=== PATIENT | female | born 1955 | race Caucasian/White ===

== ENCOUNTER 2021-05-18 13:40 | Outpatient (CLI) | payer MEDICARE ==
--- NOTE | 2021-05-18 16:54 | XRAY Report ---
PROCEDURE: Hip w/Pelvis 2-3V RT INDICATIONS: PAIN IN RIGHT HIP TECHNIQUE: AP pelvis with lateral view(s) of the hip(s). COMPARISON: None. FINDINGS: Bones: No acute fractures or dislocations. There is mild flattening deformity of the right femoral h ead. Pelvic ring appears intact. No suspicious bony lesions. Severe right hip joint space narrowing . Moderate right hip joint periarticular osteophyte formation. Subchondral cyst formation and scleros is adjacent to the right hip. Soft tissues: The visualized bowel gas pattern is normal. No suspicious soft tissue calcifications. IMPRESSION: 1. Severe right hip osteoarthritis, possibly secondary to avascular necrosis. Initial further assessm ent with MRI is recommended. Reviewed by: Satish Mccallum MD on 05/18/2021 4:53 PM PST Approved by: Satish Mccallum MD on 05/18/2021 4:53 PM [facility] Station ID: [id number]
== END 2021-05-18 13:41 | disposition home or self-care (01) ==
LOC: DI.N 13:40
PROVIDERS: ATTEND Internal Medicine
DX: M16.11 Unilateral primary osteoarthritis, right hip (principal)

== ENCOUNTER 2021-06-28 12:30 | Outpatient (CLI) | payer MEDICARE ==
--- NOTE | 2021-06-28 16:30 | MRI Report ---
PROCEDURE: Hip RT W/O INDICATIONS: RIGHT HIP PAIN TECHNIQUE: Noncontrast coronal T1 spin echo and STIR through the bony pelvis. Coronal and axial T2 fast spin ec ho with fat saturation, sagittal T1 spin echo, and oblique axial T2 fast spin echo with fat saturatio n through the hip. COMPARISON: Right hip radiographs 05/18/2021. FINDINGS: Image quality: Excellent. Bones and joints: There is full-thickness cartilage loss in the right hip with subchondral cystic ch anges and prominent subchondral edema on both sides of the joint. Marginal osteophytes are present. T here is a moderate joint effusion with moderate synovial hypertrophy. No double line sign is seen to suggest active osteonecrosis. There is mild remodeling of the superior humeral head. Diffuse labral d egeneration is noted. Bone marrow of the pelvic ring and left proximal femur show normal signal throughout. No intraosseo us lesions or acute fractures. Disc desiccation and degenerative endplate changes are seen in the inc luded lower lumbar spine, most prominent at L5-S1. 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 Tendons: The gluteus medius and minimus tendons appear intact, without associated muscle atrophy. T he iliopsoas tendon appears intact, without adjacent bursal fluid collections. Mild proximal hamstrin g tendinosis bilaterally. The tendons for the direct and indirect heads of the rectus femoris muscle appear intact. Soft tissues: There is mild generalized fatty infiltration of the musculature surrounding the hips.. The proximal sciatic neurovascular bundle appears normal adjacent to the hamstring tendons. A large right adnexal simple appearing cyst is seen measuring up to 7.4 x 7.0 x 7.5 cm. IMPRESSION: 1.Severe end-stage degenerative changes in the right hip with mild remodeling of the right femoral he ad and moderate surrounding osseous edema. A moderate joint effusion is seen with synovial hypertroph y. Findings may be secondary to primary osteoarthrosis versus prior trauma or avascular necrosis with secondary degenerative changes, or possibly a nonspecific chronic infectious or inflammatory process . No signs of active osteonecrosis. 2.Degenerative changes in the included lower lumbar spine. 3.Large right adnexal 7.5 cm simple appearing cyst. Consider gynecological consultation. Reviewed by: Dirk Lin MD on 06/28/2021 4:28 PM PDT Approved by: Dirk Lin MD on 06/28/2021 4:28 PM PDT Station ID: [id number]
== END 2021-06-28 12:31 | disposition home or self-care (01) ==
LOC: DI 12:30
PROVIDERS: ATTEND Internal Medicine
DX: M16.11 Unilateral primary osteoarthritis, right hip (principal); M25.451 Effusion, right hip; M67.251 Synovial hypertrophy, not elsewhere classified, right thigh; M47.816 Spondylosis without myelopathy or radiculopathy, lumbar region; N83.8 Other noninflammatory disorders of ovary, fallopian tube and broad ligament

== ENCOUNTER 2022-01-28 11:48 | Outpatient (CLI) | payer MEDICARE ==
--- NOTE | 2022-01-29 07:58 | XRAY Report ---
PROCEDURE: Hip w/Pelvis 1V RT INDICATIONS: R HIP PX TECHNIQUE: AP pelvis with lateral view(s) of the right hip(s). COMPARISON: 05/18/2021 FINDINGS: Bones: No fractures or dislocations. There is severe asymmetric degenerative change in the right hip including superior migration of the femoral head and the acetabulum, flattening and subcortical cyst ic changes of the femoral head, spurring and subcortical sclerosis, and cystic changes at the superio r acetabulum. 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 Pelvic r ing appears intact. No suspicious bony lesions. Soft tissues: The visualized bowel gas pattern is normal. No suspicious soft tissue calcifications. IMPRESSION: 1. 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 2. No significant progression since the prior study of 05/18/2021. Reviewed by: Radha Contreras MD on 01/29/2022 7:56 AM PST Approved by: Radha Contreras MD on 01/29/2022 7:56 AM PST Station ID: [id number]
== END 2022-01-28 11:49 | disposition home or self-care (01) ==
LOC: DI.N 11:48
PROVIDERS: ATTEND Orthopaedic Surgery
DX: M16.11 Unilateral primary osteoarthritis, right hip (principal); Q65.89 Other specified congenital deformities of hip

== ENCOUNTER 2022-02-13 06:47 | Inpatient (IN) | payer MEDICARE ==
[~2022-02-13 06:47] MED LIST: ACETAMINOPHEN 500 MG TABLET PO ONE; CEFAZOLIN 2G/50ML 0.9% NS 2 GM/50 ML BAG IV ONE; CELECOXIB 100 MG CAPSULE PO ONE
[2022-02-13] MEDS ORDERED: VANCOMYCIN 1 GM VIAL ONE (06:55)
[2022-02-13] MEDS ORDERED: BUPIVACAINE 0.25% PF 10 ML VIAL ONE (06:59)
[2022-02-13] MEDS ORDERED: PROPOFOL 500 MG/50 ML 500 MG/50 ML VIAL ONE ×3 (07:18→10:37)
[2022-02-13] MEDS ORDERED: DEXAMETHASONE 10 MG/ML VIAL ONE (07:19)
[2022-02-13] MEDS ORDERED: TRANEXAMIC ACID 1,000 MG/10 ML VIAL ONE (07:19)
[2022-02-13] MEDS ORDERED: BUPIVACAINE 0.5% PF 10 ML VIAL ONE (07:19)
[2022-02-13] MEDS ORDERED: PROPOFOL 200 MG/20 ML VIAL IVP ONE ×3 (07:19→08:50)
[2022-02-13] MEDS ORDERED: fentaNYL 100 MCG/2 ML VIAL ONE ×2 (07:20→12:35)
[2022-02-13] MEDS ORDERED: MIDAZOLAM 2 MG/2 ML VIAL ONE (07:20)
--- NOTE | 2022-02-13 07:37 | ANESTHESIA ---
Pre-Anesthesia VS, & Labs - Diagnosis right hip ostoarthritis - Procedure total hip arthroplasty Vital Signs: Temp Pulse Resp BP Pulse Ox O2 Flow Rate 36.6 C 77 20 194/106 H 97 02/13/22 06:53 02/13/22 06:53 02/13/22 06:53 02/13/22 06:53 02/13/22 06:53 Height: 5 ft 8 in Weight (kg): 76 kg Body Mass Index: 25.4 BMI Classification: Overweight - NPO >8 hours - Is Patient ?: No - Lab Results Current Lab Results: Laboratory Tests 02/13/22 07:13: POC Whole Bld Glucose 107 H Home Medications and Allergies Home Medications: Ambulatory Orders Acetaminophen [Tylenol] 650 mg PO Q6H PRN 02/07/22 Bupropion HCl [Wellbutrin Xl] 300 mg PO DAILY 02/07/22 Calcium Carbonate [Calcium] 600 mg PO DAILY 02/07/22 Cholecalciferol [Vitamin D3] 50 mcg PO DAILY 02/07/22 Gabapentin [Neurontin] 300 mg PO DAILY 02/07/22 Ibuprofen [Motrin] 600 mg PO Q6H PRN 02/07/22 Lisinopril [Zestril] 40 mg PO DAILY 02/07/22 Omeprazole 20 mg PO PRN PRN 02/07/22 Oxycodone HCl/Acetaminophen [Oxycodone-Acetaminophen 10-300] 1 each PO Q6H PRN 02/07/22 Propranolol ER [Inderal LA] 80 mg PO DAILY 02/07/22 Acetaminophen [Tylenol] 650 mg PO Q6H PRN 02/07/22 Bupropion HCl [Wellbutrin Xl] 300 mg PO DAILY 02/07/22 Calcium Carbonate [Calcium] 600 mg PO DAILY 02/07/22 Cholecalciferol [Vitamin D3] 50 mcg PO DAILY 02/07/22 Gabapentin [Neurontin] 300 mg PO DAILY 02/07/22 Ibuprofen [Motrin] 600 mg PO Q6H PRN 02/07/22 Lisinopril [Zestril] 40 mg PO DAILY 02/07/22 Omeprazole 20 mg PO PRN PRN 02/07/22 Oxycodone HCl/Acetaminophen [Oxycodone-Acetaminophen 10-300] 1 each PO Q6H PRN 02/07/22 Propranolol ER [Inderal LA] 80 mg PO DAILY 02/07/22 Allergies/Adverse Reactions: Allergies Allergy/AdvReac Type Severity Reaction Status Date / Time Penicillins Allergy Hives Verified 02/07/22 14:24 Anes History & Medical History - Anesthetic History Anesthesia Complications: reports: No previous complications Family history of Anesthesia Complications: Denies Family history of Malignant Hyperthermia: Denies - Medical History Cardiovascular: reports: Hypertension Pulmonary: reports: None, Other Gastrointestinal: reports: None Urinary: reports: Incontinence Musculoskeletal: reports: Osteoarthritis, Chronic back pain Endocrine/Autoimmune: reports: None Skin: reports: Eczema Smoking Status: Former smoker Psychosocial: reports: No issues indicated - Surgical History Orthopedic: reports: Other Exam General: Alert, Oriented x3, Cooperative, No acute distress Dental: Loose/Frag, Poor dentition Mouth Openin Fingerbreadth Neck Mobility: Normal Mallampati classification: III Thyromental Distance: less than 4 cm Respiratory: Wheezing, Expiration Cardiovascular: Regular rate, Normal S1, Normal S2, No murmurs Mental/Cognitive Status: Alert/Oriented X3, Normal for patient Cognitive Status: Within normal limits Plan Anesthesia Type: General, Spinal, Fascia Iliaca Block Consent for Procedure(s) Verified and Reviewed: Yes Code Status: Attempt Resuscitation ASA classification: 2-Mild systemic disease Is this case an emergency?: No
[2022-02-13] MEDS ORDERED: BUPIVACAINE 0.25% PF 10 ML VIAL SUBQ ONE (09:08)
[2022-02-13] MEDS ORDERED: VANCOMYCIN 1 GM VIAL MC ONE ×2 (09:32)
[2022-02-13] MEDS ORDERED: ONDANSETRON 4 MG/2 ML VIAL ONE (10:05)
--- NOTE | 2022-02-13 11:13 | OPERATIVE REPORT ---
Operative Report - General Procedure Date: 02/13/22 Planned Procedure: Right total hip replacement Pre-Op Diagnosis: Osteoarthritis right hip Procedure Performed: Right total hip replacement using Lopez & Nephew total hip system: 52 mm R3 manuel tabular cup, dual mobility liner and femoral head, #15 cemented Synergy femoral component, +4 femoral neck Post Op Diagnosis: Same as preoperative diagnosis - Procedure Note Primary Surgeon: Ricci Nunez MD Secondary Surgeon: Jessy Harris, KAREN; KAREN De La Garza Anesthesia Provider: Jennifer Hudson CRNA Anesthesia Technique: Regional block, Spinal Estimated Blood Loss (mL): 200 Indications: This is a 66-year-old woman with chronic and progressive pain to right hip. She has marked pain in the right hip and groin with weightbearing. She has limited mobility and limited walking distance. Most all of her activities are confined at home. She uses a walking aid full-time as has pain most of the time with weightbearing and to lesser time at rest. Her exam showed limited and painful movement of right hip, positive Stinchfield and positive FADIR test reproducing her pain. Her x-ray showed advanced degenerative joint disease with decreased coverage of femoral head, abnormal shape of head with collapse, complete loss of joint space over weightbearing dome, osteophytes. She has end-stage osteoarthritis of the right hip. Her comorbidities are longstanding cigarette smoking and hypertension. She has some chronic lung disease as well from long- term cigarette smoking. She did quit smoking several weeks ago to be able to more safely undergo hip replacement surgery. She has had preoperative medical evaluation and has attended joint camp. Informed consent had been obtained at the office. Findings: There was complete loss of articular cartilage to the abnormally shaped femoral head, osteophytes about the femoral head and neck. Much of the acetabular cartilage was gone as well. There are osteophytes about the acetabulum. Complications: None - Other Other Information/Narrative: After satisfactory spinal anesthesia had been achieved, the patient was placed in a lateral decubitus position with the right hip facing superiorly. The patient was secured in the lateral decubitus position using a pegboard with 2 post securing the torso and 2 posts securing the pelvis. The right hip and r ight lower extremity were prepped and draped in a sterile manner in the usual fashion. A timeout procedure was performed by the entire operating room team and all were in agreement. A longitudinal incision was made about the lateral right hip beginning at the vastus lateralis ridge of the proximal femur and extending it proximally approximately 3 fingerbreadths above the trochanter. The subcutaneous tissue and fascia johnny were split in line with the incision. The anterior one third of the gluteus medius was incised at the myotendinous junction. The gluteus medius was retracted medially. The hip capsule was exposed and was split in a T-shaped fashion. Part of the anterior hip capsule was excised. The femoral head was dislocated with flexion, adduction and external rotation. An osteotomy was done to the femoral neck using a osteotomy guide. Retractors were placed behind the femoral neck to protect the soft tissues from the oscillating saw When performing the femoral neck osteotomy. The proximal femur was retracted. 2 acetabular retractors were placed one anteriorly directly against bone to reduce any soft tissue impingement to femoral nerve. The second retractor was placed more posteriorly directly against bone and preventing any impingement against sciatic nerve. The acetabulum was prepared with a large curette. Medialization of the acetabulum was performed with a small acetabular reamer and then widening was done up to a 51 mm reamer the final reamers were placed in approximately 20 degrees anteversion and 45 degrees of abduction. A trial acetabular component was inserted, 51 mm and this fit well. A permanent 52 mm R3 acetabular 3-hole component was then impacted in 40 degrees of abduction and approximately 20 degrees of anteversion. This had good fixation to push pull and rotation. A single 30 mm superior acetabular screw was inserted. The stability of the acetabular cup was very good. A Dual mobility acetabular liner was inserted into the cup. The femoral canal was opened with a box osteotome, starting reamersUp to 15 mm. Broaching was carried out to a #15. Calcar reaming was performed. Good fit and stability to the #15 stem was achieved. Trial reduction was performed. Hip motion was very good and the hip was stable to dislocation maneuvers. The trial components were removed. The femoral canal was cleaned with pulsatile lavage. A cement plug was inserted distally.Antibiotic impregnated cement was injected with glue gun into femoral canal .The #15 Synergy standard offset femoral stem was impacted and fully seated. The femoral head was impacted on the femoral trunnion. There was good stability to push pull and rotation. A Dual mobility +4 head was impacted on the trunnion. The hip was reduced, had good leg length tension and good stability with dislocation maneuvers. The hip had a tendency to dislocate with adduction past neutral with external rotation, very stable in neutral adduction and rotation, flexion and in ternal rotation. 3-minute lavage with dilute Betadine was performed. 2 g of vancomycin powder was inserted about the joint. The hip abductors were repaired at the myotendinous junction with #1 Strata fix. The fascia johnny was closed with #1 Strata fix. The subcutaneous tissue was closed with 2-0 Vicryl. The skin was closed with a 3-0 Monocryl subcuticular closure and Dermabond. The patient tolerated the procedure well. A physician assistant administrator was utilized during the procedure to provide retraction and protection of neurovascular structures as well as to facilitate dislocation and reduction of the hip joint.The patient received 2 g of Ancef intravenously and a gram of Tranexamic acid
[2022-02-13] MEDS ORDERED: oxyCODONE 5 MG TABLET PO PRN (11:52)
[2022-02-13] MEDS ORDERED: SODIUM CHLORIDE FLUSH 0.9% 10 ML SYRINGE IVP PRN (11:52)
[2022-02-13] MEDS ORDERED: ONDANSETRON 4 MG/2 ML VIAL IVP PRN ×2 (11:52→12:29)
[2022-02-13] MEDS ORDERED: SODIUM CHLORIDE 0.9% 1,000 ML IV ONE (11:52)
[2022-02-13] MEDS ORDERED: DOCUSATE SODIUM 100 MG CAPSULE PO PRN (11:52)
[2022-02-13] MEDS ORDERED: fentaNYL 250 MCG/5 ML VIAL IVP PRN (11:52)
[2022-02-13] MEDS ORDERED: LACTATED RINGERS 500 ML IV ONE (12:09)
[2022-02-13] MEDS ORDERED: IPRATROPIUM/ALBUTEROL 3 ML NEB INH PRN (12:17)
[2022-02-13] MEDS ORDERED: NALOXONE 0.4 MG/ML VIAL IVP PRN (12:29)
[2022-02-13] MEDS ORDERED: ATROPINE ABBOJECT 1 MG/10 ML SYRINGE IVP PRN (12:29)
[2022-02-13] MEDS ORDERED: MORPHINE 2 MG/ML CARPUJECT IVP PRN (12:29)
[2022-02-13] MEDS ORDERED: HYDROmorphone 0.5 MG/0.5 ML SYRINGE IVP PRN (12:29)
[2022-02-13] MEDS: fentaNYL 100 MCG/2 ML VIAL IVP PRN ×2 (12:35→12:45)
--- NOTE | 2022-02-13 12:46 | XRAY Report ---
PROCEDURE: Hip w/Pelvis 2-3V RT INDICATIONS: Post operative imaging TECHNIQUE: AP pelvis with lateral view(s) of the right hip(s). COMPARISON: X-ray pelvis right hip, 01/28/2022. FINDINGS: There is rotation. Bones: Status post right hip arthroplasty. The prosthesis is in expected position. Moderate left hip joint degeneration is present. Pelvic ring appears intact. No suspicious bony lesions. Degenerativ e joint disease in sacroiliac joints. Degenerative disc and facet disease in the lower lumbar spine. Soft tissues: The visualized bowel gas pattern is normal. No suspicious soft tissue calcifications. IMPRESSION: Expected postsurgical changes after right hip arthroplasty. Reviewed by: Brent Soliman MD on 02/13/2022 12:44 PM PST Approved by: Brent Soliman MD on 02/13/2022 12:44 PM PST Station ID: [id number]
--- NOTE | 2022-02-13 12:58 | ANESTHESIA POST OP EVALUATION ---
Anesthesia Post Eval - Post Anesthesia Eval Vitals: Last Vital Signs Temp 36.9 C 02/13/22 12:50 Pulse 61 02/13/22 12:50 Resp 16 02/13/22 12:50 BP 145/76 H 02/13/22 12:50 Pulse Ox 100 02/13/22 12:50 O2 Flow Rate CV Function Including HR & BP: Stable Pain Control: Satisfactory Nausea & Vomiting: Negative Mental Status: Baseline Respiratory Status: Airway Patent Hydration Status: Satisfactory Anesthesia Complications: None
[2022-02-13] MEDS ORDERED: LACTATED RINGERS 1,000 ML IV SCH (13:00)
[2022-02-13] MEDS: NS W/20 MEQ KCL 1,000 ML IV SCH (13:36)
[2022-02-13] MEDS: ACETAMINOPHEN 500 MG TABLET PO SCH ×2 (13:42→17:40)
[2022-02-13] MEDS ORDERED: GABAPENTIN 300 MG CAPSULE PO SCH (14:00)
[2022-02-13] MEDS: PROPRANOLOL 40 MG TABLET PO SCH (15:19)
[2022-02-13] MEDS: buPROPion SR 150 MG TABLET PO SCH (15:19)
[2022-02-13] MEDS: oxyCODONE 5 MG TABLET PO PRN ×2 (16:15→21:15)
[2022-02-13] MEDS: CEFAZOLIN 2G/50ML 0.9% NS 2 GM/50 ML BAG IV SCH (17:32)
[2022-02-13] MEDS: SODIUM CHLORIDE FLUSH 0.9% 10 ML SYRINGE IVP SCH (17:36)
[2022-02-13] MEDS: ethyl alcohoL 62% SWAB AMPULE NAS SCH (21:15)
[2022-02-13] MEDS: CELECOXIB 100 MG CAPSULE PO SCH (21:15)
[2022-02-14] MEDS: ACETAMINOPHEN 500 MG TABLET PO SCH ×4 (00:31→20:48)
[2022-02-14] MEDS: CEFAZOLIN 2G/50ML 0.9% NS 2 GM/50 ML BAG IV SCH (00:32)
[2022-02-14] MEDS ORDERED: fentaNYL 100 MCG/2 ML VIAL ONE ×3 (00:57→18:48)
[2022-02-14] MEDS ORDERED: fentaNYL 100 MCG/2 ML VIAL IVP PRN ×2 (01:18→12:46)
[2022-02-14] MEDS: SODIUM CHLORIDE FLUSH 0.9% 10 ML SYRINGE IVP SCH ×3 (01:39→15:58)
[2022-02-14] MEDS: NS W/20 MEQ KCL 1,000 ML IV SCH (02:03)
[2022-02-14] MEDS: oxyCODONE 5 MG TABLET PO PRN ×3 (04:44→12:42)
--- NOTE | 2022-02-14 08:31 | PROVIDER PROGRESS NOTE ---
Subjective - General Admit Date: 02/14/22 Procedure Date: 02/13/22 Post Op Days: 1 Procedure Performed: Right total hip arthroplasty - Review of Systems Wound/Incisions: positive: Dressing dry and intact, No drainage General: positive: No symptoms. negative: Fever, Weakness, Chills - Other Other Information/Narrative: Alert and oriented, lying in bed, alone in room Denies chest pain, dyspnea, fever, chills Reports significant episode of pain overnight described as spasms of the right leg. States she is in significant pain on current pain regimen Walked 2 steps with physical therapy yesterday Objective - Patient Data Vital Signs: Vital Signs x48h Temp Pulse Resp BP Pulse Ox 02/14/22 06:29 155/86 H 02/14/22 04:36 36.7 C 63 20 173/86 H 96 02/14/22 00:32 36.6 C 64 18 125/84 H 97 Weight: Weight 02/12/22 02/13/22 02/14/22 23:59 23:59 23:59 Weight (kg) 76 kg Intake & Output: Intake and Output Totals x24h 02/12/22 02/13/22 02/14/22 23:59 23:59 23:59 Intake Total 960 933.75 Output Total 200 950 Balance 760 -16.25 - Imaging Results Radiology Imaging: positive: Final report received, EMP read indepedently - Current Medications Current Medications: Current Medications Generic Name Dose Route Start Last Admin Trade Name Freq PRN Reason Stop Dose Admin Acetaminophen 1,000 mg 02/13/22 12:00 02/14/22 00:31 Acetaminophen 500 Mg Tablet PO 1,000 mg Q6H AKI Administration Alcohol 1 amp 02/13/22 21:00 02/13/22 21:15 Ethyl Alcohol 62% Swab Ampule SETH 1 amp BID AKI Administration Bupropion HCl 300 mg 02/13/22 15:00 02/13/22 15:19 Bupropion Sr 150 Mg Tablet PO 300 mg DAILY AKI Administration Celecoxib 200 mg 02/13/22 21:00 02/13/22 21:15 Celecoxib 100 Mg Capsule PO 200 mg BID AKI Administration Fentanyl 25 mcg 02/14/22 01:18 02/14/22 01:25 Fentanyl 100 Mcg/2 Ml Vial IVP 25 mcg Q2HR PRN Administration Breakthrough Pain Potassium Chloride/Sodium Chloride 1,000 mls @ 75 mls/hr 02/13/22 12:00 02/14/22 02:03 Normal Saline 0.9% W/20 Meq Kcl IV 75 mls/hr .[id number] AKI Administration Oxycodone HCl 10 mg 02/13/22 15:47 02/14/22 04:44 Oxycodone 5 Mg Tablet PO 10 mg Q4HR PRN Administration PAIN Propranolol HCl 80 mg 02/13/22 15:00 02/13/22 15:19 Propranolol 40 Mg Tablet PO 80 mg DAILY AKI Administration Sodium Chloride 10 ml 02/13/22 17:00 02/14/22 01:39 Sodium Chloride Flush 0.9% 10 Ml Syringe IVP 10 ml 0100,0900,1700 AKI Administration - Physical Exam Wound/Incisions: positive: Healing well, Dressing dry and intact, No drainage. negative: Drainage, Erythema General Appearance: positive: No acute distress, Alert Skin: positive: Color nml, Warm, Dry Neurologic/Psychiatric: positive: Oriented x3, Mood/affect nml Comments/Other: Neurovascularly intact to right lower extremity, femoral and sciatic nerve function intact. Pain with passive hip abduction and flexion as well as knee flexion. Weak quadriceps contraction. Mepilex dressing in place, no drainage or bleeding, no hematoma Impression/Plan - Problem List Problem List: 66-year-old female with a past medical history of hypertension, depression and peripheral neuropathy is postoperative day 1 from a right total hip arthroplasty by Dr. Nunez at [facility] on 02/13/2022. She is neurovascularly intact and tolerating an oral diet. No systemic symptoms. Her pain is not well controlled on exam this morning. She was seen by Dr. Nunez and myself. Plan: -Outpatient discharge instructions provided yesterday please see document for detailed home discharge instructions -Added tramadol 50 mg every 6 hours for pain control -Changed gabapentin from daily to 3 times daily per patient home medication reg imen -She takes at least 20 mg of oxycodone daily prescribed by her primary care provider, I have ordered 10 mg of oxycodone every 6 as needed. At minimum two 10 mg tablets of oxycodone should be given in the evening before bed. -DVT prophylaxis with 81 mg of aspirin twice daily and SCDs -Updated pain regimen includes Celebrex, Tylenol, oxycodone, tramadol and IV fentanyl for breakthrough pain -Continue regular diet, no IV fluids needed at this time -Ambulate at all times with front wheel walker -Physical therapy to evaluate and treat the patient today, will provide recommendation for safe discharge -No outpatient antibiotics needed at this time UDPATE 12:45 PM: Call received from nurse stating patient is in intense pain which is still poorly controlled despite above regimen. Pain inhibits her ability to walk and complete physical therapy with therapist today. I discussed with hospitalist Dr. Abebe who stated the patient has been transferred to observation status as she has been in the hospital for greater than 24 hours after outpatient surgery. I transferred her from outpatient to observation status. In order to better assess her pain control needs, she was transitioned to IV pain medications only. This included IV fentanyl 25 mg every 3 hours. The total population of her IV narcotic intake will be used to calculate her outpatient oral narcotic needs in order to achieve satisfactory pain control and allow her to work with physical therapy. Per nurse, physical therapy stated the patient is not safe for discharge at this time. Physical therapy has involved social work stating the patient may need discharge to a fci rather than home as planned.
[2022-02-14] MEDS: ethyl alcohoL 62% SWAB AMPULE NAS SCH ×2 (08:37→20:48)
[2022-02-14] MEDS: CELECOXIB 100 MG CAPSULE PO SCH ×2 (08:37→20:48)
[2022-02-14] MEDS: PROPRANOLOL 40 MG TABLET PO SCH (08:37)
[2022-02-14] MEDS: ASPIRIN EC 81 MG TABLET PO SCH ×2 (08:38→20:48)
[2022-02-14] MEDS: GABAPENTIN 300 MG CAPSULE PO SCH ×3 (08:38→20:49)
[2022-02-14] MEDS: buPROPion SR 150 MG TABLET PO SCH (08:38)
[2022-02-14] MEDS ORDERED: MIDAZOLAM 2 MG/2 ML VIAL ONE (09:59)
[2022-02-14] MEDS: traMADol 50 MG TABLET PO SCH ×2 (10:25→17:43)
[2022-02-14] MEDS ORDERED: MORPHINE 10 MG/ML VIAL IVP PRN (13:02)
[2022-02-14] MEDS ORDERED: fentaNYL 100 MCG/2 ML VIAL IVP SCH (15:00)
--- NOTE | 2022-02-14 17:21 | PROVIDER PROGRESS NOTE ---
Subjective - General Admit Date: 02/14/22 Procedure Date: 02/13/22 Post Op Days: 1 Procedure Performed: Right total hip arthroplasty - Review of Systems Wound/Incisions: positive: Healing well, Dressing dry and intact, No drainage. negative: Drainage, Erythema General: positive: No symptoms. negative: Fever, Weakness, Chills - Other Other Information/Narrative: During the course of today, the patient's pain with movement of her right leg has been quite marked. I have seen her at least twice and her pain seemed to be better for a while with increasing her pain medications but when I last saw her early this afternoon her pain was still quite marked with attempt at movement. She is relatively comfortable when not moving her right leg. She denies any abdominal discomfort. She cannot recall an episode where the pain abruptly changed as seem to occur yesterday after physical therapy. She had an abduction brace in place most of the night. She was moved several times during the evening to try to help her pain. Objective - Patient Data Vital Signs: Vital Signs x48h Temp Pulse Resp BP Pulse Ox 02/14/22 16:20 36.4 C L 57 L 17 141/76 H 97 02/14/22 10:00 36.7 C 58 L 18 136/76 H 98 Weight: Weight 02/12/22 02/13/22 02/14/22 23:59 23:59 23:59 Weight (kg) 76 kg Intake & Output: Intake and Output Totals x24h 02/12/22 02/13/22 02/14/22 23:59 23:59 23:59 Intake Total 960 2423.75 Output Total 200 1650 Balance 760 773.75 - Imaging Results Imaging Results Comments: The patient had a CT scan of the right hip. This shows a disengagement of the Dual mobility hip replacement, fracture acetabulum, no change in femoral component or acetabular cup position when compared to initial postoperative AP and lateral xrays. - Current Medications Current Medications: Current Medications Generic Name Dose Route Start Last Admin Trade Name Freq PRN Reason Stop Dose Admin Acetaminophen 1,000 mg 02/13/22 12:00 02/14/22 14:33 Acetaminophen 500 Mg Tablet PO 1,000 mg Q6H AKI Administration Alcohol 1 amp 02/13/22 21:00 02/14/22 08:37 Ethyl Alcohol 62% Swab Ampule SETH 1 amp BID AKI Administration Aspirin 81 mg 02/14/22 09:00 02/14/22 08:38 Aspirin Ec 81 Mg Tablet PO 81 mg BID AKI Administration Bupropion HCl 300 mg 02/13/22 15:00 02/14/22 08:38 Bupropion Sr 150 Mg Tablet PO 300 mg DAILY AKI Administration Celecoxib 200 mg 02/13/22 21:00 02/14/22 08:37 Celecoxib 100 Mg Capsule PO 200 mg BID AKI Administration Gabapentin 300 mg 02/14/22 09:00 02/14/22 14:34 Gabapentin 300 Mg Capsule PO 300 mg TID AKI Administration Propranolol HCl 80 mg 02/13/22 15:00 02/14/22 08:37 Propranolol 40 Mg Tablet PO 80 mg DAILY AKI Administration Sodium Chloride 10 ml 02/13/22 17:00 02/14/22 15:58 Sodium Chloride Flush 0.9% 10 Ml Syringe IVP 10 ml 0100,0900,1700 AKI Administration Tramadol HCl 50 mg 02/14/22 10:00 02/14/22 10:25 Tramadol 50 Mg Tablet PO 50 mg Q6HR AKI Administration - Physical Exam Wound/Incisions: positive: Dressing dry and intact General Appearance: positive: Mild distress Neurologic/Psychiatric: positive: Oriented x3 Comments/Other: The patient's abdomen is soft and nontender. The right leg does not show clinical deformity but there is some shortening of the right leg. The incision is clean and dry, no drainage or sign of hematoma. Femoral and sciatic nerve functions are completely intact. She has good peripheral pulses. She has marked pain with any attempted movement of right leg Impression/Plan - Problem List Problem List: Postoperative complication with acute dislocation right total hip replacement and disassociation of the dual mobility component. The disassociation of the dual mobility component will make it more complicated for close reduction to be accomplished. I discussed the complication with the patient and patient's son Jamie. I spoke to Jamie over the telephone. The plan is to attempt a closed reduction of the right hip. If this cannot be accomplished, no further treatment tonight would be rendered. If the hip cannot be reduced, then she needs to have open surgery for her right hip done electively but urgently. The plan will be for close reduction right total hip replacement under general anesthesia. I discussed the risk, goals and alternatives with the patient and her son. Both are agreement to proceeding with a closed reduction of the right hip. If this can be successfully accomplished, her pain should be markedly improved. Informed consent was obtained from patient and verbal from son. I have also discussed the complication and need for surgery this evening with Dr. Abebe our hospitalist
--- NOTE | 2022-02-14 17:38 | CT Report ---
PROCEDURE: PELVIS WO INDICATIONS: s/p hip replacment and inc pain TECHNIQUE: Noncontrast 3 mm axial sections acquired through the bony pelvis, with coronal and sagittal reformatt ing. For radiation dose reduction, the following was used: automated exposure control, adjustment of mA and/or kV according to patient size. COMPARISON: None. FINDINGS: Image quality: Excellent. Imaging findings shows a dislocated right hip prosthesis. There is also air in the subcutaneous tissu es about the hip extending down the proximal thigh which may be secondary to acute injury versus rece nt surgery and clinical correlation is recommended. I do not definitely identify any fracture. Atherosclerotic calcifications are noted. There is a 10 cm cystic structure in the region of the patient's right adnexa. If further evaluation clinically indicated pelvic ultrasound may be of further clinical value. IMPRESSION: 1. Dislocated right total hip prosthesis. There is associated subcutaneous air and what is likely hem atoma extending down from the hip joint region into the lateral proximal thigh. Question whether this is secondary to acute injury or recent postsurgical change. 2. 10 cm cystic mass involving the region of the patient's right adnexa. Recommend a pelvic ultrasoun d and gynecologic consultation. 3. Atherosclerotic vascular calcifications. 4. No definite evidence for acute fracture seen. Reviewed by: Arnav White MD on 02/14/2022 5:37 PM PST Approved by: Arnav White MD on 02/14/2022 5:37 PM PST Station ID: [id number]
[2022-02-14] MEDS ORDERED: KETAMINE 500 MG/10 ML VIAL ONE (18:08)
[2022-02-14] MEDS ORDERED: PROPOFOL 200 MG/20 ML VIAL IVP ONE (18:29)
[2022-02-14] MEDS ORDERED: BUPIVACAINE 0.5% PF 10 ML VIAL ONE (18:40)
--- NOTE | 2022-02-14 18:51 | OPERATIVE REPORT ---
Operative Report - General Admit Date: 02/14/22 Planned Procedure: Closed reduction right hip dislocation, arthroplasty Pre-Op Diagnosis: Dislocation of right total hip arthroplasty Procedure Performed: Closed reduction of right hip dislocation arthroplasty Post Op Diagnosis: Same as preoperative diagnosis - Procedure Note Primary Surgeon: Ricci Nunez MD Secondary Surgeon: Jessy JONES Anesthesia Provider: Lakisha Vick CRNA Anesthesia Technique: MAC Estimated Blood Loss (mL): 0 Indications: This is a 66-year-old woman who underwent a right total hip arthroplasty yesterday with a dual mobility cup. She had considerable pain today without any significant improvement when moving her right hip. She had pain with passive movement of right hip. Her incision was clean and dry, dressing dry. Femoral and sciatic nerve functions were intact. She had no deficit to pulses right leg. Her CT scan obtained this afternoon showed a dislocation of the right hip, dissociation of the dual mobility cup, inferior acetabular fracture in the area of the ischium. Neither the cup position or the femoral component were changed in alignment. Surgery was being done on a emergent basis, close reduction of right hip arthroplasty after informed consent of complication to patient and her son. Findings: Hip dislocation with dissociation of dual mobility acetabular liner, right hipThe femoral component was stable. The acetabular cup did not seem to move with range of motion. The hip seem to reduce with longitudinal traction and internal rotation. However, its not clear that the 2 piece dual mobility is fully engaged.The hip was stable with abduction And rotation. The hip seem to redislocate with flexion and neutral hip rotation but not when the hip was in 90 degrees of flexion and slight abduction. Complications: none - Other Other Information/Narrative: Patient was brought to the operating room, placed in a supine position on the operating room table. After satisfactory anesthesia was achieved, a timeout procedure was performed by the entire operating room team and all were in agreement. The C-arm image intensifier was available for radiographic visualization. The hip could be reduced with longitudinal traction in the supine position with internal rotation, countertraction over the superior iliac spines. After the hip had been reduced and verified, the hip was placed to range of motion to determine stability. The hip seemed to really dislocate with 90 degrees of flexion and neutral rotation but not with flexion at 90 degrees with slight abduction. Internal rotation was stable. Doing continuous fluoroscopy, I did not see any motion in the femoral component or acetabular component. Radiographs were not fully discernible as to the dual mobility liner realigning or whether there was still partially dissociation. The shortening and discrepancy in leg appearance was corrected. The patient was secured in the hip abduction pillow with no sign of clinical deformity to her right leg.The post operative x-rays in the recovery room do not show any intra prosthetic dislocation.
[2022-02-14] MEDS ORDERED: LACTATED RINGERS 1,000 ML IV ONE (18:55)
--- NOTE | 2022-02-14 19:17 | XRAY Report ---
PROCEDURE: Hip w/Pelvis 1V RT INDICATIONS: post reduction imaging TECHNIQUE: AP pelvis with lateral view(s) of the right hip(s). COMPARISON: CT pelvis 02/14/2022 FINDINGS: Bones: Right hip arthroplasty is present. Visualized portions of the prosthesis are intact without fr acture. Distal aspect of the prosthetic femoral shaft is not included within the [id number]. Arth ritic changes are present within the left hip. Soft tissues: The visualized bowel gas pattern is normal. No suspicious soft tissue calcifications. IMPRESSION: Right hip arthroplasty as above.. Reviewed by: Sonja Lewis MD on 02/14/2022 7:15 PM PST Approved by: Sonja Lewis MD on 02/14/2022 7:15 PM PST Station ID: [id number]
--- NOTE | 2022-02-14 19:34 | XRAY Report ---
PROCEDURE: OR C-Arm Procedure INDICATIONS: CLOSED REDUCTION SURGERY FLUORO TIME: 0.27 TECHNIQUE: Intraoperative images provided for evaluation. COMPARISON: None. FINDINGS: Partially visualized right hip arthroplasty is present. There is good anatomic alignment. It is noted that the entirety of the acetabulum as well as distal shaft are not included in the [id number]. IMPRESSION: Intraoperative reduction of hip arthroplasty. Reviewed by: Sonja Lewis MD on 02/14/2022 7:33 PM PST Approved by: Sonja Lewis MD on 02/14/2022 7:33 PM PST Station ID: [id number]
--- NOTE | 2022-02-14 20:02 | ANESTHESIA ---
Pre-Anesthesia VS, & Labs - Diagnosis dislocation right hip post total hip arthroplasty - Procedure manupulation of right hip Vital Signs: Temp Pulse Resp BP Pulse Ox O2 Flow Rate 36.5 C 59 L 16 179/97 H 97 2 02/14/22 19:50 02/14/22 19:50 02/14/22 19:50 02/14/22 19:50 02/14/22 19:50 02/14/22 19:50 Height: 5 ft 8 in Weight (kg): 76 kg Body Mass Index: 25.4 BMI Classification: Overweight - NPO >8 hours - Is Patient ?: No - Lab Results Current Lab Results: Laboratory Tests 02/13/22 07:13: POC Whole Bld Glucose 107 H Home Medications and Allergies Home Medications: Ambulatory Orders Acetaminophen [Tylenol] 650 mg PO Q6H PRN 02/07/22 Bupropion HCl [Wellbutrin Xl] 300 mg PO DAILY 02/07/22 Calcium Carbonate [Calcium] 600 mg PO DAILY 02/07/22 Cholecalciferol [Vitamin D3] 50 mcg PO DAILY 02/07/22 Gabapentin [Neurontin] 300 mg PO DAILY 02/07/22 Ibuprofen [Motrin] 600 mg PO Q6H PRN 02/07/22 Lisinopril [Zestril] 40 mg PO DAILY 02/07/22 Omeprazole 20 mg PO PRN PRN 02/07/22 Oxycodone HCl/Acetaminophen [Oxycodone-Acetaminophen 10-300] 1 each PO Q6H PRN 02/07/22 Propranolol ER [Inderal LA] 80 mg PO DAILY 02/07/22 Active Medications Acetaminophen (Acetaminophen 500 Mg Tablet) 1,000 mg PO Q6H [facility] Last Admin: 02/14/22 14:33 Dose: 1,000 mg Albuterol/Ipratropium (Ipratropium/Albuterol 3 Ml Neb) 3 ml INH Q4HR PRN PRN Reason: Wheezing Alcohol (Ethyl Alcohol 62% Swab Ampule) 1 amp SETH BID [facility] Last Admin: 02/14/22 08:37 Dose: 1 amp Aspirin (Aspirin Ec 81 Mg Tablet) 81 mg PO BID [facility] Last Admin: 02/14/22 08:38 Dose: 81 mg Bupropion HCl (Bupropion Sr 150 Mg Tablet) 300 mg PO DAILY [facility] Last Admin: 02/14/22 08:38 Dose: 300 mg Celecoxib (Celecoxib 100 Mg Capsule) 200 mg PO BID [facility] Last Admin: 02/14/22 08:37 Dose: 200 mg Docusate Sodium (Docusate Sodium 100 Mg Capsule) 100 mg PO BID PRN PRN Reason: Constipation Fentanyl (Fentanyl 100 Mcg/2 Ml Vial) 12.5 mcg IVP Q3HR PRN PRN Reason: Severe Pain Gabapentin (Gabapentin 300 Mg Capsule) 300 mg PO TID [facility] Last Admin: 02/14/22 14:34 Dose: 300 mg Ondansetron HCl (Ondansetron 4 Mg/2 Ml Vial) 4 mg IVP Q6HR PRN PRN Reason: Nausea / Vomiting Propranolol HCl (Propranolol 40 Mg Tablet) 80 mg PO DAILY [facility] Last Admin: 02/14/22 08:37 Dose: 80 mg Sodium Chloride (Sodium Chloride Flush 0.9% 10 Ml Syringe) 10 ml IVP 0100,0900,1700 [facility] Last Admin: 02/14/22 15:58 Dose: 10 ml Sodium Chloride (Sodium Chloride Flush 0.9% 10 Ml Syringe) 10 ml IVP PRN PRN PRN Reason: NEEDED PER PROVIDER ORDERS Tramadol HCl (Tramadol 50 Mg Tablet) 50 mg PO Q6HR [facility] Last Admin: 02/14/22 17:43 Dose: 50 mg Acetaminophen [Tylenol] 650 mg PO Q6H PRN 02/07/22 Bupropion HCl [Wellbutrin Xl] 300 mg PO DAILY 02/07/22 Calcium Carbonate [Calcium] 600 mg PO DAILY 02/07/22 Cholecalciferol [Vitamin D3] 50 mcg PO DAILY 02/07/22 Gabapentin [Neurontin] 300 mg PO DAILY 02/07/22 Ibuprofen [Motrin] 600 mg PO Q6H PRN 02/07/22 Lisinopril [Zestril] 40 mg PO DAILY 02/07/22 Omeprazole 20 mg PO PRN PRN 02/07/22 Oxycodone HCl/Acetaminophen [Oxycodone-Acetaminophen 10-300] 1 each PO Q6H PRN 02/07/22 Propranolol ER [Inderal LA] 80 mg PO DAILY 02/07/22 Allergies/Adverse Reactions: Allergies Allergy/AdvReac Type Severity Reaction Status Date / Time Penicillins Allergy Hives Verified 02/07/22 14:24 Anes History & Medical History - Anesthetic History Anesthesia Complications: reports: No previous complications - Medical History Cardiovascular: reports: Hypertension Pulmonary: reports: None, Other Gastrointestinal: reports: None Urinary: reports: Incontinence Musculoskeletal: reports: Osteoarthritis, Chronic back pain Endocrine/Autoimmune: reports: None Skin: reports: Eczema Smoking Status: Former smoker Psychosocial: reports: No issues indicated History of Cancer?: No - Surgical History Orthopedic: reports: Hip replacement, Other Exam General: Alert, Oriented x3, Cooperative, Moderate distress Dental: Loose/Frag, Poor dentition Mouth Opening: Greater than 4 Fingerbreadths Neck Mobility: Normal Mallampati classification: III Thyromental Distance: greater than 6 cm Respiratory: Lungs clear, Decreased breath sounds Cardiovascular: Regular rate, Normal S1, Normal S2 Plan Anesthesia Type: General, Total IV, Fascia Iliaca Block Consent for Procedure(s) Verified and Reviewed: Yes Code Status: Attempt Resuscitation ASA classification: 2-Mild systemic disease Is this case an emergency?: No
--- NOTE | 2022-02-14 20:04 | ANESTHESIA POST OP EVALUATION ---
Anesthesia Post Eval - Post Anesthesia Eval Vitals: Last Vital Signs Temp 36.5 C 02/14/22 19:50 Pulse 59 L 02/14/22 19:50 Resp 16 02/14/22 19:50 BP 179/97 H 02/14/22 19:50 Pulse Ox 97 02/14/22 19:50 O2 Flow Rate 2 02/14/22 19:50 CV Function Including HR & BP: Stable Pain Control: Satisfactory Nausea & Vomiting: Negative Mental Status: Baseline Respiratory Status: Airway Patent Hydration Status: Satisfactory Anesthesia Complications: None
[2022-02-14] MEDS: fentaNYL 100 MCG/2 ML VIAL IVP PRN (22:06)
[2022-02-15] MEDS: traMADol 50 MG TABLET PO SCH ×4 (00:23→18:25)
[2022-02-15] MEDS: SODIUM CHLORIDE FLUSH 0.9% 10 ML SYRINGE IVP SCH ×3 (00:25→17:00)
[2022-02-15] MEDS: ACETAMINOPHEN 500 MG TABLET PO SCH ×4 (02:11→21:19)
[2022-02-15] MEDS: GABAPENTIN 300 MG CAPSULE PO SCH ×3 (05:31→21:19)
[2022-02-15] MEDS: PROPRANOLOL 40 MG TABLET PO SCH (09:08)
[2022-02-15] MEDS: ethyl alcohoL 62% SWAB AMPULE NAS SCH ×2 (09:08→20:37)
[2022-02-15] MEDS: buPROPion SR 150 MG TABLET PO SCH (09:09)
[2022-02-15] MEDS: CELECOXIB 100 MG CAPSULE PO SCH ×2 (09:09→20:37)
[2022-02-15] MEDS: ASPIRIN EC 81 MG TABLET PO SCH ×2 (09:10→20:37)
--- NOTE | 2022-02-15 10:53 | PHARMACY PROGRESS NOTE ---
- Best Possible Medication History Admit Date and Time: 02/14/22 1237 Processed by: Nursing Medication History completed: Yes As the person ultimately responsible for medication therapy, providers are able to order a medication from an existing home medication list in [facility] via the "Reconcile Routine" prior to Confirmation of that medication by functional support analyst. Such practice is discouraged except when the physician, in their clinical judgment, deems that a medical need exists for a medication without regard to previous use.
--- NOTE | 2022-02-15 12:09 | PROVIDER PROGRESS NOTE ---
Subjective - General Admit Date: 02/14/22 Procedure Date: 02/13/22 Post Op Days: 2 Procedure Performed: Right total hip arthroplasty - Review of Systems Wound/Incisions: positive: Dressing dry and intact General: positive: No symptoms. negative: Fever, Weakness, Chills - Other Other Information/Narrative: She definitely has better pain control this morning since closed reduction of her right hip dislocation. She is an abduction pillow. She denies chest pain, shortness of breath, nausea or vomiting.He is tolerating diet and voiding. Objective - Patient Data Vital Signs: Vital Signs x48h Temp Pulse Resp BP Pulse Ox O2 Flow Rate 02/15/22 11:21 36.4 C L 52 L 18 144/71 H 97 02/15/22 08:20 36.5 C 70 169/71 H 100 2 02/15/22 05:27 36.6 C 61 18 159/89 H 98 2 Weight: Weight 02/13/22 02/14/22 02/15/22 23:59 23:59 23:59 Weight (kg) 76 kg 76 kg Intake & Output: Intake and Output Totals x24h 02/13/22 02/14/22 02/15/22 23:59 23:59 23:59 Intake Total 960 3223.75 240 Output Total 200 2400 850 Balance 760 823.75 -610 - Current Medications Current Medications: Current Medications Generic Name Dose Route Start Last Admin Trade Name Freq PRN Reason Stop Dose Admin Acetaminophen 1,000 mg 02/13/22 12:00 02/15/22 09:12 Acetaminophen 500 Mg Tablet PO 1,000 mg Q6H AKI Administration Alcohol 1 amp 02/13/22 21:00 02/15/22 09:08 Ethyl Alcohol 62% Swab Ampule SETH 1 amp BID AKI Administration Aspirin 81 mg 02/14/22 09:00 02/15/22 09:10 Aspirin Ec 81 Mg Tablet PO 81 mg BID AKI Administration Bupropion HCl 300 mg 02/13/22 15:00 02/15/22 09:09 Bupropion Sr 150 Mg Tablet PO 300 mg DAILY AKI Administration Celecoxib 200 mg 02/13/22 21:00 02/15/22 09:09 Celecoxib 100 Mg Capsule PO 200 mg BID AKI Administration Docusate Sodium 100 mg 02/13/22 11:52 02/15/22 09:09 Docusate Sodium 100 Mg Capsule PO 100 mg BID PRN Administration Constipation Fentanyl 12.5 mcg 02/14/22 16:30 02/14/22 22:06 Fentanyl 100 Mcg/2 Ml Vial IVP 12.5 mcg Q3HR PRN Administration Severe Pain Gabapentin 300 mg 02/14/22 09:00 02/15/22 05:31 Gabapentin 300 Mg Capsule PO 300 mg TID AKI Administration Propranolol HCl 80 mg 02/13/22 15:00 02/15/22 09:08 Propranolol 40 Mg Tablet PO 80 mg DAILY AKI Administration Sodium Chloride 10 ml 02/13/22 17:00 02/15/22 09:13 Sodium Chloride Flush 0.9% 10 Ml Syringe IVP 10 ml 0100,0900,1700 AKI Administration Tramadol HCl 50 mg 02/14/22 10:00 02/15/22 05:31 Tramadol 50 Mg Tablet PO 50 mg Q6HR AKI Administration - Physical Exam Respiratory: positive: No respiratory distress Neurologic/Psychiatric: positive: Oriented x3 Comments/Other: She is alert, oriented, states she had a relatively restful night and had good sleep. Her pain is controlled, appears to be comfortable sitting upright, abduction pillow in place. Pulses are intact, circulation intact to right leg. Sciatic and femoral nerve functions are intact to right leg. Leg lengths appear to be relatively equal without sign of clinical deformity to right leg Impression/Plan - Problem List Problem List: Status post hip arthroplasty with complication of fracture dislocation involving right hip requiring closed reduction on postop day 1 in the operating room. I do have concerns for redislocation, obviously this is positional but she is most stable in abduction and internal rotation. Before proceeding with ambulation, I have sought input from [facility] orthopedics. I have placed a call but it has been 3 hours and still have not talked to the orthopedist on-call. I have discussed this with our patient.
--- NOTE | 2022-02-15 13:56 | PROVIDER PROGRESS NOTE ---
Subjective - General Admit Date: 02/14/22 Procedure Date: 02/13/22 Post Op Days: 2 Procedure Performed: Right total hip arthroplasty - Review of Systems Wound/Incisions: positive: Dressing dry and intact General: positive: No symptoms. negative: Fever, Weakness, Chills Objective - Patient Data Vital Signs: Vital Signs x48h Temp Pulse Resp BP Pulse Ox O2 Flow Rate 02/15/22 11:21 36.4 C L 52 L 18 144/71 H 97 02/15/22 08:20 36.5 C 70 169/71 H 100 2 Weight: Weight 02/13/22 02/14/22 02/15/22 23:59 23:59 23:59 Weight (kg) 76 kg 76 kg Intake & Output: Intake and Output Totals x24h 02/13/22 02/14/22 02/15/22 23:59 23:59 23:59 Intake Total 960 3223.75 240 Output Total 200 2400 850 Balance 760 823.75 -610 - Lab Results Other Lab Results: Lab Results x24hrs 02/15/22 Range/Units 12:30 SARS-CoV-2 (PCR) NOT DETECTED - Current Medications Current Medications: Current Medications Generic Name Dose Route Start Last Admin Trade Name Freq PRN Reason Stop Dose Admin Acetaminophen 1,000 mg 02/13/22 12:00 02/15/22 13:11 Acetaminophen 500 Mg Tablet PO 1,000 mg Q6H AKI Administration Alcohol 1 amp 02/13/22 21:00 02/15/22 09:08 Ethyl Alcohol 62% Swab Ampule SETH 1 amp BID AKI Administration Aspirin 81 mg 02/14/22 09:00 02/15/22 09:10 Aspirin Ec 81 Mg Tablet PO 81 mg BID AKI Administration Bupropion HCl 300 mg 02/13/22 15:00 02/15/22 09:09 Bupropion Sr 150 Mg Tablet PO 300 mg DAILY AKI Administration Celecoxib 200 mg 02/13/22 21:00 02/15/22 09:09 Celecoxib 100 Mg Capsule PO 200 mg BID AKI Administration Docusate Sodium 100 mg 02/13/22 11:52 02/15/22 09:09 Docusate Sodium 100 Mg Capsule PO 100 mg BID PRN Administration Constipation Fentanyl 12.5 mcg 02/14/22 16:30 02/14/22 22:06 Fentanyl 100 Mcg/2 Ml Vial IVP 12.5 mcg Q3HR PRN Administration Severe Pain Gabapentin 300 mg 02/14/22 09:00 02/15/22 13:09 Gabapentin 300 Mg Capsule PO 300 mg TID AKI Administration Propranolol HCl 80 mg 02/13/22 15:00 02/15/22 09:08 Propranolol 40 Mg Tablet PO 80 mg DAILY AKI Administration Sodium Chloride 10 ml 02/13/22 17:00 02/15/22 09:13 Sodium Chloride Flush 0.9% 10 Ml Syringe IVP 10 ml 0100,0900,1700 AKI Administration Tramadol HCl 50 mg 02/14/22 10:00 02/15/22 13:09 Tramadol 50 Mg Tablet PO 50 mg Q6HR AKI Administration Impression/Plan - Problem List Problem List: This is an addendum to my previous progress note of today. The patient's condition remains the same. I did have the opportunity to discuss the case with [facility] professor, Dr. Oscar Mcfarlane, orthopedic joint specialist by phone. He was able to review the pushed x-rays and CT and I was able to communicate the necessary clinical information. He recommended nonoperative treatment with strict hip dislocation precautions and a hip spica brace to help control rotation and adduction. As with any brace, there is still the potential for redislocation but it is certainly reasonable and can be successful in number of patients and can prevent revision surgery. If she re dislocates, then surgical revision might be necessary. She needs to stay in the hospital until it is proven that she is safe ambulator for discharge and hopefully with brace. There are not any prosthetists or staging technician on [facility] that service would be hospital that can do hip spica braces. We will try to get the patient up with physical therapy with my presence to make sure she does not externally rotate her foot or adduct her leg past midline.
[2022-02-15] MEDS ORDERED: SIMETHICONE 40 MG/0.6 ML 30 ML BOTTLE PO PRN (14:42)
[2022-02-15] MEDS: fentaNYL 100 MCG/2 ML VIAL IVP PRN (16:54)
[2022-02-16] MEDS: traMADol 50 MG TABLET PO SCH ×4 (00:43→18:42)
[2022-02-16] MEDS: SODIUM CHLORIDE FLUSH 0.9% 10 ML SYRINGE IVP SCH ×3 (00:43→18:43)
[2022-02-16] MEDS: fentaNYL 100 MCG/2 ML VIAL IVP PRN ×3 (02:02→14:30)
[2022-02-16] MEDS: ACETAMINOPHEN 500 MG TABLET PO SCH ×4 (03:48→21:27)
[2022-02-16] MEDS: GABAPENTIN 300 MG CAPSULE PO SCH ×2 (05:03→21:27)
[2022-02-16] MEDS ORDERED: oxyCODONE 5 MG TABLET PO PRN (05:13)
[2022-02-16] MEDS: ethyl alcohoL 62% SWAB AMPULE NAS SCH ×2 (09:10→21:27)
[2022-02-16] MEDS: buPROPion SR 150 MG TABLET PO SCH (09:11)
[2022-02-16] MEDS: CELECOXIB 100 MG CAPSULE PO SCH ×2 (09:13→21:27)
[2022-02-16] MEDS: PROPRANOLOL 40 MG TABLET PO SCH (09:13)
[2022-02-16] MEDS: ASPIRIN EC 81 MG TABLET PO SCH ×2 (09:13→21:27)
[2022-02-16] MEDS: SIMETHICONE CHEW 80 MG TABLET PO PRN (09:19)
--- NOTE | 2022-02-16 10:44 | XRAY Report ---
PROCEDURE: Pelvis 1 View INDICATIONS: Sharp increase in pain, possible dislocation TECHNIQUE: 1 view(s) of the pelvis acquired. COMPARISON: None. FINDINGS: Bones: Dislocation of the right hip arthroplasty is present. No suspicious bony lesions. Soft tissues: Visualized bowel gas pattern is normal. No suspicious soft tissue calcifications. IMPRESSION: Right hip arthroplasty dislocation. Reviewed by: Satish Mccallum MD on 02/16/2022 9:43 AM [facility] Approved by: Satish Mccallum MD on 02/16/2022 9:43 AM [facility] Station ID: [id number]
--- NOTE | 2022-02-16 10:47 | PROVIDER PROGRESS NOTE ---
Subjective - General Admit Date: 02/15/22 Procedure Date: 02/13/22 Post Op Days: 3 Procedure Performed: Right total hip arthroplasty - Review of Systems Wound/Incisions: positive: Dressing dry and intact General: positive: No symptoms. negative: Fever, Weakness, Chills - Other Other Information/Narrative: Alert and oriented, lying in bed with abduction pillow in place Reports leg cramping overnight which is consistent with her restless leg syndrome She reports groin pain is moderately controlled Ate breakfast at 7am without nausea or emesis No chest pain, dyspnea, fever or chills Objective - Patient Data Vital Signs: Vital Signs x48h Temp Pulse Resp BP Pulse Ox 02/16/22 07:43 36.5 C 62 18 156/90 H 97 02/16/22 05:53 36.3 C L 64 20 159/93 H 96 Weight: Weight 02/14/22 02/15/22 02/16/22 23:59 23:59 23:59 Weight (kg) 76 kg Intake & Output: Intake and Output Totals x24h 02/14/22 02/15/22 02/16/22 23:59 23:59 23:59 Intake Total 3223.75 980 340 Output Total 2400 1450 300 Balance 823.75 -470 40 - Lab Results Other Lab Results: Lab Results x24hrs 02/15/22 Range/Units 12:30 SARS-CoV-2 (PCR) NOT DETECTED - Imaging Results Radiology Imaging: positive: EMP read indepedently Imaging Results Comments: Right hip x-ray obtained on 02/16/2022 which shows a dislocation of the right hip No visualized fractures or dislocations - Current Medications Current Medications: Current Medications Generic Name Dose Route Start Last Admin Trade Name Graham PRN Reason Stop Dose Admin Acetaminophen 1,000 mg 02/16/22 09:30 02/16/22 09:12 Acetaminophen 500 Mg Tablet PO 1,000 mg Q6H AKI Administration Alcohol 1 amp 02/13/22 21:00 02/16/22 09:10 Ethyl Alcohol 62% Swab Ampule SETH 1 amp BID AKI Administration Aspirin 81 mg 02/14/22 09:00 02/16/22 09:13 Aspirin Ec 81 Mg Tablet PO 81 mg BID AKI Administration Bupropion HCl 300 mg 02/13/22 15:00 02/16/22 09:11 Bupropion Sr 150 Mg Tablet PO 300 mg DAILY AKI Administration Celecoxib 200 mg 02/13/22 21:00 02/16/22 09:13 Celecoxib 100 Mg Capsule PO 200 mg BID AKI Administration Docusate Sodium 100 mg 02/13/22 11:52 02/15/22 09:09 Docusate Sodium 100 Mg Capsule PO 100 mg BID PRN Administration Constipation Fentanyl 12.5 mcg 02/14/22 16:30 02/16/22 10:44 Fentanyl 100 Mcg/2 Ml Vial IVP 12.5 mcg Q3HR PRN Administration Severe Pain Propranolol HCl 80 mg 02/13/22 15:00 02/16/22 09:13 Propranolol 40 Mg Tablet PO 80 mg DAILY AKI Administration Simethicone 80 mg 02/15/22 14:46 02/16/22 09:19 Simethicone Chew 80 Mg Tablet PO 80 mg Q6HR PRN Administration GAS Sodium Chloride 10 ml 02/13/22 17:00 02/16/22 09:14 Sodium Chloride Flush 0.9% 10 Ml Syringe IVP 10 ml 0100,0900,1700 AKI Administration Sodium Chloride 10 ml 02/13/22 11:52 02/16/22 10:44 Sodium Chloride Flush 0.9% 10 Ml Syringe IVP 10 ml PRN PRN Administration NEEDED PER PROVIDER ORDERS Tramadol HCl 50 mg 02/14/22 10:00 02/16/22 09:13 Tramadol 50 Mg Tablet PO 50 mg Q6HR AKI Administration - Physical Exam Comments/Other: Dressing dry and intact, no drainage, no hematoma, no sanguineous discharge Neurovascularly intact to right lower extremity including the femoral and sciatic nerves Knee flexion to approximately 20 degrees in the abduction pillow Right foot remains with slight internal rotation REEXAMINATION: Right leg is shortened and externally rotated Marked pain with any movement of right lower extremity ABX Reporting Has patient been on IV antibiotics over the past 48 hours?: No Impression/Plan - Problem List Problem List: 66 year old female is post operative day 3 from a right total hip arthroplasty with complication of dislocation on post operative day 1 and day 3. She underwent closed reduction of right hip in the operating room on post operative day 1. Prior to dislocation today, her pain was moderately controlled, now she has marked pain with all movement and at rest. She will undergo closed reduction in the operating room today. Dr. Nunez was called after initial evaluation of patient by nurse. Reportedly, the head of the bed was being lowered in preparation of toileting the patient when the patient had a sharp increase in pain. Orthopedic surgeon attended the bedside to find the right leg shortened and externally rotated. X- rays of the right hip were obtained and show dislocation of the right hip. Plan for closed reduction in the operating room today. Plan: - DVT prophylaxis: Aspirin 81 mg twice daily, SCDs - Diet: NPO for planned closed reduction, regular diet after procedure - Antibiotics: none - Weight bearing: none weight bearing - Pain: celebrex BID, acetaminophen q6hrs, oxycodone 10 mg q6hrs, IVP Fentanyl 12.5 mg q3hrs PRN - Mobility restrictions: NO external rotation, active abduction or adduction of the right lower extremity. If up to chair, multi person assist required - Physical therapy and occupational therapy following - Awaiting brace for immobilization of right hip, expected to arrive Friday02/18/2022 - Appreciate input of hospitalist physician - Restless leg syndrome: Gabapentin 300 mg TID home medication, increased evening dose to 600mg given persistent night pain and leg cramping
[2022-02-16] MEDS ORDERED: KETAMINE 500 MG/10 ML VIAL ONE (11:19)
[2022-02-16] MEDS ORDERED: PROPOFOL 200 MG/20 ML VIAL IVP ONE (11:19)
[2022-02-16] MEDS ORDERED: BUPIVACAINE 0.5% PF 10 ML VIAL ONE (11:20)
[2022-02-16] MEDS ORDERED: fentaNYL 100 MCG/2 ML VIAL ONE ×2 (11:20→12:41)
[2022-02-16] MEDS ORDERED: DEXAMETHASONE 4 MG/ML VIAL ONE (11:20)
[2022-02-16] MEDS ORDERED: ePHEDrine 50 MG/ML VIAL IVP PRN (11:45)
[2022-02-16] MEDS ORDERED: NALOXONE 0.4 MG/ML VIAL IVP PRN (11:45)
[2022-02-16] MEDS ORDERED: ATROPINE ABBOJECT 1 MG/10 ML SYRINGE IVP PRN (11:45)
[2022-02-16] MEDS ORDERED: MORPHINE 2 MG/ML CARPUJECT IVP PRN (11:45)
[2022-02-16] MEDS ORDERED: METOCLOPRAMIDE 10 MG/2 ML VIAL IVP PRN (11:45)
[2022-02-16] MEDS ORDERED: HYDROmorphone 0.5 MG/0.5 ML SYRINGE IVP PRN (11:45)
[2022-02-16] MEDS ORDERED: ONDANSETRON 4 MG/2 ML VIAL IVP PRN (11:45)
[2022-02-16] MEDS ORDERED: fentaNYL 100 MCG/2 ML VIAL IVP PRN (11:45)
--- NOTE | 2022-02-16 11:45 | ANESTHESIA ---
Pre-Anesthesia VS, & Labs - Diagnosis hip dislocation - Procedure closed reduction for right hip dislocation Vital Signs: Temp Pulse Resp BP Pulse Ox O2 Flow Rate 36.5 C 62 18 156/90 H 97 2 02/16/22 07:43 02/16/22 07:43 02/16/22 07:43 02/16/22 07:43 02/16/22 07:43 02/15/22 08:20 Height: 5 ft 8 in Weight (kg): 76 kg Body Mass Index: 25.4 BMI Classification: Overweight - NPO >8 hours - Is Patient ?: No - Lab Results Current Lab Results: Laboratory Tests 02/13/22 07:13: POC Whole Bld Glucose 107 H Home Medications and Allergies Home Medications: Ambulatory Orders Acetaminophen [Tylenol] 650 mg PO Q6H PRN 02/07/22 Bupropion HCl [Wellbutrin Xl] 300 mg PO DAILY 02/07/22 Calcium Carbonate [Calcium] 600 mg PO DAILY 02/07/22 Cholecalciferol [Vitamin D3] 50 mcg PO DAILY 02/07/22 Gabapentin [Neurontin] 300 mg PO DAILY 02/07/22 Ibuprofen [Motrin] 600 mg PO Q6H PRN 02/07/22 Lisinopril [Zestril] 40 mg PO DAILY 02/07/22 Omeprazole 20 mg PO PRN PRN 02/07/22 Oxycodone HCl/Acetaminophen [Oxycodone-Acetaminophen 10-300] 1 each PO Q6H PRN 02/07/22 Propranolol HCl [Propranolol HCl ER] 120 mg PO DAILY 02/15/22 Active Medications Acetaminophen (Acetaminophen 500 Mg Tablet) 1,000 mg PO Q6H [facility] Last Admin: 02/16/22 09:12 Dose: 1,000 mg Albuterol/Ipratropium (Ipratropium/Albuterol 3 Ml Neb) 3 ml INH Q4HR PRN PRN Reason: Wheezing Alcohol (Ethyl Alcohol 62% Swab Ampule) 1 amp SETH BID [facility] Last Admin: 02/16/22 09:10 Dose: 1 amp Aspirin (Aspirin Ec 81 Mg Tablet) 81 mg PO BID [facility] Last Admin: 02/16/22 09:13 Dose: 81 mg Bupropion HCl (Bupropion Sr 150 Mg Tablet) 300 mg PO DAILY [facility] Last Admin: 02/16/22 09:11 Dose: 300 mg Celecoxib (Celecoxib 100 Mg Capsule) 200 mg PO BID [facility] Last Admin: 02/16/22 09:13 Dose: 200 mg Docusate Sodium (Docusate Sodium 100 Mg Capsule) 100 mg PO BID PRN PRN Reason: Constipation Last Admin: 02/15/22 09:09 Dose: 100 mg Fentanyl (Fentanyl 100 Mcg/2 Ml Vial) 12.5 mcg IVP Q3HR PRN PRN Reason: Severe Pain Last Admin: 02/16/22 10:44 Dose: 12.5 mcg Gabapentin (Gabapentin 300 Mg Capsule) 300 mg PO DAILY [facility] Gabapentin (Gabapentin 300 Mg Capsule) 300 mg PO DAILY [facility] Gabapentin (Gabapentin 300 Mg Capsule) 600 mg PO QPM [facility] Ondansetron HCl (Ondansetron 4 Mg/2 Ml Vial) 4 mg IVP Q6HR PRN PRN Reason: Nausea / Vomiting Oxycodone HCl (Oxycodone 5 Mg Tablet) 10 mg PO Q6HR [facility] Propranolol HCl (Propranolol 40 Mg Tablet) 80 mg PO DAILY [facility] Last Admin: 02/16/22 09:13 Dose: 80 mg Simethicone (Simethicone Chew 80 Mg Tablet) 80 mg PO Q6HR PRN PRN Reason: GAS Last Admin: 02/16/22 09:19 Dose: 80 mg Sodium Chloride (Sodium Chloride Flush 0.9% 10 Ml Syringe) 10 ml IVP 0100,0900,1700 [facility] Last Admin: 02/16/22 09:14 Dose: 10 ml Sodium Chloride (Sodium Chloride Flush 0.9% 10 Ml Syringe) 10 ml IVP PRN PRN PRN Reason: NEEDED PER PROVIDER ORDERS Last Admin: 02/16/22 10:44 Dose: 10 ml Tramadol HCl (Tramadol 50 Mg Tablet) 50 mg PO Q6HR [facility] Last Admin: 02/16/22 09:13 Dose: 50 mg Acetaminophen [Tylenol] 650 mg PO Q6H PRN 02/07/22 Bupropion HCl [Wellbutrin Xl] 300 mg PO DAILY 02/07/22 Calcium Carbonate [Calcium] 600 mg PO DAILY 02/07/22 Cholecalciferol [Vitamin D3] 50 mcg PO DAILY 02/07/22 Gabapentin [Neurontin] 300 mg PO DAILY 02/07/22 Ibuprofen [Motrin] 600 mg PO Q6H PRN 02/07/22 Lisinopril [Zestril] 40 mg PO DAILY 02/07/22 Omeprazole 20 mg PO PRN PRN 02/07/22 Oxycodone HCl/Acetaminophen [Oxycodone-Acetaminophen 10-300] 1 each PO Q6H PRN 02/07/22 Propranolol HCl [Propranolol HCl ER] 120 mg PO DAILY 02/15/22 Allergies/Adverse Reactions: Allergies Allergy/AdvReac Type Severity Reaction Status Date / Time Penicillins Allergy Hives Verified 02/07/22 14:24 Anes History & Medical History - Anesthetic History Anesthesia Complications: reports: No previous complications - Medical History Cardiovascular: reports: Hypertension Pulmonary: reports: None, Other Gastrointestinal: reports: None Urinary: reports: Incontinence Musculoskeletal: reports: Osteoarthritis, Chronic back pain Endocrine/Autoimmune: reports: None Skin: reports: Eczema Smoking Status: Former smoker Psychosocial: reports: No issues indicated History of Cancer?: No - Surgical History Orthopedic: reports: Hip replacement, Other Exam General: Alert, Oriented x3 Dental: Loose/Frag, Poor dentition Mouth Opening: Greater than 4 Fingerbreadths Neck Mobility: Limited Mallampati classification: III Thyromental Distance: greater than 6 cm Respiratory: Lungs clear Cardiovascular: Regular rate Plan Anesthesia Type: Total IV, Fascia Iliaca Block Consent for Procedure(s) Verified and Reviewed: Yes Code Status: Attempt Resuscitation ASA classification: 2-Mild systemic disease Is this case an emergency?: No
[2022-02-16] MEDS: oxyCODONE 5 MG TABLET PO SCH ×2 (11:46→18:42)
[2022-02-16] MEDS ORDERED: LACTATED RINGERS 1,000 ML IV SCH (12:00)
[2022-02-16] MEDS ORDERED: LACTATED RINGERS 1,000 ML IV ONE ×2 (12:48→13:30)
--- NOTE | 2022-02-16 12:54 | OPERATIVE REPORT ---
Operative Report - General Admit Date: 02/15/22 Procedure Date: 02/16/22 Planned Procedure: Closed reduction right hip arthroplasty dislocation Pre-Op Diagnosis: Recurrent dislocation right hip arthroplasty, postop Procedure Performed: Closed reduction right hip arthroplasty Post Op Diagnosis: Same as preoperative diagnosis - Procedure Note Primary Surgeon: Ricci Nunez MD Secondary Surgeon: Jessy JONES Anesthesia Provider: Lakisha JONES Anesthesia Technique: Moderate sedation Estimated Blood Loss (mL): 0 Indications: This is a 66-year-old woman with end-stage osteoarthritis, osteoporosis who underwent right total hip arthroplasty on 02/13/2022. The day following surgery 02/14/2022 she dislocated her right hip. Her initial postop films in recovery room showed no sign of dislocation to her right hip. She does have restless leg syndrome which requires her to get up and move her leg around on a regular basis prior to surgery. After the dislocation was reduced on her right hip, 10/27/2021, she was placed in abduction pillow. I wanted to place her in a hip abduction brace but there is none available on the [place] and the soonest that we could obtain 1 is 02/18/2022. The goal of the brace is to prevent redislocation. There is also no physical therapy on the weekends at the hospital.This morning after I saw her the nurses were lowering the head of the bed in preparation of turning her to clean her bottom. While lowering her head, according to the nurses the patient had sudden increase in pain. I was still in the hospital, came to her bedside noted change in alignment to her right leg consistent with dislocation and confirmed by a portable x-ray of the right hip. She was consented for closed reduction of the right hip, informed consent obtained from patient. Findings: The hip arthroplasty was dislocated anteriorly. The hip was stable in abduction, at least 20 degrees. Further abduction, right leg was unstable and wanted to be dislocate. I can flex, extend and rotate the leg with the hip in abduction. Complications: none - Other Other Information/Narrative: Patient was brought to the operating room, transferred from her bed to operating room table. After satisfactory anesthesia was obtained, a timeout procedure was performed by the entire operating staff and all were in agreement. Of the hip was reduced with the patient in a supine position. Traction was applied to the right leg, internal rotation and slight abduction. This reduced the hip, confirmed by C arm image intensifier. I can take the hip through range of motion with the hip abducted including flexion, extension and rotation and the hip was stable. As soon as the leg was brought closer to the midline, the hip became unstable and wanted to dislocate. I suspect this is due to an impingement. She was placed in a modified abduction pillow to keep the legs, particular right leg in an abducted position until we can obtain the hip spica brace. Patient tolerated the procedure well.
--- NOTE | 2022-02-16 13:38 | XRAY Report ---
PROCEDURE: Pelvis 1 View INDICATIONS: Post reduction film TECHNIQUE: 1 view(s) of the pelvis acquired. COMPARISON: Plain films dated 02/16/2022 FINDINGS: Bones: No fractures or dislocations. Relocation of right hip arthroplasty. No suspicious bony lesio ns. Soft tissues: Visualized bowel gas pattern is normal. No suspicious soft tissue calcifications. IMPRESSION: Relocation of right hip arthroplasty. Reviewed by: Satish Mccallum MD on 02/16/2022 12:37 PM [place] Approved by: Satish Mccallum MD on 02/16/2022 12:37 PM [facility] Station ID: [id number]
--- NOTE | 2022-02-16 13:57 | ANESTHESIA POST OP EVALUATION ---
Anesthesia Post Eval - Post Anesthesia Eval Vitals: Last Vital Signs Temp 36.8 C 02/16/22 13:30 Pulse 60 02/16/22 13:45 Resp 17 02/16/22 13:45 BP 164/81 H 02/16/22 13:45 Pulse Ox 97 02/16/22 13:45 O2 Flow Rate 2 02/15/22 08:20 CV Function Including HR & BP: Stable Pain Control: Satisfactory Nausea & Vomiting: Negative Mental Status: Baseline Respiratory Status: Airway Patent Hydration Status: Satisfactory Anesthesia Complications: None
[2022-02-17] MEDS: oxyCODONE 5 MG TABLET PO SCH ×5 (00:26→23:45)
[2022-02-17] MEDS: traMADol 50 MG TABLET PO SCH ×5 (00:26→23:45)
[2022-02-17] MEDS: SODIUM CHLORIDE FLUSH 0.9% 10 ML SYRINGE IVP SCH ×3 (00:35→16:54)
[2022-02-17] MEDS: ACETAMINOPHEN 500 MG TABLET PO SCH ×2 (03:13→03:23)
[2022-02-17] MEDS: GABAPENTIN 300 MG CAPSULE PO SCH ×4 (06:01→21:29)
[2022-02-17] MEDS: ethyl alcohoL 62% SWAB AMPULE NAS SCH ×2 (08:44→21:28)
[2022-02-17] MEDS: buPROPion SR 150 MG TABLET PO SCH (08:45)
[2022-02-17] MEDS: CELECOXIB 100 MG CAPSULE PO SCH ×2 (08:45→21:28)
[2022-02-17] MEDS: ASPIRIN EC 81 MG TABLET PO SCH ×2 (08:45→21:28)
[2022-02-17] MEDS: PROPRANOLOL 40 MG TABLET PO SCH (08:46)
[2022-02-17] MEDS: lisinopriL 20 MG TABLET PO SCH (08:46)
[2022-02-17] MEDS: SIMETHICONE CHEW 80 MG TABLET PO PRN (08:51)
[2022-02-17] MEDS ORDERED: TEMAZEPAM 15 MG CAPSULE PO PRN (10:07)
--- NOTE | 2022-02-17 10:16 | PROVIDER PROGRESS NOTE ---
Subjective - General Admit Date: 02/15/22 Procedure Date: 02/16/22 Post Op Days: 1 Procedure Performed: Right total hip arthroplasty - Review of Systems Wound/Incisions: positive: Dressing dry and intact General: positive: No symptoms. negative: Fever, Weakness, Chills Gastrointestinal: positive: No symptoms. negative: Nausea, Vomiting - Other Other Information/Narrative: Alert and oriented, laying in bed Abduction pillow in place John Ayala present Tolerating oral intake without nausea or emesis, some flatus yesterday after closed reduction, improved today Pain is controlled Reporting improved sleep last night Reporting numbness on right thigh after nerve block yesterday Reports worsening of restless leg syndrome with high doses of acetaminophen at home, took 500 mg last night instead of 1000mg scheduled Objective - Patient Data Vital Signs: Vital Signs x48h Temp Pulse Resp BP Pulse Ox 02/17/22 08:14 36.8 C 75 16 150/79 H 92 02/17/22 06:24 36.7 C 65 16 177/110 H 94 02/17/22 03:00 36.6 C 59 L 18 166/74 H 95 Weight: Weight 02/15/22 02/16/22 02/17/22 23:59 23:59 23:59 Weight (kg) 76 kg Intake & Output: Intake and Output Totals x24h 02/15/22 02/16/22 02/17/22 23:59 23:59 23:59 Intake Total 980 1460 580 Output Total 1450 2225 550 Balance -470 -765 30 - Imaging Results Radiology Imaging: positive: Final report received, EMP read indepedently - Current Medications Current Medications: Current Medications Generic Name Dose Route Start Last Admin Trade Name Graham PRN Reason Stop Dose Admin Acetaminophen 1,000 mg 02/16/22 09:30 02/17/22 03:23 Acetaminophen 500 Mg Tablet PO 500 mg Q6H AKI Administration Alcohol 1 amp 02/13/22 21:00 02/17/22 08:44 Ethyl Alcohol 62% Swab Ampule SETH 1 amp BID AKI Administration Aspirin 81 mg 02/14/22 09:00 02/17/22 08:45 Aspirin Ec 81 Mg Tablet PO 81 mg BID AKI Administration Bupropion HCl 300 mg 02/13/22 15:00 02/17/22 08:45 Bupropion Sr 150 Mg Tablet PO 300 mg DAILY AKI Administration Celecoxib 200 mg 02/13/22 21:00 02/17/22 08:45 Celecoxib 100 Mg Capsule PO 200 mg BID AKI Administration Docusate Sodium 100 mg 02/13/22 11:52 02/15/22 09:09 Docusate Sodium 100 Mg Capsule PO 100 mg BID PRN Administration Constipation Fentanyl 12.5 mcg 02/14/22 16:30 02/16/22 14:30 Fentanyl 100 Mcg/2 Ml Vial IVP 12.5 mcg Q3HR PRN Administration Severe Pain Gabapentin 300 mg 02/17/22 06:00 02/17/22 08:47 Gabapentin 300 Mg Capsule PO 300 mg DAILY AKI Administration Gabapentin 600 mg 02/16/22 22:00 02/16/22 21:27 Gabapentin 300 Mg Capsule PO 600 mg QPM AKI Administration Lisinopril 40 mg 02/17/22 09:00 02/17/22 08:46 Lisinopril 20 Mg Tablet PO 40 mg DAILY AKI Administration Oxycodone HCl 10 mg 02/16/22 12:00 02/17/22 06:00 Oxycodone 5 Mg Tablet PO 10 mg Q6HR AKI Administration Propranolol HCl 80 mg 02/13/22 15:00 02/17/22 08:46 Propranolol 40 Mg Tablet PO 80 mg DAILY AKI Administration Simethicone 80 mg 02/15/22 14:46 02/17/22 08:51 Simethicone Chew 80 Mg Tablet PO 80 mg Q6HR PRN Administration GAS Sodium Chloride 10 ml 02/13/22 17:00 02/17/22 08:47 Sodium Chloride Flush 0.9% 10 Ml Syringe IVP 10 ml 0100,0900,1700 AKI Administration Sodium Chloride 10 ml 02/13/22 11:52 02/16/22 10:44 Sodium Chloride Flush 0.9% 10 Ml Syringe IVP 10 ml PRN PRN Administration NEEDED PER PROVIDER ORDERS Tramadol HCl 50 mg 02/14/22 10:00 02/17/22 06:00 Tramadol 50 Mg Tablet PO 50 mg Q6HR AKI Administration - Physical Exam Comments/Other: Well developed, well nourished, 66 year old female More alert than yesterday Dressing is dry and intact without hematoma formation Abduction pillow in place Limbs equal in length Neurovascularly intact to right lower extremity, femoral and sciatic nerve intact Impression/Plan - Problem List Problem List: 66 year old female is post operative day 4 from a right total hip arthroplasty complicated by 2 dislocations on 02/14 and 02/16/2022. She has underwent 2 closed reductions after right hip dislocation. Her pain control has improved today and she is tolerated oral intake. Overall she appears improved today. Plan: - DVT prophylaxis: Aspirin 81 mg twice daily, SCDs - Diet: soft diet, no IV fluids - Antibiotics: none - Weight bearing: Non weight bearing - Pain: Celebrex BID, acetaminophen 1000 mg qhrs PRN, oxycodone 10 mg qhrs scheduled, tramadol 50 mg scheduled, IVP fentanyl 12.5 mg q3hrs PRN - Mobility restrictions: non external rotation, active abduction, no adduction to right lower extremity - Disposition: pending physical therapy evaluation, likely will need a rehabilitation or [facility]p facility - Follow up with orthopedic office within 2 weeks of discharge - Physical therapy and occupational therapy following - Awaiting immobilization brace for right hip, expected to arrive tomorrow - Appreciate input of hospitalist physician - Gabapentin for restless leg syndrome, increased evening dose to 600 mg with good effect - Lisinopril for chronic hypertension - Contreras catheter given weight bearing status and mobility restrictions - Restoril 7.5 mg in the evening to aid sleep
[2022-02-17] MEDS ORDERED: lisinopriL 5 MG TABLET PO SCH (11:00)
[2022-02-17] MEDS ORDERED: GABAPENTIN 300 MG CAPSULE PO SCH (14:00)
[2022-02-17] MEDS: fentaNYL 100 MCG/2 ML VIAL IVP PRN (16:54)
[2022-02-18] MEDS: ACETAMINOPHEN 500 MG TABLET PO PRN (02:14)
[2022-02-18] MEDS: SODIUM CHLORIDE FLUSH 0.9% 10 ML SYRINGE IVP SCH ×4 (02:15→23:39)
[2022-02-18] MEDS: CYCLOBENZAPRINE 10 MG TABLET PO PRN ×3 (02:58→21:05)
[2022-02-18] MEDS: oxyCODONE 5 MG TABLET PO SCH ×4 (06:04→23:38)
[2022-02-18] MEDS: ASPIRIN EC 81 MG TABLET PO SCH ×2 (08:43→21:05)
[2022-02-18] MEDS: PROPRANOLOL 40 MG TABLET PO SCH (08:43)
[2022-02-18] MEDS: lisinopriL 20 MG TABLET PO SCH (08:44)
[2022-02-18] MEDS: CELECOXIB 100 MG CAPSULE PO SCH ×2 (08:44→21:05)
[2022-02-18] MEDS: buPROPion SR 150 MG TABLET PO SCH (08:44)
[2022-02-18] MEDS: ethyl alcohoL 62% SWAB AMPULE NAS SCH ×2 (08:44→21:05)
[2022-02-18] MEDS: GABAPENTIN 300 MG CAPSULE PO SCH ×3 (08:44→21:05)
--- NOTE | 2022-02-18 14:23 | XRAY Report ---
PROCEDURE: OR C-Arm Procedure INDICATIONS: Dislocation Right Hip FLUORO TIME: 0.27 TECHNIQUE: Single intraoperative fluoroscopic spot COMPARISON: None. FINDINGS: Single low-resolution intraoperative fluoroscopic spot films shows complete disarticulation of a righ t total hip arthroplasty. IMPRESSION: Fluoroscopic guidance Reviewed by: Bennie Mccormick MD on 02/18/2022 1:21 PM [place] Approved by: Bennie Mccormick MD on 02/18/2022 1:21 PM [place] Station ID: [id number]
--- NOTE | 2022-02-18 14:35 | PROVIDER PROGRESS NOTE ---
Subjective - General Admit Date: 02/15/22 Procedure Date: 02/16/22 Post Op Days: 2 Procedure Performed: Right total hip arthroplasty, Close reduction dislocated right total hip - Review of Systems Wound/Incisions: positive: Healing well, Dressing dry and intact General: positive: No symptoms. negative: Fever, Weakness, Chills Gastrointestinal: positive: No symptoms. negative: Nausea, Vomiting Psychiatric: positive: No symptoms - Other Other Information/Narrative: The patient is doing better since her last procedure. Her pain is decreasing, her pain is under better control, she can move her leg On the right side. There was no physical therapy this weekend so she has been mostly at bedrest, especially, since we do not have the hip spica brace available. A Contreras catheter was inserted because of hip dislocation.She denies chest pain, shortness of breath, nausea or vomiting. Objective - Patient Data Vital Signs: Vital Signs x48h Temp Pulse Resp BP Pulse Ox 02/18/22 11:29 36.6 C 59 L 20 126/75 96 02/18/22 08:42 113/65 02/18/22 07:21 36.4 C L 71 17 148/86 H 96 Weight: Weight 02/16/22 02/17/22 02/18/22 23:59 23:59 23:59 Weight (kg) 76 kg Intake & Output: Intake and Output Totals x24h 02/16/22 02/17/22 02/18/22 23:59 23:59 23:59 Intake Total 1460 2010 1190 Output Total 2225 1950 3000 Balance -765 60 -1810 - Current Medications Current Medications: Current Medications Generic Name Dose Route Start Last Admin Trade Name Freq PRN Reason Stop Dose Admin Acetaminophen 1,000 mg 02/17/22 10:19 02/18/22 02:14 Acetaminophen 500 Mg Tablet PO 500 mg Q6H PRN Administration PAIN 1-4 Alcohol 1 amp 02/13/22 21:00 02/18/22 08:44 Ethyl Alcohol 62% Swab Ampule SETH 1 amp BID AKI Administration Aspirin 81 mg 02/14/22 09:00 02/18/22 08:43 Aspirin Ec 81 Mg Tablet PO 81 mg BID AKI Administration Bupropion HCl 300 mg 02/13/22 15:00 02/18/22 08:44 Bupropion Sr 150 Mg Tablet PO 300 mg DAILY AKI Administration Celecoxib 200 mg 02/13/22 21:00 02/18/22 08:44 Celecoxib 100 Mg Capsule PO 200 mg BID AKI Administration Cyclobenzaprine HCl 10 mg 02/18/22 02:41 02/18/22 11:20 Cyclobenzaprine 10 Mg Tablet PO 10 mg TID PRN Administration Spasms Docusate Sodium 100 mg 02/13/22 11:52 02/15/22 09:09 Docusate Sodium 100 Mg Capsule PO 100 mg BID PRN Administration Constipation Fentanyl 12.5 mcg 02/14/22 16:30 02/17/22 16:54 Fentanyl 100 Mcg/2 Ml Vial IVP 12.5 mcg Q3HR PRN Administration Severe Pain Gabapentin 300 mg 02/17/22 06:00 02/18/22 08:44 Gabapentin 300 Mg Capsule PO 300 mg DAILY AKI Administration Gabapentin 600 mg 02/16/22 22:00 02/17/22 21:29 Gabapentin 300 Mg Capsule PO 600 mg QPM AKI Administration Gabapentin 300 mg 02/17/22 14:00 02/18/22 14:08 Gabapentin 300 Mg Capsule PO 300 mg 1400 AKI Administration Lisinopril 40 mg 02/17/22 09:00 02/18/22 08:44 Lisinopril 20 Mg Tablet PO 40 mg DAILY AKI Administration Oxycodone HCl 10 mg 02/16/22 12:00 02/18/22 12:37 Oxycodone 5 Mg Tablet PO 10 mg Q6HR AKI Administration Propranolol HCl 80 mg 02/13/22 15:00 02/18/22 08:43 Propranolol 40 Mg Tablet PO 80 mg DAILY AKI Administration Simethicone 80 mg 02/15/22 14:46 02/17/22 08:51 Simethicone Chew 80 Mg Tablet PO 80 mg Q6HR PRN Administration GAS Sodium Chloride 10 ml 02/13/22 17:00 02/18/22 08:45 Sodium Chloride Flush 0.9% 10 Ml Syringe IVP 10 ml 0100,0900,1700 AKI Administration Sodium Chloride 10 ml 02/13/22 11:52 02/16/22 10:44 Sodium Chloride Flush 0.9% 10 Ml Syringe IVP 10 ml PRN PRN Administration NEEDED PER PROVIDER ORDERS - Physical Exam Wound/Incisions: positive: Healing well Skin: positive: Color nml Neurologic/Psychiatric: positive: Oriented x3 Comments/Other: She is alert, oriented, appears not to be in any acute distress. Her incision appears to be clean and dry, dressing intact. Swelling about the right hip is decreasing. Neurovascular is completely intact right. There is no clinical deformity to the right leg. 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 This is a shelf brace as best we can do and it does seem to fit reasonably well. The hip spica brace was applied. She was placed in 20 degrees of abduction And flexion from 0 to 70 degrees right hip. The knee was held in neutral rotation. With physical therapy present, the patient was transferred to sitting position with brace. She was able to stand with her walker. She has a fair amount of generalized weakness but did good for her first episode in the brace. There is no clinical deformity to her right leg. She was returned back to bed, No clin ical deformity. She did have some hip discomfort with moving about to a standing position but tolerated this well. The plan is to progress her each day with gait training. She can bear as much weight on the right leg as feels comfortable. She can be sitting, working on motion to right knee and can do quadricep strengthening while sitting. She requires maximum assist of the physical therapist at this time. She will need to use the brace on a full-time basis. The plan is for [facility] facility until she is able to be safely discharged to home; This would require her to be fully ambulatory with walker in the brace.The fitting of the brace was discussed with nursing staff and physical therapy. The Contreras catheter will be removed tomorrow when she is able to hopefully get up to bedside commode
[2022-02-18] MEDS: fentaNYL 100 MCG/2 ML VIAL IVP PRN (15:31)
[2022-02-19] MEDS: oxyCODONE 5 MG TABLET PO SCH ×2 (05:26→12:11)
[2022-02-19] MEDS: CYCLOBENZAPRINE 10 MG TABLET PO PRN ×2 (05:35→17:05)
[2022-02-19] MEDS: ASPIRIN EC 81 MG TABLET PO SCH ×2 (09:06→20:56)
[2022-02-19] MEDS: CELECOXIB 100 MG CAPSULE PO SCH ×2 (09:06→20:55)
[2022-02-19] MEDS: PROPRANOLOL 40 MG TABLET PO SCH (09:06)
[2022-02-19] MEDS: ACETAMINOPHEN 500 MG TABLET PO PRN ×2 (09:06→17:05)
[2022-02-19] MEDS: GABAPENTIN 300 MG CAPSULE PO SCH ×3 (09:06→20:56)
[2022-02-19] MEDS: buPROPion SR 150 MG TABLET PO SCH (09:07)
[2022-02-19] MEDS: ethyl alcohoL 62% SWAB AMPULE NAS SCH ×2 (09:07→20:56)
[2022-02-19] MEDS: lisinopriL 20 MG TABLET PO SCH (09:08)
[2022-02-19] MEDS: SODIUM CHLORIDE FLUSH 0.9% 10 ML SYRINGE IVP SCH ×2 (09:08→17:05)
--- NOTE | 2022-02-19 16:32 | PROVIDER PROGRESS NOTE ---
Subjective - General Admit Date: 02/15/22 Procedure Date: 02/16/22 Post Op Days: 3 Procedure Performed: Right total hip arthroplasty, Close reduction dislocated right total hip - Review of Systems Wound/Incisions: positive: Healing well General: positive: No symptoms. negative: Fever, Weakness, Chills Gastrointestinal: positive: No symptoms. negative: Nausea, Vomiting Psychiatric: positive: No symptoms - Other Other Information/Narrative: Pain to her right hip continues to improve. She is not comfortable in the brace with sleeping at night, hip spica brace that was applied yesterday. She is tolerating her diet, voiding. She made some gains today as physical therapy, walker and hip spica brace. She was able to get to the bedside commode and returned to bed. Objective - Patient Data Vital Signs: Vital Signs x48h Temp Pulse Resp BP Pulse Ox 02/19/22 15:39 36.6 C 65 16 122/70 98 02/19/22 11:22 36.8 C 63 16 106/63 94 Intake & Output: Intake and Output Totals x24h 02/17/22 02/18/22 02/19/22 23:59 23:59 23:59 Intake Total 2009 1758 1030 Output Total 1950 3575 2050 Balance 60 -1817 -1020 - Current Medications Current Medications: Current Medications Generic Name Dose Route Start Last Admin Trade Name Freq PRN Reason Stop Dose Admin Acetaminophen 1,000 mg 02/17/22 10:19 02/19/22 09:06 Acetaminophen 500 Mg Tablet PO 500 mg Q6H PRN Administration PAIN 1-4 Alcohol 1 amp 02/13/22 21:00 02/19/22 09:07 Ethyl Alcohol 62% Swab Ampule SETH 1 amp BID AKI Administration Aspirin 81 mg 02/14/22 09:00 02/19/22 09:06 Aspirin Ec 81 Mg Tablet PO 81 mg BID AKI Administration Bupropion HCl 300 mg 02/13/22 15:00 02/19/22 09:07 Bupropion Sr 150 Mg Tablet PO 300 mg DAILY AKI Administration Celecoxib 200 mg 02/13/22 21:00 02/19/22 09:06 Celecoxib 100 Mg Capsule PO 200 mg BID AKI Administration Cyclobenzaprine HCl 10 mg 02/18/22 02:41 02/19/22 05:35 Cyclobenzaprine 10 Mg Tablet PO 10 mg TID PRN Administration Spasms Docusate Sodium 100 mg 02/13/22 11:52 02/15/22 09:09 Docusate Sodium 100 Mg Capsule PO 100 mg BID PRN Administration Constipation Gabapentin 300 mg 02/17/22 06:00 02/19/22 09:06 Gabapentin 300 Mg Capsule PO 300 mg DAILY AKI Administration Gabapentin 600 mg 02/16/22 22:00 02/18/22 21:05 Gabapentin 300 Mg Capsule PO 600 mg QPM AKI Administration Gabapentin 300 mg 02/17/22 14:00 02/19/22 14:35 Gabapentin 300 Mg Capsule PO 300 mg 1400 AKI Administration Lisinopril 40 mg 02/17/22 09:00 02/19/22 09:08 Lisinopril 20 Mg Tablet PO 40 mg DAILY AKI Administration Propranolol HCl 80 mg 02/13/22 15:00 02/19/22 09:06 Propranolol 40 Mg Tablet PO 80 mg DAILY AKI Administration Simethicone 80 mg 02/15/22 14:46 02/17/22 08:51 Simethicone Chew 80 Mg Tablet PO 80 mg Q6HR PRN Administration GAS Sodium Chloride 10 ml 02/13/22 17:00 02/19/22 09:08 Sodium Chloride Flush 0.9% 10 Ml Syringe IVP 10 ml 0100,0900,1700 AKI Administration Sodium Chloride 10 ml 02/13/22 11:52 02/16/22 10:44 Sodium Chloride Flush 0.9% 10 Ml Syringe IVP 10 ml PRN PRN Administration NEEDED PER PROVIDER ORDERS - Physical Exam General Appearance: positive: No acute distress Neurologic/Psychiatric: positive: Oriented x3 Comments/Other: Brace seems to be fitting well. Her right leg is in good alignment, no clinical deformity. Neurovascular is intact right lower extremities. Incision healing well right hip, no infection. Impression/Plan - Problem List Problem List: Status post hip replacement right, dislocation closed left hip has noted And plan is ambulation with walker, hip spica abduction brace family services specialist is working on a penitentiary facility transfer as she will need penitentiary facility to help with gait training. Contreras catheter will be removed , pain medication to change oxycodone to prn
[2022-02-19] MEDS: oxyCODONE 5 MG TABLET PO PRN (20:24)
[2022-02-19] MEDS: TEMAZEPAM 15 MG CAPSULE PO PRN (23:33)
[2022-02-20] MEDS: CYCLOBENZAPRINE 10 MG TABLET PO PRN ×2 (00:59→18:38)
[2022-02-20] MEDS: fentaNYL 100 MCG/2 ML VIAL IVP PRN ×3 (01:35→18:34)
[2022-02-20] MEDS: SODIUM CHLORIDE FLUSH 0.9% 10 ML SYRINGE IVP SCH ×3 (01:39→16:54)
[2022-02-20] MEDS: oxyCODONE 5 MG TABLET PO PRN ×2 (05:07→13:02)
[2022-02-20] MEDS: CELECOXIB 100 MG CAPSULE PO SCH ×2 (09:08→21:59)
[2022-02-20] MEDS: ethyl alcohoL 62% SWAB AMPULE NAS SCH ×2 (09:08→21:59)
[2022-02-20] MEDS: PROPRANOLOL 40 MG TABLET PO SCH (09:09)
[2022-02-20] MEDS: buPROPion SR 150 MG TABLET PO SCH (09:09)
[2022-02-20] MEDS: ASPIRIN EC 81 MG TABLET PO SCH ×2 (09:09→21:59)
[2022-02-20] MEDS: lisinopriL 20 MG TABLET PO SCH (09:09)
[2022-02-20] MEDS: GABAPENTIN 300 MG CAPSULE PO SCH ×3 (09:09→21:59)
--- NOTE | 2022-02-20 13:25 | XRAY Report ---
PROCEDURE: Pelvis 1 View INDICATIONS: Possible dislocation, sharp change in pain TECHNIQUE: 1 view(s) of the pelvis acquired. COMPARISON: 02/14/2022, 02/16/2022 FINDINGS: Bones: Total right hip arthroplasty with no evidence of hardware failure or loosening. No dislocatio n. Irregularity of the right inferior pubic ramus is consistent with a subtle fracture. Relationships of the bony acetabular cup to the pelvis is unchanged. No fractures or dislocations. No suspicious bony lesions. Soft tissues: Visualized bowel gas pattern is normal. No suspicious soft tissue calcifications. IMPRESSION: Subtle fracture of the inferior right pubic ramus. Reviewed by: Riley Wagner MD on 02/20/2022 1:23 PM PST Approved by: Riley Wagner MD on 02/20/2022 1:23 PM PST Station ID: [id number]
--- NOTE | 2022-02-20 14:16 | PROVIDER PROGRESS NOTE ---
Subjective - General Admit Date: 02/15/22 Procedure Date: 02/16/22 Post Op Days: 4 Procedure Performed: Right total hip arthroplasty, Close reduction dislocated right total hip - Review of Systems Wound/Incisions: positive: Healing well General: positive: No symptoms. negative: Fever, Weakness, Chills Gastrointestinal: positive: No symptoms. negative: Nausea, Vomiting Psychiatric: positive: No symptoms - Other Other Information/Narrative: Alert and oriented, awake in bed She is reporting significant pain when weight bearing with physical therapy Pain improves with resting in bed She has good appetite, no nausea No chest pain, dyspnea, chills, fever, nausea or vomiting Objective - Patient Data Vital Signs: Vital Signs x48h Temp Pulse Resp BP Pulse Ox 02/20/22 11:35 36.6 C 62 18 110/73 97 02/20/22 07:29 36.7 C 75 17 139/67 H 96 Intake & Output: Intake and Output Totals x24h 02/18/22 02/19/22 02/20/22 23:59 23:59 23:59 Intake Total 1758 1330 870 Output Total 3575 2300 250 Balance -1817 -970 620 - Imaging Results Radiology Imaging: positive: EMP read indepedently - Current Medications Current Medications: Current Medications Generic Name Dose Route Start Last Admin Trade Name Freq PRN Reason Stop Dose Admin Acetaminophen 1,000 mg 02/17/22 10:19 02/19/22 17:05 Acetaminophen 500 Mg Tablet PO 500 mg Q6H PRN Administration PAIN 1-4 Alcohol 1 amp 02/13/22 21:00 02/20/22 09:08 Ethyl Alcohol 62% Swab Ampule SETH 1 amp BID AKI Administration Aspirin 81 mg 02/14/22 09:00 02/20/22 09:09 Aspirin Ec 81 Mg Tablet PO 81 mg BID AKI Administration Bupropion HCl 300 mg 02/13/22 15:00 02/20/22 09:09 Bupropion Sr 150 Mg Tablet PO 300 mg DAILY AKI Administration Celecoxib 200 mg 02/13/22 21:00 02/20/22 09:08 Celecoxib 100 Mg Capsule PO 200 mg BID AKI Administration Cyclobenzaprine HCl 10 mg 02/18/22 02:41 02/20/22 00:59 Cyclobenzaprine 10 Mg Tablet PO 10 mg TID PRN Administration Spasms Docusate Sodium 100 mg 02/13/22 11:52 02/15/22 09:09 Docusate Sodium 100 Mg Capsule PO 100 mg BID PRN Administration Constipation Fentanyl 12.5 mcg 02/19/22 12:44 02/20/22 11:25 Fentanyl 100 Mcg/2 Ml Vial IVP 12.5 mcg Q4HR PRN Administration Severe Pain 8-10 Gabapentin 300 mg 02/17/22 06:00 02/20/22 09:09 Gabapentin 300 Mg Capsule PO 300 mg DAILY AKI Administration Gabapentin 600 mg 02/16/22 22:00 02/19/22 20:56 Gabapentin 300 Mg Capsule PO 600 mg QPM AKI Administration Gabapentin 300 mg 02/17/22 14:00 02/20/22 13:01 Gabapentin 300 Mg Capsule PO 300 mg 1400 AKI Administration Lisinopril 40 mg 02/17/22 09:00 02/20/22 09:09 Lisinopril 20 Mg Tablet PO 40 mg DAILY AKI Administration Oxycodone HCl 10 mg 02/19/22 12:45 02/20/22 13:02 Oxycodone 5 Mg Tablet PO 10 mg Q8HR PRN Administration PAIN 5-7 Propranolol HCl 80 mg 02/13/22 15:00 02/20/22 09:09 Propranolol 40 Mg Tablet PO 80 mg DAILY AKI Administration Simethicone 80 mg 02/15/22 14:46 02/17/22 08:51 Simethicone Chew 80 Mg Tablet PO 80 mg Q6HR PRN Administration GAS Sodium Chloride 10 ml 02/13/22 17:00 02/20/22 09:09 Sodium Chloride Flush 0.9% 10 Ml Syringe IVP 10 ml 0100,0900,1700 AKI Administration Sodium Chloride 10 ml 02/13/22 11:52 02/16/22 10:44 Sodium Chloride Flush 0.9% 10 Ml Syringe IVP 10 ml PRN PRN Administration NEEDED PER PROVIDER ORDERS Temazepam 15 mg 02/19/22 12:45 02/19/22 23:33 Temazepam 15 Mg Capsule PO 15 mg QPM PRN Administration Insomnia - Physical Exam Wound/Incisions: positive: Healing well, Dressing dry and intact, No drainage. negative: Erythema General Appearance: positive: No acute distress, Alert Neurologic/Psychiatric: positive: Oriented x3, Mood/affect nml Comments/Other: Limbs are equal in length No external rotation Dressing dry and intact No acute distress Neurovascularly intact to right lower extremity Knee flexion and extension intact Impression/Plan - Problem List Problem List: 66-year-old female who is postoperative day 5 from a right total hip arth roplasty by Dr. Nunez at [facility]. Patient has an increase in pain today when ambulating with PT. The patient was seen by Dr. Nunez and myself today. Her disposition is pending placement for care home facility. I was called by the patient's nurse due to a sharp increase pain while ambulating with physical therapy today. An x-ray of the right hip was obtained which showed no evidence of dislocation. Her right leg is not shortened, and is in neutral alignment without external rotation. She was able to sit in bed upright without pain. She is tolerating hip flexion from 0 to 40 degrees in abduction brace in bed. Her pain decreases when resting in bed but increases when weightbearing. There was some changes to her pain medications yesterday, however it is unlikely that the sharp increase in pain is due to dislocation. For this reason, the hospitalist physician is consulting on pain management. Plan: -Weightbearing as tolerated with front wheeled walker and hip abduction brace -Brace to remain in place at all times, skin was marked with correct location of the brace -DVT prophylaxis aspirin 81 mg twice daily for 6 weeks -Pain management with Tylenol, i Celebrex, tramadol, oxycodone and IV fentanyl as needed. - Diet: Soft diet, no IV fluids -Antibiotics: None - Mobility restrictions: No external rotation, active abduction or adduction to right lower extremity. Brace to remain in place at all times -Disposition: Cannot attend [facility] due to co-pay, awaiting further placement from social work -Follow-up in orthopedic office within 2 weeks of discharge -Physical therapy and Occupational Therapy following -Appreciate input of hospitalist physician for ongoing pain management medical comorbidities -Continue gabapentin for restless leg syndrome, lisinopril for chronic hypertension and Restoril 15 mg for sleep
[2022-02-20] MEDS ORDERED: LIDOCAINE PATCH 5% TOP PRN (14:41)
--- NOTE | 2022-02-20 14:44 | CONSULTATION NOTE ---
Referring Provider Name of Referring Provider:: Ortho service Consult Date: 02/20/22 Chief Complaint - Chief Complaint Chief Complaint: Pain control after 3 ortho surgeries History of Present Illness - History of Present Illness HPI Comment/Other: This is a 66-year-old female with a history of arthritic pain who recently underwent orthopedic surgery which was successful. The following day she had dislocation of the prosthesis and had to return to the OR. The following day again with movement there was dislocation and needed to go to the OR a third time. She now wears a brace. Orthopedics has ordered for her to go to SNF for rehab and she will need to wear the brace 30/09 for 6 weeks. The question from Orthopedics is how to manage pain control. The patient has been on gabapentin and Tylenol with codeine for pain at home before this admission. History - Past Medical History Cardiovascular: reports: Hypertension Respiratory: reports: None, Other Endocrine/Autoimmune: reports: None GI: reports: None : reports: Incontinence HEENT: reports: Chronic vision loss Psych: reports: Depression, Anxiety, Panic attacks Musculoskeletal: reports: Osteoarthritis, Chronic back pain Derm: reports: Eczema MRSA Hx?: No - Past Surgical History Ortho: reports: Hip replacement - Family & Social History Living arrangement: At home Meds/Allgy - Home Medications Home Medications: Ambulatory Orders Medication Instructions Recorded Confirmed Acetaminophen [Tylenol] 650 mg PO Q6H PRN 02/07/22 02/07/22 Bupropion HCl [Wellbutrin Xl] 300 mg PO DAILY 02/07/22 02/13/22 Calcium Carbonate [Calcium] 600 mg PO DAILY 02/07/22 02/13/22 Cholecalciferol [Vitamin D3] 50 mcg PO DAILY 02/07/22 02/13/22 Gabapentin [Neurontin] 300 mg PO DAILY 02/07/22 02/13/22 Ibuprofen [Motrin] 600 mg PO Q6H PRN 02/07/22 02/13/22 Lisinopril [Zestril] 40 mg PO DAILY 02/07/22 02/13/22 Omeprazole 20 mg PO PRN PRN 02/07/22 02/13/22 Oxycodone HCl/Acetaminophen 1 each PO Q6H PRN 02/07/22 02/13/22 [Oxycodone-Acetaminophen 10-300] Propranolol HCl [Propranolol HCl 120 mg PO DAILY 02/15/22 02/15/22 ER] - Allergies Allergies/Adverse Reactions: Allergies Allergy/AdvReac Type Severity Reaction Status Date / Time Penicillins Allergy Hives Verified 02/07/22 14:24 Review of Systems - Constitutional Constitutional: reports: Weakness - Musculoskeletal Musculoskeletal: reports: Stiffness, Limited range of motion, Joint pain Exam - Vital Signs Vital Signs: Vital Signs x48h Temp Pulse Resp BP Pulse Ox 02/20/22 11:35 36.6 C 62 18 110/73 97 02/20/22 07:29 36.7 C 75 17 139/67 H 96 - Physical Exam General Appearance: positive: No acute distress, Alert Eyes Bilateral: positive: EOMI, Other (wearing glasses) ENT: positive: No signs of dehydration Neck: positive: Nml inspection Respiratory: positive: Breath sounds nml Cardiovascular: positive: Regular rate & rhythm, No murmur Abdomen: positive: Non-tender, Other (wearing a brace, which covers her abdomen) Skin: positive: Warm, Dry Extremities: positive: Other (brace over hip) Conclusion/Plan - Problem List (1) Hip joint painful on movement Conclusion/Plan: Because of needing to go to the OR repeatedly for several procedures now needing to wear a brace she needs to start PT rehab. She has pain with weightbearing. Currently she is getting gabapentin, Tylenol 1000 every 6 hours as needed, Tylenol with codeine as needed, aspirins twice daily scheduled, Motrin twice daily scheduled. Plan: Continue with the aspirin and NSAIDs scheduled Recommend stopping this very high-dose of prn Tylenol. Recommend combining her Tylenol and narcotic dosing to Acetaminophen/hydrocodone 300/5 mg every 4 hours as needed pain. Expect that she will need a dose of this 30 minutes before doing physical therapy. 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
[2022-02-20] MEDS: HYDROcod/ACETAM 10 MG/325 MG TABLET PO PRN ×2 (16:54→21:59)
[2022-02-20] MEDS: CALCIUM CARBONATE CHEW 500 MG TABLET PO SCH (21:59)
[2022-02-21] MEDS: TEMAZEPAM 15 MG CAPSULE PO PRN ×2 (00:06→23:37)
[2022-02-21] MEDS: SODIUM CHLORIDE FLUSH 0.9% 10 ML SYRINGE IVP SCH ×3 (01:30→17:36)
[2022-02-21] MEDS: ASPIRIN EC 81 MG TABLET PO SCH ×2 (08:18→21:39)
[2022-02-21] MEDS: buPROPion SR 150 MG TABLET PO SCH (08:18)
[2022-02-21] MEDS: CELECOXIB 100 MG CAPSULE PO SCH ×2 (08:18→21:39)
[2022-02-21] MEDS: CALCIUM CARBONATE CHEW 500 MG TABLET PO SCH ×2 (08:18→21:39)
[2022-02-21] MEDS: GABAPENTIN 300 MG CAPSULE PO SCH ×3 (08:19→21:38)
[2022-02-21] MEDS: CHOLECALCIFEROL 25 MCG TABLET PO SCH (08:19)
[2022-02-21] MEDS: PROPRANOLOL 40 MG TABLET PO SCH (08:19)
[2022-02-21] MEDS: ethyl alcohoL 62% SWAB AMPULE NAS SCH ×2 (08:19→21:39)
[2022-02-21] MEDS: lisinopriL 20 MG TABLET PO SCH (08:19)
[2022-02-21] MEDS: HYDROcod/ACETAM 10 MG/325 MG TABLET PO PRN ×4 (08:20→23:37)
[2022-02-21 09:38] LABS: BASOPHILS % (AUTO) 0.5 %; EOSINOPHILS # (AUTO) 0.4 10^3/uL (0.0-0.7); EOSINOPHILS % (AUTO) 4.7 %; HCT - HEMATOCRIT 31.8 % (37.0-47.0); HGB - HEMOGLOBIN 10.1 g/dL (12.0-16.0); LYMPHOCYTES # (AUTO) 1.4 10^3/uL (1.5-3.5); LYMPHOCYTES % (AUTO) 17.1 %; MEAN CORPUSCULAR HEMOGLOBIN 29.4 pg (27.0-31.0); MEAN CORPUSCULAR HGB CONC 31.8 g/dL (32.0-36.0); MEAN CORPUSCULAR VOLUME 92.4 fL (81.0-99.0); MEAN PLATELET VOLUME 9.4 fL (7.9-10.8); MONOCYTES # (AUTO) 0.6 10^3/uL (0.0-1.0); MONOCYTES % (AUTO) 7.2 %; NEUTROPHILS # (AUTO) 5.7 10^3/uL (1.5-6.6); NEUTROPHILS % (AUTO) 69.9 %; PLT - PLATELET COUNT 450 10^3/uL (130-450); RED BLOOD COUNT 3.44 10^6/uL (4.20-5.40); RED CELL DISTRIBUTION WIDTH 14.6 % (12.0-15.0); WHITE BLOOD COUNT 8.1 x10^3/uL (4.8-10.8)
[2022-02-21 09:52] LABS: ALBUMIN 2.7 g/dL (3.2-5.5); ALBUMIN/GLOBULIN RATIO 0.9 (1.0-2.2); BILIRUBIN,TOTAL 0.7 mg/dL (0.2-1.0); CALCIUM 8.7 mg/dL (8.5-10.3); CREATININE 0.8 mg/dL (0.4-1.0); TOTAL PROTEIN 5.8 g/dL (6.7-8.2)
[2022-02-21] MEDS: POTASSIUM CHLORIDE 10 MEQ CAPSULE PO SCH ×2 (11:56→21:39)
--- NOTE | 2022-02-21 13:48 | PROVIDER PROGRESS NOTE ---
Assessment/Plan - Problem List (1) Hip joint painful on movement Assessment/Plan: Because of needing to go to the OR repeatedly for several procedures, now needing to wear a brace, she needs to start PT rehab. She has pain with weightbearing. Her pain control improved after the changes in meds I madde yesterday. Plan: Continue with the aspirin and NSAIDs scheduled We stopped this very high-dose of prn Tylenol 1000mg q6h. We combined her Tylenol and narcotic dosing to Acetaminophen/hydrocodone 300/5 mg every 4 hours as needed pain. Expect that she will need a dose of this 30 minutes before doing physical therapy. 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 PT and OT wanted clarification today as to whether she could take a shower, and Ortho PA said No, she must get a sponge bath and shampoo in bed. SW is looking for a SNF toaccept this patient, for PT and OT rehab, for this patient. (3) HTN Impression: Blood pressure is well controlled on her present meds Plan: Check a set of routine labs, since none have been done this entire hospital stay or the last stay, when she was officially in Observation status getting the hip surgery. Continue present BP meds (4) Hypokalemia Impression: Routine labs show she is severely hypokalemic with a K of 3.0. Plan: Replace potassium orally Check a serum magnesium level, which is often low when potassium is low. Follow BMP daily til electrolytes are stable. - Current Meds Current Meds: Current Medications Generic Name Dose Route Start Last Admin Trade Name Freq PRN Reason Stop Dose Admin Hydrocodone Bitart/Acetaminophen 1 tab 02/20/22 14:41 02/21/22 08:20 Hydrocod/Acetam 10 Mg/325 Mg Tablet PO 1 tab Q4HR PRN Administration PAIN Alcohol 1 amp 02/13/22 21:00 02/21/22 08:19 Ethyl Alcohol 62% Swab Ampule SETH 1 amp BID AKI Administration Aspirin 81 mg 02/14/22 09:00 02/21/22 08:18 Aspirin Ec 81 Mg Tablet PO 81 mg BID AKI Administration Bupropion HCl 300 mg 02/13/22 15:00 02/21/22 08:18 Bupropion Sr 150 Mg Tablet PO 300 mg DAILY AKI Administration Calcium Carbonate/Glycine 500 mg 02/20/22 21:00 02/21/22 08:18 Calcium Carbonate Chew 500 Mg Tablet PO 500 mg BID AKI Administration Celecoxib 200 mg 02/13/22 21:00 02/21/22 08:18 Celecoxib 100 Mg Capsule PO 200 mg BID AKI Administration Cholecalciferol 50 mcg 02/21/22 09:00 02/21/22 08:19 Cholecalciferol 25 Mcg Tablet PO 50 mcg DAILY AKI Administration Cyclobenzaprine HCl 10 mg 02/18/22 02:41 02/20/22 18:38 Cyclobenzaprine 10 Mg Tablet PO 10 mg TID PRN Administration Spasms Docusate Sodium 100 mg 02/13/22 11:52 02/15/22 09:09 Docusate Sodium 100 Mg Capsule PO 100 mg BID PRN Administration Constipation Fentanyl 12.5 mcg 02/19/22 12:44 02/20/22 18:34 Fentanyl 100 Mcg/2 Ml Vial IVP 12.5 mcg Q4HR PRN Administration Severe Pain 8-10 Gabapentin 300 mg 02/17/22 06:00 02/21/22 08:19 Gabapentin 300 Mg Capsule PO 300 mg DAILY AKI Administration Gabapentin 600 mg 02/16/22 22:00 02/20/22 21:59 Gabapentin 300 Mg Capsule PO 600 mg QPM AKI Administration Gabapentin 300 mg 02/17/22 14:00 02/20/22 13:01 Gabapentin 300 Mg Capsule PO 300 mg 1400 AKI Administration Lisinopril 40 mg 02/17/22 09:00 02/21/22 08:19 Lisinopril 20 Mg Tablet PO 40 mg DAILY AKI Administration Potassium Chloride 20 meq 02/21/22 12:00 02/21/22 11:56 Potassium Chloride 10 Meq Capsule PO 20 meq BID AKI Administration Propranolol HCl 80 mg 02/13/22 15:00 02/21/22 08:19 Propranolol 40 Mg Tablet PO 80 mg DAILY AKI Administration Simethicone 80 mg 02/15/22 14:46 02/17/22 08:51 Simethicone Chew 80 Mg Tablet PO 80 mg Q6HR PRN Administration GAS Sodium Chloride 10 ml 02/13/22 17:00 02/21/22 08:20 Sodium Chloride Flush 0.9% 10 Ml Syringe IVP 10 ml 0100,0900,1700 AKI Administration Sodium Chloride 10 ml 02/13/22 11:52 02/16/22 10:44 Sodium Chloride Flush 0.9% 10 Ml Syringe IVP 10 ml PRN PRN Administration NEEDED PER PROVIDER ORDERS Temazepam 15 mg 02/19/22 12:45 02/21/22 00:06 Temazepam 15 Mg Capsule PO 15 mg QPM PRN Administration Insomnia - Lab Result Fish Bone Diagrams: 02/21/22 09:33 02/21/22 09:33 - Additional Planning My Orders: My Active Orders 02/20/22 14:41 HYDROcodone/ACET 10/325 [Pettibone 10 mg/325 mg] 1 tab PO Q4HR PRN Lidocaine Patch 5% [Lidoderm Patch] 1 patch TOP DAILY PRN 02/21/22 11:26 Miscellaenous Nursing Order [RC] QSHIFT 02/21/22 12:00 Potassium Chloride [Micro-K] 20 meq PO BID 02/22/22 05:00 BMP - BASIC METABOLIC PANEL [CHEM] DAILYLAB MAGNESIUM [CHEM] DAILYLAB Subjective - Subjective Patient Reports: Feeling Better (Less pain with jorgensen meds changed) Objective Vital Signs: Vital Signs - 24 hr 02/20/22 02/21/22 02/21/22 15:30 01:57 08:50 Temperature 36.3 C L 36.3 C L 36.5 C Heart Rate [ 61 64 69 Brachial] Respiratory 18 18 18 Rate Blood Pressure 131/73 H 115/85 H 117/58 L [Right Brachial artery] O2 Saturation 99 93 99 Oxygen O2 Source Room air I&O (Last 24 Hrs): Intake and Output Totals x24h 02/19/22 02/20/22 02/21/22 23:59 23:59 23:59 Intake Total 1330 1695 360 Output Total 2300 850 1000 Balance -970 845 -640 General: Alert, Oriented x3, No acute distress HEENT: Mucous membr. moist/pink Neck: Supple Neuro: Alert, Non Focal Cardiovascular: Regular rate, No murmurs Respiratory: No respiratory distress, Breath sounds nml Abdomen: Soft, Other (In body brace which covers abdomen) Extremities: No edema - Results Results: Laboratory Results WBC 8.1 x10^3/uL (4.8-10.8) 02/21/22 09:33 RBC 3.44 10^6/uL (4.20-5.40) L 02/21/22 09:33 Hgb 10.1 g/dL (12.0-16.0) L 02/21/22 09:33 Hct 31.8 % (37.0-47.0) L 02/21/22 09:33 MCV 92.4 fL (81.0-99.0) 02/21/22 09:33 MCH 29.4 pg (27.0-31.0) 02/21/22 09:33 MCHC 31.8 g/dL (32.0-36.0) L 02/21/22 09:33 RDW 14.6 % (12.0-15.0) 02/21/22 09:33 Plt Count 450 10^3/uL (130-450) 02/21/22 09:33 MPV 9.4 fL (7.9-10.8) 02/21/22 09:33 Neut # (Auto) 5.7 10^3/uL (1.5-6.6) 02/21/22 09:33 Lymph # (Auto) 1.4 10^3/uL (1.5-3.5) L 02/21/22 09:33 [place] # (Auto) 0.6 10^3/uL (0.0-1.0) 02/21/22 09:33 Eos # (Auto) 0.4 10^3/uL (0.0-0.7) 02/21/22 09:33 Baso # (Auto) 0.0 10^3/uL (0.0-0.1) 02/21/22 09:33 Absolute Nucleated RBC 0.00 x10^3/uL 02/21/22 09:33 Nucleated RBC % 0.0 /100WBC 02/21/22 09:33 Sodium 137 mmol/L (135-145) 02/21/22 09:33 Potassium 3.0 mmol/L (3.5-5.0) L 02/21/22 09:33 Chloride 100 mmol/L (101-111) L 02/21/22 09:33 Carbon Dioxide 29 mmol/L (21-32) 02/21/22 09:33 Anion Gap 8.0 (6-13) 02/21/22 09:33 BUN 18 mg/dL (6-20) 02/21/22 09:33 Creatinine 0.8 mg/dL (0.4-1.0) 02/21/22 09:33 Estimated GFR (MDRD) 71 (>89) L 02/21/22 09:33 Glucose 174 mg/dL (70-100) H 02/21/22 09:33 POC Whole Bld Glucose 107 mg/dL (70 - 100) H 02/13/22 07:13 Calcium 8.7 mg/dL (8.5-10.3) 02/21/22 09:33 Magnesium 1.7 mg/dL (1.7-2.8) 02/21/22 09:33 Total Bilirubin 0.7 mg/dL (0.2-1.0) 02/21/22 09:33 AST 19 IU/L (10-42) 02/21/22 09:33 ALT 18 IU/L (10-60) 02/21/22 09:33 Alkaline Phosphatase 97 IU/L (42-121) 02/21/22 09:33 Total Protein 5.8 g/dL (6.7-8.2) L 02/21/22 09:33 Albumin 2.7 g/dL (3.2-5.5) L 02/21/22 09:33 Globulin 3.1 g/dL (2.1-4.2) 02/21/22 09:33 Albumin/Globulin Ratio 0.9 (1.0-2.2) L 02/21/22 09:33 SARS-CoV-2 (PCR) NOT DETECTED 02/15/22 12:30
--- NOTE | 2022-02-21 14:41 | PROVIDER PROGRESS NOTE ---
Subjective - General Admit Date: 02/15/22 Procedure Date: 02/16/22 Post Op Days: 5 Procedure Performed: Right total hip arthroplasty, Close reduction dislocated right total hip - Review of Systems Wound/Incisions: positive: Healing well, Dressing dry and intact, No drainage. negative: Erythema General: positive: No symptoms. negative: Fever, Weakness, Chills Gastrointestinal: positive: No symptoms. negative: Nausea, Vomiting Psychiatric: positive: No symptoms - Other Other Information/Narrative: Asleep in bed, comfortable Leg is in abduction, brace in place Nursing reports she slept well overnight, pain is under better control today Objective - Patient Data Vital Signs: Vital Signs x48h Temp Pulse Resp BP Pulse Ox 02/21/22 08:50 36.5 C 69 18 117/58 L 99 Intake & Output: Intake and Output Totals x24h 02/19/22 02/20/22 02/21/22 23:59 23:59 23:59 Intake Total 1330 1695 920 Output Total 2300 850 1200 Balance -970 845 -280 - Lab Results Lab Results: 02/21/22 09:33 02/21/22 09:33 Other Lab Results: Lab Results x24hrs 02/21/22 02/21/22 02/21/22 Range/Units 09:33 09:33 09:33 WBC 8.1 (4.8-10.8) x10^3/uL RBC 3.44 L (4.20-5.40) 10^6/uL Hgb 10.1 L (12.0-16.0) g/dL Hct 31.8 L (37.0-47.0) % MCV 92.4 (81.0-99.0) fL MCH 29.4 (27.0-31.0) pg MCHC 31.8 L (32.0-36.0) g/dL RDW 14.6 (12.0-15.0) % Plt Count 450 (130-450) 10^3/uL MPV 9.4 (7.9-10.8) fL Neut # (Auto) 5.7 (1.5-6.6) 10^3/uL Lymph # (Auto) 1.4 L (1.5-3.5) 10^3/uL [place] # (Auto) 0.6 (0.0-1.0) 10^3/uL Eos # (Auto) 0.4 (0.0-0.7) 10^3/uL Baso # (Auto) 0.0 (0.0-0.1) 10^3/uL Absolute Nucleated RBC 0.00 x10^3/uL Nucleated RBC % 0.0 /100WBC Sodium 137 (135-145) mmol/L Potassium 3.0 L (3.5-5.0) mmol/L Chloride 100 L (101-111) mmol/L Carbon Dioxide 29 (21-32) mmol/L Anion Gap 8.0 (6-13) BUN 18 (6-20) mg/dL Creatinine 0.8 (0.4-1.0) mg/dL Estimated GFR (MDRD) 71 L (>89) Glucose 174 H (70-100) mg/dL Calcium 8.7 (8.5-10.3) mg/dL Magnesium 1.7 (1.7-2.8) mg/dL Total Bilirubin 0.7 (0.2-1.0) mg/dL AST 19 (10-42) IU/L ALT 18 (10-60) IU/L Alkaline Phosphatase 97 (42-121) IU/L Total Protein 5.8 L (6.7-8.2) g/dL Albumin 2.7 L (3.2-5.5) g/dL Globulin 3.1 (2.1-4.2) g/dL Albumin/Globulin Ratio 0.9 L (1.0-2.2) - Imaging Results Radiology Imaging: positive: Final report received - Current Medications Current Medications: Current Medications Generic Name Dose Route Start Last Admin Trade Name Freq PRN Reason Stop Dose Admin Hydrocodone Bitart/Acetaminophen 1 tab 02/20/22 14:41 02/21/22 14:31 Hydrocod/Acetam 10 Mg/325 Mg Tablet PO 1 tab Q4HR PRN Administration PAIN Alcohol 1 amp 02/13/22 21:00 02/21/22 08:19 Ethyl Alcohol 62% Swab Ampule SETH 1 amp BID AKI Administration Aspirin 81 mg 02/14/22 09:00 02/21/22 08:18 Aspirin Ec 81 Mg Tablet PO 81 mg BID AKI Administration Bupropion HCl 300 mg 02/13/22 15:00 02/21/22 08:18 Bupropion Sr 150 Mg Tablet PO 300 mg DAILY AKI Administration Calcium Carbonate/Glycine 500 mg 02/20/22 21:00 02/21/22 08:18 Calcium Carbonate Chew 500 Mg Tablet PO 500 mg BID AKI Administration Celecoxib 200 mg 02/13/22 21:00 02/21/22 08:18 Celecoxib 100 Mg Capsule PO 200 mg BID AKI Administration Cholecalciferol 50 mcg 02/21/22 09:00 02/21/22 08:19 Cholecalciferol 25 Mcg Tablet PO 50 mcg DAILY AKI Administration Cyclobenzaprine HCl 10 mg 02/18/22 02:41 02/20/22 18:38 Cyclobenzaprine 10 Mg Tablet PO 10 mg TID PRN Administration Spasms Docusate Sodium 100 mg 02/13/22 11:52 02/15/22 09:09 Docusate Sodium 100 Mg Capsule PO 100 mg BID PRN Administration Constipation Fentanyl 12.5 mcg 02/19/22 12:44 02/20/22 18:34 Fentanyl 100 Mcg/2 Ml Vial IVP 12.5 mcg Q4HR PRN Administration Severe Pain 8-10 Gabapentin 300 mg 02/17/22 06:00 02/21/22 08:19 Gabapentin 300 Mg Capsule PO 300 mg DAILY AKI Administration Gabapentin 600 mg 02/16/22 22:00 02/20/22 21:59 Gabapentin 300 Mg Capsule PO 600 mg QPM AKI Administration Gabapentin 300 mg 02/17/22 14:00 02/21/22 14:31 Gabapentin 300 Mg Capsule PO 300 mg 1400 AKI Administration Lisinopril 40 mg 02/17/22 09:00 02/21/22 08:19 Lisinopril 20 Mg Tablet PO 40 mg DAILY AKI Administration Potassium Chloride 20 meq 02/21/22 12:00 02/21/22 11:56 Potassium Chloride 10 Meq Capsule PO 20 meq BID AKI Administration Propranolol HCl 80 mg 02/13/22 15:00 02/21/22 08:19 Propranolol 40 Mg Tablet PO 80 mg DAILY AKI Administration Simethicone 80 mg 02/15/22 14:46 02/17/22 08:51 Simethicone Chew 80 Mg Tablet PO 80 mg Q6HR PRN Administration GAS Sodium Chloride 10 ml 02/13/22 17:00 02/21/22 08:20 Sodium Chloride Flush 0.9% 10 Ml Syringe IVP 10 ml 0100,0900,1700 AKI Administration Sodium Chloride 10 ml 02/13/22 11:52 02/16/22 10:44 Sodium Chloride Flush 0.9% 10 Ml Syringe IVP 10 ml PRN PRN Administration NEEDED PER PROVIDER ORDERS Temazepam 15 mg 02/19/22 12:45 02/21/22 00:06 Temazepam 15 Mg Capsule PO 15 mg QPM PRN Administration Insomnia - Physical Exam Comments/Other: Dressing is dry and intact, drainage. She is in no acute distress. Limbs are equal in length, no external rotation to right lower extremity. ABX Reporting Has patient been on IV antibiotics over the past 48 hours?: No Impression/Plan - Problem List Problem List: 66-year-old female who is postoperative day 5 from a right total hip art hroplasty by Dr. Nunez at [facility]. Today she has improved pain control and is resting comfortably. She was seen by Dr. Nunez and myself today. Plan: -Weightbearing as tolerated with front wheeled walker and hip in abduction brace. -Mobility restrictions: No external rotation, active abduction or abduction to right lower extremity. -Brace to remain in place at all times, skin was marked with correct location of the brace. Brace should not be removed for showering, sponge bath around the brace is appropriate. -Physical therapy and Occupational Therapy following -DVT prophylaxis with 81 mg of aspirin twice daily for 6 weeks -Pain control under management of hospitalist, will defer to her expertise -Diet: Soft diet, no IV fluids -Antibiotics: None -Disposition: Awaiting placement at group home facility. -Follow-up: Orthopedic office within 2 weeks of discharge -Appreciate input of hospitalist physician for management of comorbidities. Continue gabapentin for restless leg syndrome and lisinopril for chronic hypertension. -[id number] mg for sleep, good effect
[2022-02-21] MEDS: SIMETHICONE CHEW 80 MG TABLET PO PRN (15:40)
[2022-02-21] MEDS: CYCLOBENZAPRINE 10 MG TABLET PO PRN (19:23)
[2022-02-22] MEDS: SODIUM CHLORIDE FLUSH 0.9% 10 ML SYRINGE IVP SCH ×3 (01:00→17:26)
[2022-02-22 05:10] LABS: CREATININE 0.8 mg/dL (0.4-1.0); MAGNESIUM 1.8 mg/dL (1.7-2.8)
--- NOTE | 2022-02-22 07:40 | PROVIDER PROGRESS NOTE ---
Assessment/Plan - Problem List (1) Hip joint painful on movement Assessment/Plan: Because of needing to go to the OR repeatedly for several procedures, now needing to wear a brace, she needs to start PT rehab. She has pain with weightbearing. Her pain control improved after the changes in meds I madde yesterday. Plan: Continue with the aspirin and NSAIDs scheduled We stopped this very high-dose of prn Tylenol 1000mg q6h. We combined her Tylenol and narcotic dosing to Acetaminophen/hydrocodone 300/5 mg every 4 hours as needed pain. Expect that she will need a dose of this 30 minutes before doing physical therapy. Also, being on scheduled ASA and Celoxicab, she needs to be on Protonix, to prevent a gastric ulcer. I ordered this. 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 PT and OT wanted clarification as to whether she could take a shower, and Ortho PA said No, she must get a sponge bath and shampoo in bed. Plan: Management as per Ortho. SW is looking for a SNF to accept this patient, for PT and OT rehab. (3) Hypoxia Impression: She has some documented saturations on room air of 90%, which is borderline low unless she was a smoker. Plan: Check a CXR If she has atelectasis, as I suspect due to wearing the body brace, she needs more aggressive pulmonary toilet, and Incentive Spirometry TID>> Incentive Spirometry orderd and she needs to be [facility] on this (4) Hyperglycemia Impression: Two sets of fasting a.m. labs reveal mildly elevated glu > 100. Plan: Check an A1c If A1c is >7, start a Diabetic diet and Diabetic education would need to be ordered. (5) HTN Impression: Blood pressure is well controlled on her present meds Plan: Continue present BP meds (6) Hypokalemia Impression: Improved Yesterday routine labs showed she was severely hypokalemic with a K of 3.0. It was replaced orally Plan: Check a serum magnesium level, which is often low when potassium is low. Follow BMP daily til electrolytes are stable. - Current Meds Current Meds: Current Medications Generic Name Dose Route Start Last Admin Trade Name Freq PRN Reason Stop Dose Admin Hydrocodone Bitart/Acetaminophen 1 tab 02/20/22 14:41 02/21/22 23:37 Hydrocod/Acetam 10 Mg/325 Mg Tablet PO 1 tab Q4HR PRN Administration PAIN Alcohol 1 amp 02/13/22 21:00 02/21/22 21:39 Ethyl Alcohol 62% Swab Ampule SETH 1 amp BID AKI Administration Aspirin 81 mg 02/14/22 09:00 02/21/22 21:39 Aspirin Ec 81 Mg Tablet PO 81 mg BID AKI Administration Bupropion HCl 300 mg 02/13/22 15:00 02/21/22 08:18 Bupropion Sr 150 Mg Tablet PO 300 mg DAILY AKI Administration Calcium Carbonate/Glycine 500 mg 02/20/22 21:00 02/21/22 21:39 Calcium Carbonate Chew 500 Mg Tablet PO 500 mg BID AKI Administration Celecoxib 200 mg 02/13/22 21:00 02/21/22 21:39 Celecoxib 100 Mg Capsule PO 200 mg BID AKI Administration Cholecalciferol 50 mcg 02/21/22 09:00 02/21/22 08:19 Cholecalciferol 25 Mcg Tablet PO 50 mcg DAILY AKI Administration Cyclobenzaprine HCl 10 mg 02/18/22 02:41 02/21/22 19:23 Cyclobenzaprine 10 Mg Tablet PO 10 mg TID PRN Administration Spasms Docusate Sodium 100 mg 02/13/22 11:52 02/15/22 09:09 Docusate Sodium 100 Mg Capsule PO 100 mg BID PRN Administration Constipation Fentanyl 12.5 mcg 02/19/22 12:44 02/20/22 18:34 Fentanyl 100 Mcg/2 Ml Vial IVP 12.5 mcg Q4HR PRN Administration Severe Pain 8-10 Gabapentin 300 mg 02/17/22 06:00 02/21/22 08:19 Gabapentin 300 Mg Capsule PO 300 mg DAILY AKI Administration Gabapentin 600 mg 02/16/22 22:00 02/21/22 21:38 Gabapentin 300 Mg Capsule PO 600 mg QPM AKI Administration Gabapentin 300 mg 02/17/22 14:00 02/21/22 14:31 Gabapentin 300 Mg Capsule PO 300 mg 1400 AKI Administration Lisinopril 40 mg 02/17/22 09:00 02/21/22 08:19 Lisinopril 20 Mg Tablet PO 40 mg DAILY AKI Administration Potassium Chloride 20 meq 02/21/22 12:00 02/21/22 21:39 Potassium Chloride 10 Meq Capsule PO 20 meq BID AKI Administration Propranolol HCl 80 mg 02/13/22 15:00 02/21/22 08:19 Propranolol 40 Mg Tablet PO 80 mg DAILY AKI Administration Simethicone 80 mg 02/15/22 14:46 02/21/22 15:40 Simethicone Chew 80 Mg Tablet PO 80 mg Q6HR PRN Administration GAS Sodium Chloride 10 ml 02/13/22 17:00 02/22/22 01:00 Sodium Chloride Flush 0.9% 10 Ml Syringe IVP 10 ml 0100,0900,1700 AKI Administration Sodium Chloride 10 ml 02/13/22 11:52 02/16/22 10:44 Sodium Chloride Flush 0.9% 10 Ml Syringe IVP 10 ml PRN PRN Administration NEEDED PER PROVIDER ORDERS Temazepam 15 mg 02/19/22 12:45 02/21/22 23:37 Temazepam 15 Mg Capsule PO 15 mg QPM PRN Administration Insomnia - Lab Result Fish Bone Diagrams: 02/21/22 09:33 02/22/22 04:46 - Additional Planning My Orders: My Active Orders 02/21/22 11:26 Miscellaenous Nursing Order [RC] QSHIFT 02/21/22 12:00 Potassium Chloride [Micro-K] 20 meq PO BID 02/22/22 07:38 Chest 1 View X-Ray [XR] Stat 02/22/22 08:00 Pantoprazole [Protonix] 40 mg PO QDAC Subjective - Subjective Patient Reports: No Complaints Objective Vital Signs: Vital Signs - 24 hr 02/21/22 02/21/22 02/22/22 08:50 16:23 00:20 Temperature 36.5 C 36.4 C L 36.5 C Heart Rate [ 69 60 62 Brachial] Respiratory 18 20 20 Rate Blood Pressure 117/58 L 120/73 86/53 L [Right Brachial artery] O2 Saturation 99 94 90 L 02/22/22 01:30 Temperature Heart Rate [ 64 Brachial] Respiratory Rate Blood Pressure 111/62 [Right Brachial artery] O2 Saturation Oxygen O2 Source Room air I&O (Last 24 Hrs): Intake and Output Totals x24h 02/20/22 02/21/22 02/22/22 23:59 23:59 23:59 Intake Total 1695 1340 350 Output Total 850 1400 800 Balance 845 -60 -450 General: Alert, Oriented x3 HEENT: Mucous membr. moist/pink Neck: Supple Neuro: Alert, Non Focal Cardiovascular: Regular rate Respiratory: No respiratory distress Abdomen: Soft, Other (Brace covers part of abd) Extremities: No edema - Results Results: Laboratory Results WBC 8.1 x10^3/uL (4.8-10.8) 02/21/22 09:33 RBC 3.44 10^6/uL (4.20-5.40) L 02/21/22 09:33 Hgb 10.1 g/dL (12.0-16.0) L 02/21/22 09:33 Hct 31.8 % (37.0-47.0) L 02/21/22 09:33 MCV 92.4 fL (81.0-99.0) 02/21/22 09:33 MCH 29.4 pg (27.0-31.0) 02/21/22 09:33 MCHC 31.8 g/dL (32.0-36.0) L 02/21/22 09:33 RDW 14.6 % (12.0-15.0) 02/21/22 09:33 Plt Count 450 10^3/uL (130-450) 02/21/22 09:33 MPV 9.4 fL (7.9-10.8) 02/21/22 09:33 Neut # (Auto) 5.7 10^3/uL (1.5-6.6) 02/21/22 09:33 Lymph # (Auto) 1.4 10^3/uL (1.5-3.5) L 02/21/22 09:33 [place] # (Auto) 0.6 10^3/uL (0.0-1.0) 02/21/22 09:33 Eos # (Auto) 0.4 10^3/uL (0.0-0.7) 02/21/22 09:33 Baso # (Auto) 0.0 10^3/uL (0.0-0.1) 02/21/22 09:33 Absolute Nucleated RBC 0.00 x10^3/uL 02/21/22 09:33 Nucleated RBC % 0.0 /100WBC 02/21/22 09:33 Sodium 140 mmol/L (135-145) 02/22/22 04:46 Potassium 4.0 mmol/L (3.5-5.0) 02/22/22 04:46 Chloride 104 mmol/L (101-111) 02/22/22 04:46 Carbon Dioxide 28 mmol/L (21-32) 02/22/22 04:46 Anion Gap 8.0 (6-13) 02/22/22 04:46 BUN 20 mg/dL (6-20) 02/22/22 04:46 Creatinine 0.8 mg/dL (0.4-1.0) 02/22/22 04:46 Estimated GFR (MDRD) 71 (>89) L 02/22/22 04:46 Glucose 128 mg/dL (70-100) H 02/22/22 04:46 POC Whole Bld Glucose 107 mg/dL (70 - 100) H 02/13/22 07:13 Calcium 9.0 mg/dL (8.5-10.3) 02/22/22 04:46 Magnesium 1.8 mg/dL (1.7-2.8) 02/22/22 04:46 Total Bilirubin 0.7 mg/dL (0.2-1.0) 02/21/22 09:33 AST 19 IU/L (10-42) 02/21/22 09:33 ALT 18 IU/L (10-60) 02/21/22 09:33 Alkaline Phosphatase 97 IU/L (42-121) 02/21/22 09:33 Total Protein 5.8 g/dL (6.7-8.2) L 02/21/22 09:33 Albumin 2.7 g/dL (3.2-5.5) L 02/21/22 09:33 Globulin 3.1 g/dL (2.1-4.2) 02/21/22 09:33 Albumin/Globulin Ratio 0.9 (1.0-2.2) L 02/21/22 09:33 SARS-CoV-2 (PCR) NOT DETECTED 02/15/22 12:30
[2022-02-22] MEDS: CELECOXIB 100 MG CAPSULE PO SCH ×2 (09:03→20:44)
[2022-02-22] MEDS: buPROPion SR 150 MG TABLET PO SCH (09:03)
[2022-02-22] MEDS: PROPRANOLOL 40 MG TABLET PO SCH (09:04)
[2022-02-22] MEDS: ethyl alcohoL 62% SWAB AMPULE NAS SCH ×2 (09:04→20:44)
[2022-02-22] MEDS: CALCIUM CARBONATE CHEW 500 MG TABLET PO SCH ×2 (09:08→20:44)
[2022-02-22] MEDS: GABAPENTIN 300 MG CAPSULE PO SCH ×3 (09:08→20:44)
[2022-02-22] MEDS: CHOLECALCIFEROL 25 MCG TABLET PO SCH (09:08)
[2022-02-22] MEDS: POTASSIUM CHLORIDE 10 MEQ CAPSULE PO SCH ×2 (09:08→20:44)
[2022-02-22] MEDS: polyethylene glycoL 3350 17 GM PACKET PO SCH (09:09)
[2022-02-22] MEDS: ASPIRIN EC 81 MG TABLET PO SCH ×2 (09:09→20:44)
[2022-02-22] MEDS: SENNA 8.6 MG TABLET PO SCH (09:09)
[2022-02-22] MEDS: PANTOPRAZOLE 40 MG TABLET PO SCH (09:19)
--- NOTE | 2022-02-22 09:36 | XRAY Report ---
PROCEDURE: Chest 1 View X-Ray INDICATIONS: Hypoxia TECHNIQUE: One view of the chest was acquired. COMPARISON: None. FINDINGS: Surgical changes and devices: None. Lungs and pleura: No pleural effusions or pneumothorax. Lungs are clear. Mediastinum: Mediastinal contours appear normal. Heart size is normal. Bones and chest wall: No suspicious bony lesions. Overlying soft tissues appear unremarkable. IMPRESSION: No evidence acute pulmonary process. Reviewed by: Riley Wagner MD on 02/22/2022 9:34 AM [facility] Approved by: Riley Wagner MD on 02/22/2022 9:34 AM [facility] Station ID: [id number]
--- NOTE | 2022-02-22 11:42 | DISCHARGE SUMMARY ---
"Discharge Summary Admit Date: 02/15/22 Discharge Date: 02/22/22 Discharging Provider: Jessy Olsen PA-C Primary Care Provider: Shar Cueva PA-C Code Status: Attempt Resuscitation Condition at Discharge: Stable Discharge Disposition: 03 SNF DC/Xfer Discharge [facility]: [facility] - DIAGNOSES Admission Diagnoses: 1. Right hip total arthroplasty 2. Dislocation of right hip arthroplasty 3. Oxygen desaturation 4. Hypokalemia 5. Hyperglycemia 6. Hypertension 7. Fracture of ischium 8. Restless leg syndrome 9. Essential tremor 10. Dysuria Discharge Diagnoses with Status of Each Condition: 1. Right total hip arthroplasty - stable 2. Right hip dislocation - closed reduction under anesthesia successfully twice, brace has inhibited dislocation for 7 days 3. Fracture of acetabulum - stable, will follow in orthopedic clinic 4. Episodes of hypoxia - stable on room air, needs incentive spirometry three times daily 5. Hypokalemia - stable, successful oral repletion 6. Hyperglycemia - needs outpatient work up, stable for discharge 7. Hypertension - stable on home medication lisinopril 8. Restless leg syndrome-increased gabapentin dose to 600 mg in the evening, no change to dosage of other gabapentin doses 300 in the morning and afternoon 9. Essential tremor -stable on 80 mg of propanolol 10. Dysuria - reported the morning of discharge, stat CBC with WBC of 11.4. UA showed small occult blood without nitrites or luekocyte esterases. No culture indicated. No antibiotics initiated prior to discharge - HPI History of Present Illness: 66 year old female underwent elective right total hip arthroplasty on 02/13/2022 at [facility] by Dr. Ricci Nunez. She had longstanding right hip osteoarthritis which was progressive and failed conservative management. For this reason she underwent elective right total hip arthroplasty. She experienced dislocation of the right hip arthroplasty on postoperative day 0 requiring closed reduction under anesthesia and had unmanageable pain. For this reason she was not discharged on postop day 0 and instead was placed in observation. All of her pain medications were converted to the IV route to better quantify the most appropriate oral pain medication dose for discharge into the outpatient setting. However she experienced a second right hip dislocation with successful reduction under anesthesia. At this time she was admitted to [facility] for stabilization of right hip dislocation, this is a surgical complication. - CONSULTS | PROCEDURES Consultations: Hospitalist Procedures: Right total hip arthroplasty on 02/13/[address] Nunez. Complicated by 2 dislocations of right hip. She underwent successful closed reduction under anesthesia twice before hip abduction brace was placed with desired effect of inhibiting dislocation and adhering to mobility restrictions. 02/13/2022 Right hip X-ray - Expected post operative changes for right total hip arthroplasty 02/14/[address] - Dislocated right hip prosthesis with subcutaneous air vs. hematoma. 10 cm cystic mass in the right adenexa. Athertosclerotic vascular calcification. No definite acute fracture 02/14/2022 Closed reduction of right hip under anesthesia, successful 02/14/2022 Right hip x-ray - right hip in anatomic position 02/16/2022 Right hip X-ray - Right hip arthroplasty dislocation 02/16/2022 Closed reduction of right hip under anesthesia, successful 02/16/2022 Right hip x-ray - Relocation of right hip arthroplasty 02/20/2022 Right hip x-ray - Total right hip arthroplasty without evidence of hardware failure or loosening, no dislocation. Subtle fracture of inferior pubic ramus 02/22/2022 Chest X-ray - No pleural effusions or pneumothorax. Lungs are clear. 02/25/2022 - UA without nitrites or luekocyte esterases. Small occult blood seen without indication for culture. - HOSPITAL COURSE Hospital Course: 66 year old female presented for elective right hip total arthroplasty on 02/13/2022. She was placed in an abduction pillow and continued in out patient status for discharge the next morning. She was changed to observation status as she had unmanaged pain on post-operative pain regimen of oral analgesics and she was changed to IV narcotics with intent to better assess an appropriate out patient oral pain regimen. A CT was obtained to better evaluate the hip given her extreme pain. The CT showed a dislocated right hip arthroplasty and a fracture of the acetabulum without displacement or changes in the prosthesis. She reported that on post operative day 0 had increased pain after sitting on the side of the bed overnight due to pain in her calves typical for her restless leg syndrome. On 02/14/2022 she underwent successful closed reduction under anesthesia by Dr. Nunez. On 02/15/2022 she was admitted to [facility] for stabilization of surgical complication of dislocation of her right total hip arthroplasty. [facility] was contacted by Dr. Nunez. He consulted with Dr. Jaime from who advised that no revision was necessary at this time after reviewing the CT obtained at [facility]. He suggested a hip abduction brace which was obtained on 02/18/2022. There was a delay as no contacted suppliers could deliver the durable medical equipment over the weekend, brace was ultimately obtained from [employer]. Prior to the brace being obtained, the patient experienced another right hip dislocation on 02/16/2022 which was again managed with successful closed reduction under anesthesia by Dr. Nunez on 02/16/2022 without complication. After the brace was obtained and placed, she continued to have pain with ambulation with physical therapy. She had no episodes of recurrent dislocation. Her pain regimen was altered with good effect and restoril was added to aid with sleep. Home medication lisinopril was resumed for hypertension. She was placed on protonix to prevent gastrointestinal bleeding with celebrex and aspirin regimen. She was found to have episodes of desaturation and a chest x-ray obtained which showed no evidence of pneumonia or pneumothorax. She was initiated on three times daily incentive spirometry. She was found to have a fasting blood sugar that was elevated which requires out patient work up. She was found to be hypokalemic with successful oral repletion. On 02/22/2022 she was accepted to [facility] [place] for continued care and physical therapy / occupational therapy services. She has experienced increased confusion on 02/22/2022 and was kept at [facility] for further observation and evaluation. No transportation was available to take her to [facility] on 02/22/2022. Her narcotic pain medications were decreased in quantity and frequency and her Restoril was discontinued due to concern it may be contributing to confusion. The next day her confusion resolved and she appeared back at her baseline cognitive status. She remained in the hospital over the weekend and transportation was arranged to [facility] on 02/25/2022 when she was discharged. At time of discharge she reported dysuria and had a slightly elevated white blood cell count, however, t he urinalysis showed no nitrites or leukocyte esterases and the patient was not initiated on oral antibiotics prior to discharge. - ALLERGIES Allergies/Adverse Reactions: Allergies Allergy/AdvReac Type Severity Reaction Status Date / Time Penicillins Allergy Hives Verified 02/07/22 14:24 - MEDICATIONS Home Medications: Ambulatory Orders Medication Instructions Recorded Confirmed Acetaminophen [Tylenol] 650 mg PO Q6H PRN 02/07/22 02/07/22 Bupropion HCl [Wellbutrin Xl] 300 mg PO DAILY 02/07/22 02/13/22 Calcium Carbonate [Calcium] 600 mg PO DAILY 02/07/22 02/13/22 Cholecalciferol [Vitamin D3] 50 mcg PO DAILY 02/07/22 02/13/22 Gabapentin [Neurontin] 300 mg PO DAILY 02/07/22 02/13/22 Omeprazole 20 mg PO PRN PRN 02/07/22 02/13/22 Propranolol HCl [Propranolol HCl 120 mg PO DAILY 02/15/22 02/15/22 ER] Aspirin EC [Ecotrin] 81 mg PO BID #60 tab 02/25/22 Calcium Carbonate [Tums (Calcium 500 mg PO BID tab 02/25/22 Carbonate 500mg)] Celecoxib [CeleBREX] 200 mg PO BID #60 cap 02/25/22 Gabapentin [Neurontin] 300 mg PO 1400 #30 cap 02/25/22 Gabapentin [Neurontin] 600 mg PO QPM #30 cap 02/25/22 HYDROcodone/ACET 7.5/325 [[place] 1 tab PO Q6HR PRN #20 tab 02/25/22 7.5/325] Lisinopril [Zestril] 40 mg PO DAILY #30 tab 02/25/22 Pantoprazole [Protonix] 40 mg PO QDAC #30 tab 02/25/22 - PHYSICAL EXAM AT DISCHARGE General Appearance: positive: No acute distress, Alert Skin: positive: No rash, Warm, Dry Neurologic/Psychiatric: positive: Oriented x3 Physical Exam Other/Comments: She is alert and oriented, sleepy Right hip Mepilex dressing is dry and intact without drainage Hip orthotic brace remains in place, skin marked with skin marker to outline correct position of brace Her foot remains in neutral alignment without external rotation Patellas appear equal in height Appropriate range of motion given hip brace in place Neurovascularly intact to right lower extremity - LABS Result Diagrams: 02/25/22 09:42 02/22/22 04:46 - DIAGNOSTIC IMAGING Diagnostic Imaging Results: Final report reviewed, Read independently - QUALITY (Female Hip Fx Only) Was patient sent home on osteoporosis medication?: No - FOLLOW UP Follow Up: Primary care provider at [facility] hyperglycemia, hypokalemia, desaturations, hypertension, chronic pain management Orthopedics at [facility] within 2 weeks of discharge - TIME SPENT Time Spent in Discharge (Minutes): 40"
--- NOTE | 2022-02-22 12:47 | Discharge Plan ---
"Discharge Plan for SNF / [facility] - Discharge Plan And Transition Orders Problem Reviewed?: Yes Disposition: 03 SNF DC/Xfer Condition: Stable Allergies and Adverse Reactions: Allergies Allergy/AdvReac Type Severity Reaction Status Date / Time Penicillins Allergy Hives Verified 02/07/22 14:24 Health Concerns: You were here for an elective right total hip arthroplasty which was complicated by 2 dislocations with successful closed reduction. Now you need to complete rehab so that you can return home safely. Reb has been arranged at [facility]. Plan of Treatment: You underwent a right total hip arthroplasty on 02/13/2022 with a dislocation on 02/14/2022 and 02/16/2022 which both were successfully reduced under anesthesia. You underwent closed reduction of right hip after dislocation under anesthesia twice. Your medications were changed to increase your gabapentin to 600 mg in the evening with 300 mg in the morning and the afternoon. This was to decrease your pain from restless leg syndrome. You were placed on aspirin 81 mg twice daily for prevention of blood clots. This will continue for 6 weeks post operative. You were placed on protonix 40 mg daily to prevent stomach and intestinal ulcers Since you are on the combination of ibuprofen and aspirin, that you are taking. You were given an incentive spirometer to improve your deep inhalation and improve the amount of oxygen into your lungs and blood. Your blood tests showed your blood sugar is slightly high. You will need to follow up with your primary care provider regarding this problem. Care Goals: Improvement in symptoms and stabilization are the goals. Assessment: The patient and her son Jamie has been informed of the plan. - SNF / [facility] Transition Orders Admit to (Facility): [facility] Under the care of (Name): Dr. Mathews Discharge Diagnosis: 1. Right total hip arthroplasty for osteoarthritis 2. Dislocation of right arthroplasty twice with closed reduction 3. Desaturations, low oxygen, improved with incentive spirometry 4. Hypokalemia, repleted with KCl oral 5. Hyperglycemia, needs further work up 6. Hypertension, stable on meds 7. Restless leg syndrome 8. Insomnia 9. Non displaced fracture of ischium Medicare Certification Statement: I certify that [facility] care is medically necessary on a continuing basis for any of the conditions for which she/he is receiving care during hospitalization. Notify PCP of admission and forward orders to primary provider for signature. Other Notification Orders: Call PCP immediately if patient develops dyspnea, chest pain/tightness or edema. House Bowel Program: Yes Additional Bowel Program Orders: If no BM after 2 days, nurse may give M.O.M. 30ml PO PRN and/or ducolax Supp 1 [place] and/or JERRY 250mg P.O., and/or senna 1-2 tabs PO. On day 3 nurse may give repeat above order until residents constipation is resolved. Annual Influenza Vaccine (between Nov 08 and June 07): Yes Two-step PPD per [facility] [id number] or approved exception documents: Yes Treatments & Other Orders: Daily PT and OT Orthopedic Orders: Hip brace must remain in place / at all times. The skin is marked with the correct location of the brace. The brace will limit adduction and maintain the hip in abduction which is a stable position for her hip. No external rotation of the right lower extremity. The brace cannot be removed for bathing. A sponge bath and dry shampoo should be used. The brace should remain in place until discontinued by her Orthopedic surgeon Dr. Nunez at [facility]. The brace is needed to prevent dislocation after right total hip arthroplasty Medication Orders: PLEASE REFER TO THE DISCHARGE MEDICATION LIST. Insulin Orders?: No - Medications New Prescriptions: HYDROcodone/ACET 7.5/325 [[place] 7.5/325] 1 tab PO Q6HR PRN #20 tab PRN Reason: Pain Celecoxib [CeleBREX] 200 mg PO BID #60 cap Aspirin EC [Ecotrin] 81 mg PO BID #60 tab Gabapentin [Neurontin] 300 mg PO 1400 #30 cap Gabapentin [Neurontin] 600 mg PO QPM #30 cap Pantoprazole [Protonix] 40 mg PO QDAC #30 tab Lisinopril [Zestril] 40 mg PO DAILY #30 tab - Diet Type: No added sugar Texture: [facility] soft Liquids: Thin May have monthly special meal: Yes - Therapies | Activity Therapy: Evaluation | Treat if indicated: PT (Hip abduction brace to remain in place at all times. Do not remove for sleep or shower. No active abduction, external rotation and adduction.), OT Rehabilitation Potential: Maximize functional status Activity: Wt Bearing as Tolerated (Weight bearing as tolerated with a front wheeled walker) Weight Bearing: Full Weight Extremities: NWBLLE Assistance Devices: Walker Follow Up: [facility] orth[facility]ics appointment needed within 2 weeks of discharge. Follow up with your primary care provider after discharge from [facility], the SNF."
[2022-02-22] MEDS: CYCLOBENZAPRINE 10 MG TABLET PO PRN (12:54)
[2022-02-22] MEDS: HYDROcod/ACETAM 10 MG/325 MG TABLET PO PRN ×2 (12:54→17:26)
--- NOTE | 2022-02-22 14:29 | PROVIDER PROGRESS NOTE ---
Subjective - General Admit Date: 02/15/22 Procedure Date: 02/16/22 Post Op Days: 6 Procedure Performed: Right total hip arthroplasty, Close reduction dislocated right total hip - Review of Systems Wound/Incisions: positive: Healing well, Dressing dry and intact, No drainage. negative: Erythema General: positive: No symptoms. negative: Fever, Weakness, Chills Gastrointestinal: positive: No symptoms. negative: Nausea, Vomiting Psychiatric: positive: Confusion - Other Other Information/Narrative: Alert, frustrated in bed She is unhappy regarding poor communication from social work/ care team about discharge. She states she has never heard of the facility to which she has been accepted and does not recall speaking with social work regarding SNF placement States she would "like to speak to a hospital traffic administrator" and stops speaking to this provider No chest pain, dyspnea, nausea, emesis Objective - Patient Data Vital Signs: Vital Signs x48h Resp BP Pulse Ox 02/22/22 09:06 19 119/70 92 Intake & Output: Intake and Output Totals x24h 02/20/22 02/21/22 02/22/22 23:59 23:59 23:59 Intake Total 1695 1340 650 Output Total 850 1400 1275 Balance 845 60 625 - Lab Results Lab Results: 02/21/22 09:33 02/22/22 04:46 Other Lab Results: Lab Results x24hrs 02/22/22 Range/Units 04:46 Sodium 140 (135-145) mmol/L Potassium 4.0 (3.5-5.0) mmol/L Chloride 104 (101-111) mmol/L Carbon Dioxide 28 (21-32) mmol/L Anion Gap 8.0 (6-13) BUN 20 (6-20) mg/dL Creatinine 0.8 (0.4-1.0) mg/dL Estimated GFR (MDRD) 71 L (>89) Glucose 128 H (70-100) mg/dL Calcium 9.0 (8.5-10.3) mg/dL Magnesium 1.8 (1.7-2.8) mg/dL - Current Medications Current Medications: Current Medications Generic Name Dose Route Start Last Admin Trade Name Freq PRN Reason Stop Dose Admin Hydrocodone Bitart/Acetaminophen 1 tab 02/20/22 14:41 02/22/22 12:54 Hydrocod/Acetam 10 Mg/325 Mg Tablet PO 1 tab Q4HR PRN Administration PAIN Alcohol 1 amp 02/13/22 21:00 02/22/22 09:04 Ethyl Alcohol 62% Swab Ampule SETH 1 amp BID AKI Administration Aspirin 81 mg 02/14/22 09:00 02/22/22 09:09 Aspirin Ec 81 Mg Tablet PO 81 mg BID AKI Administration Bupropion HCl 300 mg 02/13/22 15:00 02/22/22 09:03 Bupropion Sr 150 Mg Tablet PO 300 mg DAILY AKI Administration Calcium Carbonate/Glycine 500 mg 02/20/22 21:00 02/22/22 09:08 Calcium Carbonate Chew 500 Mg Tablet PO 500 mg BID AKI Administration Celecoxib 200 mg 02/13/22 21:00 02/22/22 09:03 Celecoxib 100 Mg Capsule PO 200 mg BID AKI Administration Cholecalciferol 50 mcg 02/21/22 09:00 02/22/22 09:08 Cholecalciferol 25 Mcg Tablet PO 50 mcg DAILY AKI Administration Cyclobenzaprine HCl 10 mg 02/18/22 02:41 02/22/22 12:54 Cyclobenzaprine 10 Mg Tablet PO 10 mg TID PRN Administration Spasms Docusate Sodium 100 mg 02/13/22 11:52 02/15/22 09:09 Docusate Sodium 100 Mg Capsule PO 100 mg BID PRN Administration Constipation Fentanyl 12.5 mcg 02/19/22 12:44 02/20/22 18:34 Fentanyl 100 Mcg/2 Ml Vial IVP 12.5 mcg Q4HR PRN Administration Severe Pain 8-10 Gabapentin 300 mg 02/17/22 06:00 02/22/22 09:08 Gabapentin 300 Mg Capsule PO 300 mg DAILY AKI Administration Gabapentin 600 mg 02/16/22 22:00 02/21/22 21:38 Gabapentin 300 Mg Capsule PO 600 mg QPM AKI Administration Gabapentin 300 mg 02/17/22 14:00 02/21/22 14:31 Gabapentin 300 Mg Capsule PO 300 mg 1400 AKI Administration Lisinopril 40 mg 02/17/22 09:00 02/21/22 08:19 Lisinopril 20 Mg Tablet PO 40 mg DAILY AKI Administration Pantoprazole Sodium 40 mg 02/22/22 08:00 02/22/22 09:19 Pantoprazole 40 Mg Tablet PO 40 mg QDAC AKI Administration Polyethylene Glycol 17 gm 02/22/22 09:00 02/22/22 09:09 Polyethylene Glycol 3350 17 Gm Packet PO Not Given DAILY AKI Potassium Chloride 20 meq 02/21/22 12:00 02/22/22 09:08 Potassium Chloride 10 Meq Capsule PO 20 meq BID AKI Administration Propranolol HCl 80 mg 02/13/22 15:00 02/22/22 09:04 Propranolol 40 Mg Tablet PO 80 mg DAILY AKI Administration Senna 8.6 - 17.2 mg 02/22/22 09:00 02/22/22 09:09 Senna 8.6 Mg Tablet PO Not Given DAILY KAI Simethicone 80 mg 02/15/22 14:46 02/21/22 15:40 Simethicone Chew 80 Mg Tablet PO 80 mg Q6HR PRN Administration GAS Sodium Chloride 10 ml 02/13/22 17:00 02/22/22 09:09 Sodium Chloride Flush 0.9% 10 Ml Syringe IVP 10 ml 0100,0900,1700 AKI Administration Sodium Chloride 10 ml 02/13/22 11:52 02/16/22 10:44 Sodium Chloride Flush 0.9% 10 Ml Syringe IVP 10 ml PRN PRN Administration NEEDED PER PROVIDER ORDERS Temazepam 15 mg 02/19/22 12:45 02/21/22 23:37 Temazepam 15 Mg Capsule PO 15 mg QPM PRN Administration Insomnia - Physical Exam Wound/Incisions: positive: Dressing dry and intact, No drainage General Appearance: positive: Alert Extremities: positive: Other Comments/Other: Right lower extremity remains in abduction with brace in place. No shortening or external rotation of the right leg Dressing dry and intact Neurovascularly intact to right lower extremity ABX Reporting Has patient been on IV antibiotics over the past 48 hours?: No Impression/Plan - Problem List Problem List: 66-year-old female who was admitted after complication of right hip total arthroplasty with 2 dislocations during her hospital stay. She now remains in an abduction brace orthosis with good effect. She is working with physical therapy and Occupational Therapy and was able to ambulate to the commode. Her disposition was awaiting acceptance at a long-term facility. Today I received a call from hospitalist physician regarding care rounds stating that the patient was accepted at [facility] in [place]. When I spoke to the patient she was very angry stating that no one discussed her choices for long-term facility with her however there is documentation in the chart that social work has been communicating with her regularly throughout her stay regarding this decision. When I spoke to the patient she was brief and her answers, frustrated and stated she wanted to talk to a hospital traffic administrator. There was no further communication with me. After speaking with social work, the patient was reportedly willing to go to long-term facility after the situation was explained. vocational rehabilitation administrator, Rip Desai, was contacted to speak with the patient. When speaking with Rip again the patient agreed to go to the long-term facility but was frustrated with the communication regarding discharge. When the hospitalist physician spoke with the patient 10 minutes later, again she was frustrated and refusing to be discharged to long-term facility. The hospitalist physician and I discussed new confusion presenting in the patient today regarding her inability to remember previous conversations. This is new for this patient has not has not been present in other days of her hospital stay. Hospitalist physician will complete work-up for altered mental status and patient will not be discharged today. Plan: -Hospitalist physician to complete work-up for altered mental status/confusion. -Patient will still need discharge to a long-term facility, will not discharge today given confusion -Continue ambulating with front wheeled walker and hip abduction brace at all times. Physical therapy and Occupational Therapy to be working with the patient daily. No external rotation, active abduction or adduction. -Continue pain regimen as per hospitalist physician, decrease narcotics today given confusion -Discontinue use of Restoril, given increased confusion -Continue DVT prophylaxis with aspirin 81 mg twice daily -Appreciate hospitalist expertise in management of other medical comorbidities including hypertension (on lisinopril), ulcer prophylaxis (on Protonix), restless leg syndrome (on gabapentin)
[2022-02-22] MEDS: lisinopriL 20 MG TABLET PO SCH (14:44)
[2022-02-22] MEDS ORDERED: fentaNYL 100 MCG/2 ML VIAL IVP PRN (17:35)
[2022-02-22] MEDS: CYCLOBENZAPRINE 10 MG TABLET PO SCH (20:44)
[2022-02-22] MEDS: HYDROcod/ACETAM 7.5 MG/325 MG TABLET PO PRN (22:27)
[2022-02-23] MEDS: SODIUM CHLORIDE FLUSH 0.9% 10 ML SYRINGE IVP SCH ×4 (00:12→23:52)
[2022-02-23] MEDS: HYDROcod/ACETAM 7.5 MG/325 MG TABLET PO PRN ×3 (06:49→22:17)
[2022-02-23] MEDS: PANTOPRAZOLE 40 MG TABLET PO SCH (06:49)
[2022-02-23 07:02] LABS: BILIRUBIN,URINE NEGATIVE (NEGATIVE); GLUCOSE, URINE (UA) NEGATIVE (NEGATIVE); KETONES,URINE (UA) NEGATIVE (NEGATIVE); LEUKOCYTE ESTERASE, URINE NEGATIVE (NEGATIVE); NITRITE,URINE NEGATIVE (NEGATIVE); OCCULT BLOOD,URINE NEGATIVE (NEGATIVE); PROTEIN,URINE NEGATIVE (NEGATIVE); UROBILINOGEN,URINE 0.2 (NORMAL) E.U./dL (NORMAL)
[2022-02-23 07:10] LABS: BACTERIA,URINE None Seen /HPF (None Seen); CLARITY,URINE CLEAR (CLEAR); RBC,URINE 0-5 /HPF (0-5); SQUAMOUS EPITHELIAL CELL,UR RARE Squamous (<= Few); WBC,URINE 0-3 /HPF (0-5)
[2022-02-23] MEDS: CALCIUM CARBONATE CHEW 500 MG TABLET PO SCH ×3 (10:26→22:18)
[2022-02-23] MEDS: lisinopriL 20 MG TABLET PO SCH (10:27)
[2022-02-23] MEDS: PROPRANOLOL 40 MG TABLET PO SCH (10:27)
[2022-02-23] MEDS: buPROPion SR 150 MG TABLET PO SCH (10:27)
[2022-02-23] MEDS: ASPIRIN EC 81 MG TABLET PO SCH ×2 (10:27→22:16)
[2022-02-23] MEDS: POTASSIUM CHLORIDE 10 MEQ CAPSULE PO SCH ×2 (10:27→22:17)
[2022-02-23] MEDS: CYCLOBENZAPRINE 10 MG TABLET PO SCH ×2 (10:28→22:17)
[2022-02-23] MEDS: CHOLECALCIFEROL 25 MCG TABLET PO SCH (10:28)
[2022-02-23] MEDS: CELECOXIB 100 MG CAPSULE PO SCH ×2 (10:28→22:17)
[2022-02-23] MEDS: ethyl alcohoL 62% SWAB AMPULE NAS SCH ×2 (10:29→22:17)
[2022-02-23] MEDS: polyethylene glycoL 3350 17 GM PACKET PO SCH (10:29)
[2022-02-23] MEDS: SENNA 8.6 MG TABLET PO SCH (10:29)
[2022-02-23 11:59] LABS: ESTIMATED AVERAGE GLUCOSE 126 mg/dL (70-100)
[2022-02-23] MEDS: GABAPENTIN 300 MG CAPSULE PO SCH ×2 (14:16→22:16)
--- NOTE | 2022-02-23 15:16 | PROVIDER PROGRESS NOTE ---
Assessment/Plan - Problem List (1) Hip joint painful on movement Assessment/Plan: Because of needing to go to the OR repeatedly for several procedures, now needing to wear a brace, she needs to start PT rehab. She has pain with weightbearing. Her pain control improved after the changes in pain meds Plan: Continue with the aspirin and NSAIDs scheduled We stopped the very high-dose of prn Tylenol 1000mg q6h. We combined her Tylenol and narcotic dosing to Acetaminophen/hydrocodone as needed for pain. The dose was decreased yestwerday, after we saw her confusion Also, being on scheduled ASA and Celoxicab, she needs to be on Protonix, to prevent a gastric ulcer. I ordered this. 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 PT and OT wanted clarification as to whether she could take a shower, and Ortho PA said No, she must get a sponge bath and shampoo in bed. Plan: Management as per Ortho. SW has found a SNF to accept this patient, for PT and OT rehab. Pt is agreeable to go to [facility] in [place], [place]. (3) Essential tremor Impression: Today, I asked about this visible but intermittent tremor and she reported that it is a familial essential tremor, for which she is on Propranolol and stopping caffeine years ago helped decrease it a little. OPlan: Continue with her usual medical management. (4) Hyperglycemia Several fasting a.m. labs revealed mildly elevated glu > 100. Plan: Checking an A1c is advised If A1c is >7, starting a Diabetic diet and Diabetic education would need to be ordered. (5) HTN Impression: Blood pressure is well controlled on her present meds Plan: Continue present BP meds (6) Hypoxia Impression: She has some documented saturations on room air of 90%, which is borderline low unless she was a smoker. Plan: Check a CXR If she has atelectasis, as I suspect due to wearing the body brace, she needs more aggressive pulmonary toilet, and Incentive Spirometry TID>> Incentive Spirometry ordered and she needs to be [facility] on this (7) Hypokalemia Impression: Improved Yesterday routine labs showed she was severely hypokalemic with a K of 3.0. It was replaced orally Plan: Check a serum magnesium level, which is often low when potassium is low. Follow BMP daily til electrolytes are stable. (8) Confusion Resolved Yesterday the pt claimed she had not been updated about her rehab locations and choices, had forgotten about speaking with SW., demanded to be seen by an Admin istrator, and she started to complain about being discharged to rehab. Because this was altered mental status for her, she was not ready for discharge. We ordered a head CT to check for neurologic event but she refused the CT. We felt that her AMS was caused by meds. Therefore, her sleeping med was stopped. Her narcotic doses were all decreased or dosing spread apart. These changes have improved her mentation and she is back to her baseline today. Plan: The discharge yesterday to [facility] for PT and OT rehab was postponed. Continue with the present lower narcotic doses. - Current Meds Current Meds: Current Medications Generic Name Dose Route Start Last Admin Trade Name Freq PRN Reason Stop Dose Admin Hydrocodone Bitart/Acetaminophen 1 tab 02/22/22 17:33 02/23/22 14:16 Hydrocod/Acetam 7.5 Mg/325 Mg Tablet PO 1 tab Q6HR PRN Administration PAIN Alcohol 1 amp 02/13/22 21:00 02/23/22 10:29 Ethyl Alcohol 62% Swab Ampule SETH 1 amp BID AKI Administration Aspirin 81 mg 02/14/22 09:00 02/23/22 10:27 Aspirin Ec 81 Mg Tablet PO 81 mg BID AKI Administration Bupropion HCl 300 mg 02/13/22 15:00 02/23/22 10:27 Bupropion Sr 150 Mg Tablet PO 300 mg DAILY AKI Administration Calcium Carbonate/Glycine 500 mg 02/20/22 21:00 02/23/22 10:26 Calcium Carbonate Chew 500 Mg Tablet PO 500 mg BID AKI Administration Celecoxib 200 mg 02/13/22 21:00 02/23/22 10:28 Celecoxib 100 Mg Capsule PO 200 mg BID AKI Administration Cholecalciferol 50 mcg 02/21/22 09:00 02/23/22 10:28 Cholecalciferol 25 Mcg Tablet PO 50 mcg DAILY AKI Administration Cyclobenzaprine HCl 10 mg 02/22/22 21:00 02/23/22 10:28 Cyclobenzaprine 10 Mg Tablet PO 10 mg BID AKI Administration Docusate Sodium 100 mg 02/13/22 11:52 02/15/22 09:09 Docusate Sodium 100 Mg Capsule PO 100 mg BID PRN Administration Constipation Gabapentin 600 mg 02/16/22 22:00 02/22/22 20:44 Gabapentin 300 Mg Capsule PO 600 mg QPM AKI Administration Gabapentin 300 mg 02/17/22 14:00 02/23/22 14:16 Gabapentin 300 Mg Capsule PO 300 mg 1400 AKI Administration Lisinopril 40 mg 02/17/22 09:00 02/23/22 10:27 Lisinopril 20 Mg Tablet PO 40 mg DAILY AKI Administration Pantoprazole Sodium 40 mg 02/22/22 08:00 02/23/22 06:49 Pantoprazole 40 Mg Tablet PO 40 mg QDAC AKI Administration Polyethylene Glycol 17 gm 02/22/22 09:00 02/23/22 10:29 Polyethylene Glycol 3350 17 Gm Packet PO Not Given DAILY AKI Potassium Chloride 20 meq 02/21/22 12:00 02/23/22 10:27 Potassium Chloride 10 Meq Capsule PO 20 meq BID AKI Administration Propranolol HCl 80 mg 02/13/22 15:00 02/23/22 10:27 Propranolol 40 Mg Tablet PO 80 mg DAILY AKI Administration Senna 8.6 - 17.2 mg 02/22/22 09:00 02/23/22 10:29 Senna 8.6 Mg Tablet PO Not Given DAILY AKI Simethicone 80 mg 02/15/22 14:46 02/21/22 15:40 Simethicone Chew 80 Mg Tablet PO 80 mg Q6HR PRN Administration GAS Sodium Chloride 10 ml 02/13/22 17:00 02/23/22 10:29 Sodium Chloride Flush 0.9% 10 Ml Syringe IVP 10 ml 0100,0900,1700 AKI Administration Sodium Chloride 10 ml 02/13/22 11:52 02/16/22 10:44 Sodium Chloride Flush 0.9% 10 Ml Syringe IVP 10 ml PRN PRN Administration NEEDED PER PROVIDER ORDERS - Lab Result Fish Bone Diagrams: 02/21/22 09:33 02/22/22 04:46 - Additional Planning My Orders: My Active Orders 02/22/22 17:33 HYDROcodone/ACET 7.5/325 [[place] 7.5/325] 1 tab PO Q6HR PRN 02/22/22 17:35 fentaNYL 12.5 mcg IVP Q6HR PRN 02/22/22 21:00 Cyclobenzaprine [Flexeril] 10 mg PO BID Subjective - Subjective Patient Reports: Feeling Better (She got up with a nurse that knows how to help her with movement, because she has the body brace on since last surgery) Objective Vital Signs: Vital Signs - 24 hr 02/22/22 02/23/22 02/23/22 15:57 00:21 07:37 Temperature 36.5 C 36.3 C L 36.6 C Heart Rate [ 59 L 54 L 60 Brachial] Respiratory 18 16 16 Rate Blood Pressure 117/81 H 96/61 112/67 [Right Brachial artery] O2 Saturation 95 93 94 02/23/22 14:44 Temperature 36.4 C L Heart Rate [ 58 L Brachial] Respiratory 18 Rate Blood Pressure 116/66 [Right Brachial artery] O2 Saturation 98 Oxygen O2 Source Room air I&O (Last 24 Hrs): Intake and Output Totals x24h 02/21/22 02/22/22 02/23/22 23:59 23:59 23:59 Intake Total 1340 1310 576 Output Total 1400 2075 1525 Balance -60 -719 -94 General: Alert, Oriented x3 HEENT: Atraumatic, Mucous membr. moist/pink Neck: Supple, No JVD Neuro: Alert, Other (Tremor of hands and lower jaw intermittently) Cardiovascular: Regular rate Respiratory: No respiratory distress Abdomen: Soft Extremities: No clubbing, No edema - Results Results: Laboratory Results WBC 8.1 x10^3/uL (4.8-10.8) 02/21/22 09:33 RBC 3.44 10^6/uL (4.20-5.40) L 02/21/22 09:33 Hgb 10.1 g/dL (12.0-16.0) L 02/21/22 09:33 Hct 31.8 % (37.0-47.0) L 02/21/22 09:33 MCV 92.4 fL (81.0-99.0) 02/21/22 09:33 MCH 29.4 pg (27.0-31.0) 02/21/22 09:33 MCHC 31.8 g/dL (32.0-36.0) L 02/21/22 09:33 RDW 14.6 % (12.0-15.0) 02/21/22 09:33 Plt Count 450 10^3/uL (130-450) 02/21/22 09:33 MPV 9.4 fL (7.9-10.8) 02/21/22 09:33 Neut # (Auto) 5.7 10^3/uL (1.5-6.6) 02/21/22 09:33 Lymph # (Auto) 1.4 10^3/uL (1.5-3.5) L 02/21/22 09:33 [place] # (Auto) 0.6 10^3/uL (0.0-1.0) 02/21/22 09:33 Eos # (Auto) 0.4 10^3/uL (0.0-0.7) 02/21/22 09:33 Baso # (Auto) 0.0 10^3/uL (0.0-0.1) 02/21/22 09:33 Absolute Nucleated RBC 0.00 x10^3/uL 02/21/22 09:33 Nucleated RBC % 0.0 /100WBC 02/21/22 09:33 Sodium 140 mmol/L (135-145) 02/22/22 04:46 Potassium 4.0 mmol/L (3.5-5.0) 02/22/22 04:46 Chloride 104 mmol/L (101-111) 02/22/22 04:46 Carbon Dioxide 28 mmol/L (21-32) 02/22/22 04:46 Anion Gap 8.0 (6-13) 02/22/22 04:46 BUN 20 mg/dL (6-20) 02/22/22 04:46 Creatinine 0.8 mg/dL (0.4-1.0) 02/22/22 04:46 Estimated GFR (MDRD) 71 (>89) L 02/22/22 04:46 Glucose 128 mg/dL (70-100) H 02/22/22 04:46 POC Whole Bld Glucose 107 mg/dL (70 - 100) H 02/13/22 07:13 Estimat Average Glucose 126 mg/dL (70-100) H 02/23/22 05:58 Hemoglobin A1c % 6.0 % (4.27-6.07) 02/23/22 05:58 Calcium 9.0 mg/dL (8.5-10.3) 02/22/22 04:46 Magnesium 1.8 mg/dL (1.7-2.8) 02/22/22 04:46 Total Bilirubin 0.7 mg/dL (0.2-1.0) 02/21/22 09:33 AST 19 IU/L (10-42) 02/21/22 09:33 ALT 18 IU/L (10-60) 02/21/22 09:33 Alkaline Phosphatase 97 IU/L (42-121) 02/21/22 09:33 Total Protein 5.8 g/dL (6.7-8.2) L 02/21/22 09:33 Albumin 2.7 g/dL (3.2-5.5) L 02/21/22 09:33 Globulin 3.1 g/dL (2.1-4.2) 02/21/22 09:33 Albumin/Globulin Ratio 0.9 (1.0-2.2) L 02/21/22 09:33 Urine Color YELLOW 02/22/22 06:40 Urine Clarity CLEAR (CLEAR) 02/22/22 06:40 Urine pH 6.0 PH (5.0-7.5) 02/22/22 06:40 Ur Specific [place] 1.015 (1.002-1.030) 02/22/22 06:40 Urine Protein NEGATIVE mg/dL (NEGATIVE) 02/22/22 06:40 Urine Glucose (UA) NEGATIVE mg/dL (NEGATIVE) 02/22/22 06:40 Urine Ketones NEGATIVE mg/dL (NEGATIVE) 02/22/22 06:40 Urine Occult Blood NEGATIVE (NEGATIVE) 02/22/22 06:40 Urine Nitrite NEGATIVE (NEGATIVE) 02/22/22 06:40 Urine Bilirubin NEGATIVE (NEGATIVE) 02/22/22 06:40 Urine Urobilinogen 0.2 (NORMAL) E.U./dL (NORMAL) 02/22/22 06:40 Ur Leukocyte Esterase NEGATIVE (NEGATIVE) 02/22/22 06:40 Urine RBC 0-5 /HPF (0-5) 02/22/22 06:40 Urine WBC 0-3 /HPF (0-5) 02/22/22 06:40 Ur Squamous Epith Cells RARE Squamous (<= Few) 02/22/22 06:40 Urine Bacteria None Seen /HPF (None Seen) 02/22/22 06:40 Urine Culture Comments NOT INDICATED 02/22/22 06:40 SARS-CoV-2 (PCR) NOT DETECTED 02/22/22 11:25
--- NOTE | 2022-02-23 16:42 | PROVIDER PROGRESS NOTE ---
Subjective - General Admit Date: 02/15/22 Procedure Date: 02/16/22 Post Op Days: 7 Procedure Performed: Right total hip arthroplasty, Close reduction dislocated right total hip - Review of Systems Wound/Incisions: positive: Dressing dry and intact, No drainage General: positive: No symptoms, Appetite. negative: Fever, Weakness, Chills Pulmonary: negative: Shortness of breath, Pleuritic chest pain Cardiovascular: negative: Chest pain Gastrointestinal: positive: No symptoms. negative: Nausea, Vomiting - Other Other Information/Narrative: Alert, lying in bed, recumbent position She denies chest pain, fever, chills, difficulty breathing She reports some pain in the right groin, pain increases with weightbearing She voices concern about potential dislocation with ambulation She asks many questions about how discharged to a [facility] facility is carried out, and how records and medications are transferred. We discussed this in detail. Objective - Patient Data Vital Signs: Vital Signs x48h Temp Pulse Resp BP Pulse Ox 02/23/22 14:44 36.4 C L 58 L 18 116/66 98 Intake & Output: Intake and Output Totals x24h 02/21/22 02/22/22 02/23/22 23:59 23:59 23:59 Intake Total 1340 1310 576 Output Total 1400 2075 1525 Balance -60 -765 -949 - Lab Results Lab Results: 02/21/22 09:33 02/22/22 04:46 Other Lab Results: Lab Results x24hrs 02/23/22 02/22/22 Range/Units 05:58 06:40 Estimat Average Glucose 126 H (70-100) mg/dL Hemoglobin A1c % 6.0 (4.27-6.07) % Urine Color YELLOW Urine Clarity CLEAR (CLEAR) Urine pH 6.0 (5.0-7.5) PH Ur Specific [place] 1.015 (1.002-1.030) Urine Protein NEGATIVE (NEGATIVE) mg/dL Urine Glucose (UA) NEGATIVE (NEGATIVE) mg/dL Urine Ketones NEGATIVE (NEGATIVE) mg/dL Urine Occult Blood NEGATIVE (NEGATIVE) Urine Nitrite NEGATIVE (NEGATIVE) Urine Bilirubin NEGATIVE (NEGATIVE) Urine Urobilinogen 0.2 (NORMAL) (NORMAL) E.U./dL Ur Leukocyte Esterase NEGATIVE (NEGATIVE) Urine RBC 0-5 (0-5) /HPF Urine WBC 0-3 (0-5) /HPF Ur Squamous Epith Cells RARE Squamous (<= Few) Urine Bacteria None Seen (None Seen) /HPF Urine Culture Comments NOT INDICATED - Current Medications Current Medications: Current Medications Generic Name Dose Route Start Last Admin Trade Name Freq PRN Reason Stop Dose Admin Hydrocodone Bitart/Acetaminophen 1 tab 02/22/22 17:33 02/23/22 14:16 Hydrocod/Acetam 7.5 Mg/325 Mg Tablet PO 1 tab Q6HR PRN Administration PAIN Alcohol 1 amp 02/13/22 21:00 02/23/22 10:29 Ethyl Alcohol 62% Swab Ampule SETH 1 amp BID AKI Administration Aspirin 81 mg 02/14/22 09:00 02/23/22 10:27 Aspirin Ec 81 Mg Tablet PO 81 mg BID AKI Administration Bupropion HCl 300 mg 02/13/22 15:00 02/23/22 10:27 Bupropion Sr 150 Mg Tablet PO 300 mg DAILY AKI Administration Calcium Carbonate/Glycine 500 mg 02/20/22 21:00 02/23/22 10:26 Calcium Carbonate Chew 500 Mg Tablet PO 500 mg BID AKI Administration Celecoxib 200 mg 02/13/22 21:00 02/23/22 10:28 Celecoxib 100 Mg Capsule PO 200 mg BID AKI Administration Cholecalciferol 50 mcg 02/21/22 09:00 02/23/22 10:28 Cholecalciferol 25 Mcg Tablet PO 50 mcg DAILY AKI Administration Cyclobenzaprine HCl 10 mg 02/22/22 21:00 02/23/22 10:28 Cyclobenzaprine 10 Mg Tablet PO 10 mg BID AKI Administration Docusate Sodium 100 mg 02/13/22 11:52 02/15/22 09:09 Docusate Sodium 100 Mg Capsule PO 100 mg BID PRN Administration Constipation Gabapentin 600 mg 02/16/22 22:00 02/22/22 20:44 Gabapentin 300 Mg Capsule PO 600 mg QPM AKI Administration Gabapentin 300 mg 02/17/22 14:00 02/23/22 14:16 Gabapentin 300 Mg Capsule PO 300 mg 1400 AKI Administration Lisinopril 40 mg 02/17/22 09:00 02/23/22 10:27 Lisinopril 20 Mg Tablet PO 40 mg DAILY AKI Administration Pantoprazole Sodium 40 mg 02/22/22 08:00 02/23/22 06:49 Pantoprazole 40 Mg Tablet PO 40 mg QDAC AKI Administration Polyethylene Glycol 17 gm 02/22/22 09:00 02/23/22 10:29 Polyethylene Glycol 3350 17 Gm Packet PO Not Given DAILY AKI Potassium Chloride 20 meq 02/21/22 12:00 02/23/22 10:27 Potassium Chloride 10 Meq Capsule PO 20 meq BID AKI Administration Propranolol HCl 80 mg 02/13/22 15:00 02/23/22 10:27 Propranolol 40 Mg Tablet PO 80 mg DAILY AKI Administration Senna 8.6 - 17.2 mg 02/22/22 09:00 02/23/22 10:29 Senna 8.6 Mg Tablet PO Not Given DAILY AKI Simethicone 80 mg 02/15/22 14:46 02/21/22 15:40 Simethicone Chew 80 Mg Tablet PO 80 mg Q6HR PRN Administration GAS Sodium Chloride 10 ml 02/13/22 17:00 02/23/22 10:29 Sodium Chloride Flush 0.9% 10 Ml Syringe IVP 10 ml 0100,0900,1700 AKI Administration Sodium Chloride 10 ml 02/13/22 11:52 02/16/22 10:44 Sodium Chloride Flush 0.9% 10 Ml Syringe IVP 10 ml PRN PRN Administration NEEDED PER PROVIDER ORDERS - Physical Exam Wound/Incisions: positive: Healing well, Dressing dry and intact, No drainage General Appearance: positive: No acute distress, Alert Neurologic/Psychiatric: positive: Oriented x3 Comments/Other: Right hip Mepilex dressing, dry and intact Brace in place on right hip Good alignment of patella, no shortening or external rotation of right foot Neurovascularly intact to right lower extremity Consistent knee flexion and extension with brace in place ABX Reporting Has patient been on IV antibiotics over the past 48 hours?: No Impression/Plan - Problem List Problem List: 66-year-old female admitted for complication of right total hip arthroplasty with 2 dislocations who underwent successful reduction twice under anesthesia. She now remains in a brace orthosis with good effect and no recurrent dislocations. She has been out of bed to the commode with the help of physical therapy and Occupational Therapy. Disposition is awaiting discharge to [facility] facility, she has been accepted by [facility] in [facility] with a plan for discharge 02/25/2022. Today she has many questions about how discharge to a [facility] facility occurs. We discussed in detail that her hip precautions and current medications will all be sent to the [facility] to ensure continuity of care. She is nervous for potential dislocation, however she is interested in sitting on the edge of the bed and potentially standing and walking today with the assist of nursing staff. Her pain appears well controlled with new pain regimen per hospitalist physician. Restoril was discontinued to ensure it was not contributing to confusion. [facility] facility is most appropriate for discharge as she will need several weeks of physical and occupational therapy. The brace will remain in place until discontinued by her orthopedic surgeon Dr. Nunez. Plan: -Awaiting discharge for Friday to [facility] in [place] -Weightbearing status: Weightbearing as tolerated with front wheeled walker with hip abduction brace in place. Physical therapy and Occupational Therapy working with patient to ensure safe ambulation. -Activity restrictions: No external rotation, active abduction or abduction of right lower extremity -Pain regimen as per hospitalist physician, tolerating pain well with decreased narcotics yesterday -Continue DVT prophylaxis of 81 mg of aspirin twice daily for 6 weeks after surgery -Hospitalist expertise utilized to manage other medical comorbidities including hypertension, stroke intestinal bleeding prophylaxis, restless leg syndrome, episodes of desaturation, essential tremor and hypokalemia.
[2022-02-24] MEDS: HYDROcod/ACETAM 7.5 MG/325 MG TABLET PO PRN ×3 (07:53→21:50)
[2022-02-24] MEDS: PANTOPRAZOLE 40 MG TABLET PO SCH (07:53)
[2022-02-24] MEDS: ethyl alcohoL 62% SWAB AMPULE NAS SCH ×2 (08:36→21:50)
[2022-02-24] MEDS: POTASSIUM CHLORIDE 10 MEQ CAPSULE PO SCH ×2 (08:36→21:50)
[2022-02-24] MEDS: CYCLOBENZAPRINE 10 MG TABLET PO SCH ×2 (08:36→21:50)
[2022-02-24] MEDS: lisinopriL 20 MG TABLET PO SCH (08:37)
[2022-02-24] MEDS: PROPRANOLOL 40 MG TABLET PO SCH (08:37)
[2022-02-24] MEDS: buPROPion SR 150 MG TABLET PO SCH (08:37)
[2022-02-24] MEDS: CELECOXIB 100 MG CAPSULE PO SCH ×2 (08:37→21:49)
[2022-02-24] MEDS: CHOLECALCIFEROL 25 MCG TABLET PO SCH (08:38)
[2022-02-24] MEDS: ASPIRIN EC 81 MG TABLET PO SCH ×2 (08:38→21:50)
[2022-02-24] MEDS: polyethylene glycoL 3350 17 GM PACKET PO SCH (08:38)
[2022-02-24] MEDS: SENNA 8.6 MG TABLET PO SCH (08:38)
[2022-02-24] MEDS: SODIUM CHLORIDE FLUSH 0.9% 10 ML SYRINGE IVP SCH ×2 (08:39→16:19)
[2022-02-24] MEDS: CALCIUM CARBONATE CHEW 500 MG TABLET PO SCH ×2 (08:39→21:50)
[2022-02-24] MEDS: GABAPENTIN 300 MG CAPSULE PO SCH ×2 (14:50→21:50)
--- NOTE | 2022-02-24 15:05 | PROVIDER PROGRESS NOTE ---
Subjective - General Admit Date: 02/15/22 Procedure Date: 02/16/22 Post Op Days: 8 Procedure Performed: Right total hip arthroplasty, Close reduction dislocated right total hip - Review of Systems General: positive: No symptoms, Appetite. negative: Fever, Weakness, Chills Pulmonary: negative: Shortness of breath, Pleuritic chest pain Cardiovascular: negative: Chest pain Gastrointestinal: positive: No symptoms. negative: Nausea, Vomiting - Other Other Information/Narrative: Sleeping comfortably in bed, alone in room No change in pain, continues to be well controlled She is looking forward to a sponge bath today We discussed plan for discharge to residential facility tomorrow 02/25/2022, patient is still agreeable No chest pain, dyspnea, fever, chills, nausea, vomiting Objective - Patient Data Vital Signs: Vital Signs x48h Temp Pulse Resp BP Pulse Ox 02/24/22 14:31 36.7 C 59 L 16 116/67 94 02/24/22 07:37 36.7 C 63 16 122/68 90 L Intake & Output: Intake and Output Totals x24h 02/22/22 02/23/22 02/24/22 23:59 23:59 23:59 Intake Total 1310 1166 530 Output Total 2075 5595 250 Balance -765 -7044 280 - Lab Results Lab Results: 02/21/22 09:33 02/22/22 04:46 - Current Medications Current Medications: Current Medications Generic Name Dose Route Start Last Admin Trade Name Freq PRN Reason Stop Dose Admin Hydrocodone Bitart/Acetaminophen 1 tab 02/22/22 17:33 02/24/22 14:49 Hydrocod/Acetam 7.5 Mg/325 Mg Tablet PO 1 tab Q6HR PRN Administration PAIN Alcohol 1 amp 02/13/22 21:00 02/24/22 08:36 Ethyl Alcohol 62% Swab Ampule SETH 1 amp BID AKI Administration Aspirin 81 mg 02/14/22 09:00 02/24/22 08:38 Aspirin Ec 81 Mg Tablet PO 81 mg BID AKI Administration Bupropion HCl 300 mg 02/13/22 15:00 02/24/22 08:37 Bupropion Sr 150 Mg Tablet PO 300 mg DAILY AKI Administration Calcium Carbonate/Glycine 500 mg 02/20/22 21:00 02/24/22 08:39 Calcium Carbonate Chew 500 Mg Tablet PO 500 mg BID AKI Administration Celecoxib 200 mg 02/13/22 21:00 02/24/22 08:37 Celecoxib 100 Mg Capsule PO 200 mg BID AKI Administration Cholecalciferol 50 mcg 02/21/22 09:00 02/24/22 08:38 Cholecalciferol 25 Mcg Tablet PO 50 mcg DAILY AKI Administration Cyclobenzaprine HCl 10 mg 02/22/22 21:00 02/24/22 08:36 Cyclobenzaprine 10 Mg Tablet PO 10 mg BID AKI Administration Docusate Sodium 100 mg 02/13/22 11:52 02/15/22 09:09 Docusate Sodium 100 Mg Capsule PO 100 mg BID PRN Administration Constipation Gabapentin 600 mg 02/16/22 22:00 02/23/22 22:16 Gabapentin 300 Mg Capsule PO 600 mg QPM AKI Administration Gabapentin 300 mg 02/17/22 14:00 02/24/22 14:50 Gabapentin 300 Mg Capsule PO 300 mg 1400 AKI Administration Lisinopril 40 mg 02/17/22 09:00 02/24/22 08:37 Lisinopril 20 Mg Tablet PO 40 mg DAILY AKI Administration Pantoprazole Sodium 40 mg 02/22/22 08:00 02/24/22 07:53 Pantoprazole 40 Mg Tablet PO 40 mg QDAC AKI Administration Polyethylene Glycol 17 gm 02/22/22 09:00 02/24/22 08:38 Polyethylene Glycol 3350 17 Gm Packet PO Not Given DAILY AKI Potassium Chloride 20 meq 02/21/22 12:00 02/24/22 08:36 Potassium Chloride 10 Meq Capsule PO 20 meq BID AKI Administration Propranolol HCl 80 mg 02/13/22 15:00 02/24/22 08:37 Propranolol 40 Mg Tablet PO 80 mg DAILY AKI Administration Senna 8.6 - 17.2 mg 02/22/22 09:00 02/24/22 08:38 Senna 8.6 Mg Tablet PO Not Given DAILY AKI Simethicone 80 mg 02/15/22 14:46 02/21/22 15:40 Simethicone Chew 80 Mg Tablet PO 80 mg Q6HR PRN Administration GAS Sodium Chloride 10 ml 02/13/22 17:00 02/24/22 08:39 Sodium Chloride Flush 0.9% 10 Ml Syringe IVP 10 ml 0100,0900,1700 AKI Administration Sodium Chloride 10 ml 02/13/22 11:52 02/16/22 10:44 Sodium Chloride Flush 0.9% 10 Ml Syringe IVP 10 ml PRN PRN Administration NEEDED PER PROVIDER ORDERS - Physical Exam Wound/Incisions: positive: Dressing dry and intact, No drainage General Appearance: positive: No acute distress, Alert Neurologic/Psychiatric: positive: Oriented x3 Comments/Other: No significant change in physical exam, dressing continues to be dry and intact. Right patella aligns anatomically with right foot and hip. Brace orthosis r emains in place, skin still marked with correct location of brace. Neurovascularly intact. No change in range of motion since yesterday ABX Reporting Has patient been on IV antibiotics over the past 48 hours?: No Impression/Plan - Problem List Problem List: 66-year-old female who was admitted after 2 dislocations of right hip after total hip arthroplasty on 02/13/2022. Her right hip was reduced twice under anesthesia successfully by Dr. Nunez at [facility]. She co ntinues to have good pain control on current regimen without nausea or vomiting and tolerating an oral diet. Plan is for discharge tomorrow to residential facility. Plan: -Weightbearing as tolerated with front wheeled walker, hip abduction brace to remain in place at all times. -Mobility restrictions: No active abduction, external rotation or adduction of right hip -DVT prophylaxis: 81 mg of aspirin twice daily for 6 weeks from date of surgery -Hip abduction brace to remain in place until directed otherwise by orthopedic surgeon -Pain control per hospitalist -Appreciate hospitalist input on management of other medical comorbidities -Plan for discharge tomorrow to [facility] -Mepilex dressing to remain in place until it falls off, Dermabond underneath Mepilex dressing will also fall off on its own. Absorbable sutures in place
[2022-02-25] MEDS: SODIUM CHLORIDE FLUSH 0.9% 10 ML SYRINGE IVP SCH ×2 (04:04→08:17)
[2022-02-25] MEDS: PANTOPRAZOLE 40 MG TABLET PO SCH (05:05)
[2022-02-25] MEDS: HYDROcod/ACETAM 7.5 MG/325 MG TABLET PO PRN (05:05)
[2022-02-25 08:13] VITALS: BP 120/77
[2022-02-25] MEDS: buPROPion SR 150 MG TABLET PO SCH (08:16)
[2022-02-25] MEDS: lisinopriL 20 MG TABLET PO SCH (08:16)
[2022-02-25] MEDS: ethyl alcohoL 62% SWAB AMPULE NAS SCH (08:16)
[2022-02-25] MEDS: PROPRANOLOL 40 MG TABLET PO SCH (08:16)
[2022-02-25] MEDS: polyethylene glycoL 3350 17 GM PACKET PO SCH (08:16)
[2022-02-25] MEDS: CHOLECALCIFEROL 25 MCG TABLET PO SCH (08:16)
[2022-02-25] MEDS: POTASSIUM CHLORIDE 10 MEQ CAPSULE PO SCH (08:16)
[2022-02-25] MEDS: CYCLOBENZAPRINE 10 MG TABLET PO SCH (08:16)
[2022-02-25] MEDS: ASPIRIN EC 81 MG TABLET PO SCH (08:16)
[2022-02-25] MEDS: SENNA 8.6 MG TABLET PO SCH (08:16)
[2022-02-25] MEDS: CALCIUM CARBONATE CHEW 500 MG TABLET PO SCH (08:16)
[2022-02-25] MEDS: CELECOXIB 100 MG CAPSULE PO SCH (08:16)
[2022-02-25 09:47] LABS: BASOPHILS # (AUTO) 0.1 10^3/uL (0.0-0.1); BASOPHILS % (AUTO) 0.5 %; EOSINOPHILS # (AUTO) 0.3 10^3/uL (0.0-0.7); EOSINOPHILS % (AUTO) 2.6 %; HCT - HEMATOCRIT 36.8 % (37.0-47.0); HGB - HEMOGLOBIN 11.6 g/dL (12.0-16.0); LYMPHOCYTES # (AUTO) 1.3 10^3/uL (1.5-3.5); LYMPHOCYTES % (AUTO) 11.2 %; MEAN CORPUSCULAR HEMOGLOBIN 28.6 pg (27.0-31.0); MEAN CORPUSCULAR HGB CONC 31.5 g/dL (32.0-36.0); MEAN CORPUSCULAR VOLUME 90.9 fL (81.0-99.0); MEAN PLATELET VOLUME 9.3 fL (7.9-10.8); MONOCYTES # (AUTO) 0.8 10^3/uL (0.0-1.0); MONOCYTES % (AUTO) 6.8 %; NEUTROPHILS # (AUTO) 8.9 10^3/uL (1.5-6.6); NEUTROPHILS % (AUTO) 78.4 %; PLT - PLATELET COUNT 558 10^3/uL (130-450); RED BLOOD COUNT 4.05 10^6/uL (4.20-5.40); RED CELL DISTRIBUTION WIDTH 14.4 % (12.0-15.0); WHITE BLOOD COUNT 11.4 x10^3/uL (4.8-10.8)
[2022-02-25 10:02] LABS: BILIRUBIN,URINE NEGATIVE (NEGATIVE); GLUCOSE, URINE (UA) NEGATIVE (NEGATIVE); KETONES,URINE (UA) NEGATIVE (NEGATIVE); LEUKOCYTE ESTERASE, URINE NEGATIVE (NEGATIVE); NITRITE,URINE NEGATIVE (NEGATIVE); OCCULT BLOOD,URINE SMALL (NEGATIVE); PH,URINE 7.5 PH (5.0-7.5); PROTEIN,URINE NEGATIVE (NEGATIVE); UROBILINOGEN,URINE 0.2 (NORMAL) E.U./dL (NORMAL)
[2022-02-25 10:04] LABS: CLARITY,URINE CLEAR (CLEAR)
[2022-02-25 10:12] LABS: BACTERIA,URINE Few /HPF (None Seen); RBC,URINE 0-5 /HPF (0-5); SQUAMOUS EPITHELIAL CELL,UR NONE SEEN (<= Few); WBC,URINE 0-3 /HPF (0-5)
--- NOTE | 2022-02-25 10:28 | PROVIDER PROGRESS NOTE ---
Assessment/Plan - Problem List (1) Dysuria Assessment/Plan: She reported this today only. She has had no fever. Plan: Obtain a STAT U/A and STAT CBC. If WBC elevated and/or if U/A shows bacteria (in a good urine sample without many squamous cels), she needs to be started on a course of antibiotics: which can be 1 week of Keflex or 5 days of Bactrim DS. If her "burning" does not resolve quickly with that management, add Pyridium. This was communicated to [facility] RN and to Orthopedic PA Dixie. (2) Hip joint painful on movement Assessment/Plan: Because of needing to go to the OR repeatedly for several procedures, now needing to wear a brace, she needs to start PT rehab. She has pain with weightbearing. Her pain is controlled on pain meds Plan: Continue with present meds for pain control. Also, being on scheduled ASA and Celoxicab, she needs to be on Protonix, to prevent a gastric ulcer. I ordered this. 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 PT and OT wanted clarification as to whether she could take a shower, and Ortho PA said No, she must get a sponge bath and shampoo in bed. Plan: Management as per Ortho. has found a SNF to accept this patient, for PT and OT rehab. Pt is agreeable to go to [facility] in [place], [place]. (4) Essential tremor Impression: She has a visible but intermittent tremor and she reported that it is a familial essential tremor, for which she is on Propranolol and that stopping caffeine years ago helped decrease it a little. Plan: Continue with her usual medical management. (5) Hyperglycemia Impression: Several fasting a.m. labs revealed mildly elevated glu > 100. We checked an A1c and it was normal at 6.0 (6) HTN Impression: Blood pressure is well controlled on her present meds Plan: Continue present BP meds (7) Hypoxia Impression: She has some documented saturations on room air of 90%, which is borderline low unless she was a smoker. We checked a CXR was unremarkable. Plan: I suspect she is splinting, due to wearing the body brace, and advised that she needs more aggressive pulmonary toilet, and Incentive Spirometry TID>> Incentive Spirometry ordered and she needs to be [facility] on this (8) Hypokalemia Impression: Resolved after replaced (9) Confusion Impression: Resolved after sleeping meds stopped and narcotic doses lowere and spread out. - Current Meds Current Meds: Current Medications Generic Name Dose Route Start Last Admin Trade Name Freq PRN Reason Stop Dose Admin Hydrocodone Bitart/Acetaminophen 1 tab 02/22/22 17:33 02/25/22 05:05 Hydrocod/Acetam 7.5 Mg/325 Mg Tablet PO 1 tab Q6HR PRN Administration PAIN Alcohol 1 amp 02/13/22 21:00 02/25/22 08:16 Ethyl Alcohol 62% Swab Ampule SETH 1 amp BID AKI Administration Aspirin 81 mg 02/14/22 09:00 02/25/22 08:16 Aspirin Ec 81 Mg Tablet PO 81 mg BID AKI Administration Bupropion HCl 300 mg 02/13/22 15:00 02/25/22 08:16 Bupropion Sr 150 Mg Tablet PO 300 mg DAILY AKI Administration Calcium Carbonate/Glycine 500 mg 02/20/22 21:00 02/25/22 08:16 Calcium Carbonate Chew 500 Mg Tablet PO 500 mg BID AKI Administration Celecoxib 200 mg 02/13/22 21:00 02/25/22 08:16 Celecoxib 100 Mg Capsule PO 200 mg BID AKI Administration Cholecalciferol 50 mcg 02/21/22 09:00 02/25/22 08:16 Cholecalciferol 25 Mcg Tablet PO 50 mcg DAILY AKI Administration Cyclobenzaprine HCl 10 mg 02/22/22 21:00 02/25/22 08:16 Cyclobenzaprine 10 Mg Tablet PO 10 mg BID AKI Administration Docusate Sodium 100 mg 02/13/22 11:52 02/15/22 09:09 Docusate Sodium 100 Mg Capsule PO 100 mg BID PRN Administration Constipation Gabapentin 600 mg 02/16/22 22:00 02/24/22 21:50 Gabapentin 300 Mg Capsule PO 600 mg QPM AKI Administration Gabapentin 300 mg 02/17/22 14:00 02/24/22 14:50 Gabapentin 300 Mg Capsule PO 300 mg 1400 AKI Administration Lisinopril 40 mg 02/17/22 09:00 02/25/22 08:16 Lisinopril 20 Mg Tablet PO 40 mg DAILY AKI Administration Pantoprazole Sodium 40 mg 02/22/22 08:00 02/25/22 05:05 Pantoprazole 40 Mg Tablet PO 40 mg QDAC AKI Administration Polyethylene Glycol 17 gm 02/22/22 09:00 02/25/22 08:16 Polyethylene Glycol 3350 17 Gm Packet PO Not Given DAILY AKI Potassium Chloride 20 meq 02/21/22 12:00 02/25/22 08:16 Potassium Chloride 10 Meq Capsule PO 20 meq BID AKI Administration Propranolol HCl 80 mg 02/13/22 15:00 02/25/22 08:16 Propranolol 40 Mg Tablet PO 80 mg DAILY AKI Administration Senna 8.6 - 17.2 mg 02/22/22 09:00 02/25/22 08:16 Senna 8.6 Mg Tablet PO 8.6 mg DAILY AKI Administration Simethicone 80 mg 02/15/22 14:46 02/21/22 15:40 Simethicone Chew 80 Mg Tablet PO 80 mg Q6HR PRN Administration GAS Sodium Chloride 10 ml 02/13/22 17:00 02/25/22 08:17 Sodium Chloride Flush 0.9% 10 Ml Syringe IVP 10 ml 0100,0900,1700 AKI Administration Sodium Chloride 10 ml 02/13/22 11:52 02/16/22 10:44 Sodium Chloride Flush 0.9% 10 Ml Syringe IVP 10 ml PRN PRN Administration NEEDED PER PROVIDER ORDERS - Lab Result Fish Bone Diagrams: 02/25/22 09:42 02/22/22 04:46 Subjective - Subjective Patient Reports: Other (She c/o dysuria and lower abdominal (above pelvic area) "pressure". Denies fever or chills.) Objective Vital Signs: Vital Signs - 24 hr 02/24/22 02/24/22 02/25/22 14:31 16:26 00:57 Temperature 36.7 C 36.7 C 36.5 C Heart Rate [ 59 L 87 63 Brachial] Respiratory 16 18 18 Rate Blood Pressure 116/67 121/70 132/80 H [Right Brachial artery] O2 Saturation 94 93 92 02/25/22 08:12 Temperature 37.0 C Heart Rate [ 80 Brachial] Respiratory 18 Rate Blood Pressure 120/77 [Right Brachial artery] O2 Saturation 92 Oxygen O2 Source Room air I&O (Last 24 Hrs): Intake and Output Totals x24h 02/23/22 02/24/22 02/25/22 23:59 23:59 23:59 Intake Total 1166 1280 480 Output Total 0285 850 600 Balance -1059 430 -120 General: Alert, Oriented x3 HEENT: Mucous membr. moist/pink Neck: Supple, No JVD Neuro: Alert, Other (Tremor of hands and lower jaw) Cardiovascular: Regular rate Respiratory: No respiratory distress Abdomen: Other (Has a brace on that covers most of abdomen) Extremities: No clubbing, No edema - Results Results: Laboratory Results WBC 11.4 x10^3/uL (4.8-10.8) H 02/25/22 09:42 RBC 4.05 10^6/uL (4.20-5.40) L 02/25/22 09:42 Hgb 11.6 g/dL (12.0-16.0) L 02/25/22 09:42 Hct 36.8 % (37.0-47.0) L 02/25/22 09:42 MCV 90.9 fL (81.0-99.0) 02/25/22 09:42 MCH 28.6 pg (27.0-31.0) 02/25/22 09:42 MCHC 31.5 g/dL (32.0-36.0) L 02/25/22 09:42 RDW 14.4 % (12.0-15.0) 02/25/22 09:42 Plt Count 558 10^3/uL (130-450) H 02/25/22 09:42 MPV 9.3 fL (7.9-10.8) 02/25/22 09:42 Neut # (Auto) 8.9 10^3/uL (1.5-6.6) H 02/25/22 09:42 Lymph # (Auto) 1.3 10^3/uL (1.5-3.5) L 02/25/22 09:42 Butler # (Auto) 0.8 10^3/uL (0.0-1.0) 02/25/22 09:42 Eos # (Auto) 0.3 10^3/uL (0.0-0.7) 02/25/22 09:42 Baso # (Auto) 0.1 10^3/uL (0.0-0.1) 02/25/22 09:42 Absolute Nucleated RBC 0.00 x10^3/uL 02/25/22 09:42 Nucleated RBC % 0.0 /100WBC 02/25/22 09:42 Sodium 140 mmol/L (135-145) 02/22/22 04:46 Potassium 4.0 mmol/L (3.5-5.0) 02/22/22 04:46 Chloride 104 mmol/L (101-111) 02/22/22 04:46 Carbon Dioxide 28 mmol/L (21-32) 02/22/22 04:46 Anion Gap 8.0 (6-13) 02/22/22 04:46 BUN 20 mg/dL (6-20) 02/22/22 04:46 Creatinine 0.8 mg/dL (0.4-1.0) 02/22/22 04:46 Estimated GFR (MDRD) 71 (>89) L 02/22/22 04:46 Glucose 128 mg/dL (70-100) H 02/22/22 04:46 POC Whole Bld Glucose 107 mg/dL (70 - 100) H 02/13/22 07:13 Estimat Average Glucose 126 mg/dL (70-100) H 02/23/22 05:58 Hemoglobin A1c % 6.0 % (4.27-6.07) 02/23/22 05:58 Calcium 9.0 mg/dL (8.5-10.3) 02/22/22 04:46 Magnesium 1.8 mg/dL (1.7-2.8) 02/22/22 04:46 Total Bilirubin 0.7 mg/dL (0.2-1.0) 02/21/22 09:33 AST 19 IU/L (10-42) 02/21/22 09:33 ALT 18 IU/L (10-60) 02/21/22 09:33 Alkaline Phosphatase 97 IU/L (42-121) 02/21/22 09:33 Total Protein 5.8 g/dL (6.7-8.2) L 02/21/22 09:33 Albumin 2.7 g/dL (3.2-5.5) L 02/21/22 09:33 Globulin 3.1 g/dL (2.1-4.2) 02/21/22 09:33 Albumin/Globulin Ratio 0.9 (1.0-2.2) L 02/21/22 09:33 Urine Color LT. YELLOW 02/25/22 09:45 Urine Clarity CLEAR (CLEAR) 02/25/22 09:45 Urine pH 7.5 PH (5.0-7.5) 02/25/22 09:45 Ur Specific Matthews 1.010 (1.002-1.030) 02/25/22 09:45 Urine Protein NEGATIVE mg/dL (NEGATIVE) 02/25/22 09:45 Urine Glucose (UA) NEGATIVE mg/dL (NEGATIVE) 02/25/22 09:45 Urine Ketones NEGATIVE mg/dL (NEGATIVE) 02/25/22 09:45 Urine Occult Blood SMALL (NEGATIVE) H 02/25/22 09:45 Urine Nitrite NEGATIVE (NEGATIVE) 02/25/22 09:45 Urine Bilirubin NEGATIVE (NEGATIVE) 02/25/22 09:45 Urine Urobilinogen 0.2 (NORMAL) E.U./dL (NORMAL) 02/25/22 09:45 Ur Leukocyte Esterase NEGATIVE (NEGATIVE) 02/25/22 09:45 Urine RBC 0-5 /HPF (0-5) 02/25/22 09:45 Urine WBC 0-3 /HPF (0-5) 02/25/22 09:45 Ur Squamous Epith Cells NONE SEEN (<= Few) 02/25/22 09:45 Urine Bacteria Few /HPF (None Seen) 02/25/22 09:45 Urine Culture Comments NOT INDICATED 02/25/22 09:45 SARS-CoV-2 (PCR) NOT DETECTED 02/24/22 21:55
== END 2022-02-25 11:06 | DRG 561 ==
LOC: SDS 06:47 → MS2 12:38 → SDS 02-14 12:36 → MS2 02-14 12:37 → OBSVTOIN 02-15 14:05
PROVIDERS: ADMIT Physician Assistant Surgical; ATTEND Orthopaedic Surgery
PROC: 0SW9XJZ Revision of Synthetic Substitute in Right Hip Joint, External Approach (ICD-10-PCS; principal; 2022-02-16 11:30)
DX: M16.11 Unilateral primary osteoarthritis, right hip (principal); T84.020A Dislocation of internal right hip prosthesis, initial encounter; Y83.1 Surgical operation with implant of artificial internal device as the cause of abnormal reaction of the patient, or of later complication, without mention of misadventure at the time of the procedure; Y92.239 Unspecified place in hospital as the place of occurrence of the external cause; Z87.891 Personal history of nicotine dependence; E87.6 Hypokalemia; R73.9 Hyperglycemia, unspecified; I10 Essential (primary) hypertension; G25.81 Restless legs syndrome; G25.0 Essential tremor; R30.0 Dysuria; D72.829 Elevated white blood cell count, unspecified; F32.A Depression, unspecified; G62.9 Polyneuropathy, unspecified; R09.02 Hypoxemia; Z20.822 Contact with and (suspected) exposure to COVID-19; Z88.0 Allergy status to penicillin
CPT/HCPCS: 27130; 27266; 36415; 71045; 72170; 72192; 73501; 73502; 80048; 80053; 81001; 83036; 83735; 85025; 87635; 97110; 97161; 97164; 97165; 97166; 97530; 97535; A9270; C1713; G0378; J0690; J3370; J7120; 87086

== ENCOUNTER 2022-03-26 14:38 | Outpatient (CLI) | payer MEDICARE ==
--- NOTE | 2022-03-26 15:58 | XRAY Report ---
PROCEDURE: Hip 2 View RT INDICATIONS: RIGHT TOTAL HIP TECHNIQUE: 2 views of the hip were acquired. COMPARISON: 02/20/2022 FINDINGS: Bones: Again seen is a healing minimally displaced fracture of the right inferior obturator ring. Kris ented right hip arthroplasty in place. No dislocation. Soft tissues: Overlying soft tissues obscures evaluation. No suspicious calcifications. Vascular calc ifications. IMPRESSION: Right hip arthroplasty in expected position. Again seen is a suspected minimally displaced fracture o f the right inferior obturator ring. Reviewed by: Clif Gill MD on 03/26/2022 3:57 PM PST Approved by: Clif Gill MD on 03/26/2022 3:57 PM PST Station ID: [id number]
== END 2022-03-26 14:39 | disposition home or self-care (01) ==
LOC: DI.WOS 14:38
PROVIDERS: ATTEND Orthopaedic Surgery
DX: Z96.641 Presence of right artificial hip joint (principal)

== ENCOUNTER 2022-05-06 10:51 | Outpatient (CLI) | payer MEDICARE ==
--- NOTE | 2022-05-06 15:34 | XRAY Report ---
PROCEDURE: Hip 2 View RT INDICATIONS: RIGHT TOTAL HIP F/U HX DISLOCATION TECHNIQUE: 2 views of the hip were acquired. COMPARISON: X-ray hip 03/26/2022 FINDINGS: Bones: No fractures or dislocations. No suspicious bony lesions. The visualized pelvic ring appear s intact. Right hip arthroplasty appears stable. Hardware is intact without evidence of hardware fra cture or periprosthetic lucency to suggest loosening. Moderate left hip arthritic narrowing. Soft tissues: No suspicious soft tissue calcifications or masses. IMPRESSION: Stable appearance of right hip arthroplasty. Reviewed by: Sonja Lewis MD on 05/06/2022 3:32 PM PST Approved by: Sonja Lewis MD on 05/06/2022 3:32 PM PST Station ID: [id number]
== END 2022-05-06 10:54 | disposition home or self-care (01) ==
LOC: DI.WOS 10:51
PROVIDERS: ATTEND Orthopaedic Surgery
DX: M16.11 Unilateral primary osteoarthritis, right hip (principal); Z96.641 Presence of right artificial hip joint

== ENCOUNTER 2022-08-06 08:00 | Outpatient (CLI) | payer MEDICARE ==
--- NOTE | 2022-08-06 16:05 | XRAY Report ---
PROCEDURE: Hip 2 View RT INDICATIONS: RIGHT TOTAL HIP TECHNIQUE: 2 views of the hip were acquired. COMPARISON: 05/06/2022. FINDINGS: Bones: Postsurgical changes from right hip arthroplasty. No acute fracture identified. Soft tissues: No suspicious soft tissue calcifications . IMPRESSION: Postsurgical changes from right hip arthroplasty. No acute osseous abnormality identified. Reviewed by: iDrk Martin MD on 08/06/2022 4:04 PM PDT Approved by: Dirk Martin MD on 08/06/2022 4:04 PM PDT Station ID: [id number]
== END 2022-08-06 23:59 | disposition home or self-care (01) ==
LOC: DI.WOS 08:00
PROVIDERS: ATTEND Orthopaedic Surgery
DX: Z96.641 Presence of right artificial hip joint (principal)

== ENCOUNTER 2023-09-18 15:30 | Outpatient (CLI) | payer MEDICARE ==
--- NOTE | 2023-09-18 20:55 | XRAY Report ---
PROCEDURE: Chest 2V INDICATIONS: COUGH TECHNIQUE: 2 views of the chest were acquired. COMPARISON: None. FINDINGS: Surgical changes and devices: None. Lungs and pleura: No pleural effusions or pneumothorax. Lungs are clear. Mediastinum: Mediastinal contours appear normal. Heart size is normal. Bones and chest wall: No suspicious bony lesions. Overlying soft tissues appear unremarkable. IMPRESSION: No acute cardiopulmonary process. Reviewed by: Sonja Lewis MD on 09/18/2023 8:53 PM PDT Approved by: Sonja Lewis MD on 09/18/2023 8:53 PM PDT Station ID: [id number]
== END 2023-09-18 15:31 | disposition home or self-care (01) ==
LOC: DI 15:30
PROVIDERS: ATTEND Student in an Organized Health Care Education/Training Program
DX: R05.9 Cough, unspecified (principal)